=== PATIENT | male | born 1970 | race Caucasian/White ===

== ENCOUNTER → 2016-05-28 | Outpatient (CLI) | payer OTHER ==
[~2016-05-28] MED LIST: ALBUAER2 INH; ALLO100T57 PO; AMLO5TAB4 PO; ASPI-232 PO; ASPI81TA82 PO; B-COTAB81 PO; BISA-16 PO; CALC0.2510 PO; CALC1TAB23 PO; FRS/40 PO; INSPMPNVLG; LEVO-14 PO; LEVO25TA PO; LIDO1PAD2 EXT; LISI-461 PO; MULTTAB58 PO; OXYC1TAB3 PO; OXYC2.5T4 PO; SENN-65 PO; SIMV20TA2 PO; SNG10 PO; SYN200 PO; VNTHFA/IN INH
== END | disposition home or self-care (01) ==
LOC: C.LAB 13:01
PROVIDERS: ATTEND Nurse Practitioner Adult Health
DX: E03.9 Hypothyroidism, unspecified (principal)

== ENCOUNTER 2016-09-02 11:49 | Day surgery (SDC) | payer OTHER ==
[~2016-09-02] VITALS: Ht 161.3 cm; Wt 91.9 kg
[~2016-09-02 11:49] MED LIST changes: -ASPI-232 PO; -BISA-16 PO; +CEFAZOLIN 1000MG/55 ML D5W IV SCH; +CEFAZOLIN 2000 MG/60 ML D5W 60 ML IV SCH; +D5W AND 1/4NSS 1000 ML IV SCH; -LIDO1PAD2 EXT; -OXYC2.5T4 PO; +PATIENT'S HEIGHT AND/OR WEIGHT NEEDED SCH; -SENN-65 PO; -VNTHFA/IN INH
[2016-09-02 12:32] VITALS: Ht 161.3 cm; Wt 91.9 kg
--- NOTE | 2016-09-02 12:43 | History and Physical ---
History & Physical Date of Service Sep 02, 2016. History & Physical Chief Complaint: Malfunctioning left upper arm fistula History of Present Illness History of Present Illness: The patient is a 42 year old male with a left upper arm fistula which is not running properly. Allergies Allergies: Coded Allergies: Milk (Verified Allergy, Unknown, 07/16/04) Cyclobenzaprine (Verified Adverse Reaction, Mild, FELT "AWFUL", 04/25/09) PT FELT AWFUL Surgical / Medical History Hx Cardiac Surgery: No Hx Abdominal Surgery: Yes (LAP FAREED) Hx Cancer Surgery: No Hx Thoracic Surgery: No Hx Orthopedic: Yes (LEFT KNEE SCOPE, LEFT SHOULDER SCOPE) Hx Urinary Tract Surgery: No HX Other Surgery: Yes (FISTULA OCT 2011, STAPH INFECTION OF BACK DRAINED) Past Medical History: Asthma, Diabetes, Hypertension, Kidney Disease, Thyroid Disease Social History Hx Tobacco Use In Past Year?: No Hx Alcohol Use - Type & Amnt: No Hx Substance Use -Type & Amnt: No Review of Systems Constitutional: No chills, No diaphoresis, No fever, No malaise, No weakness, No weight gain, No weight loss, No sweats, No fatigue, No problem reported Respiratory: No cough, No cyanosis, No ZAPATA, No hemoptysis, No orthopnea, No PND , No short of breath, No sputum production, No stridor, No wheezing, No dyspnea , No problem reported Cardiovascular: No chest pain, No chest tightness, No chest pressure, No palpitations, No syncope, No diaphoresis, No edema, No intermittent claudication , No orthopnea, No cyanosis, No mumur, No lightheadedness, No paroxysmal nocturnal dyspnea, No problem reported Gastrointestinal: No abdominal pain, No constipation, No diarrhea, No nausea, No vomiting, No anorexia, No appetite changes, No belching, No flatulence, No food intolerance, No hematemesis, No hemorrhoids, No hematochezia, No stool changes, No heartburn, No indigestion, No dysphagia, No rectal bleeding, No problem reported Physical Exam: Constitutional: General Apperance: heathly-appearing, well-nourished, well-developed Level of Distress: NAD Ambulation: ambulating normally Psychiatric: Mental Status: active & alert, normal mood, normal affect Orientation: oriented except where noted, to time, to place, to person Memory: recent memory normal, remote memory normal Neck: supple Lungs: Auscultation: breath sounds normal Cardiovascular: Heart Auscultation: RRR Peripheral Pulses: Radial Pulse: normal on the left, normal on the right Femoral Pulse: normal on the left, normal on the right Abdomen: Inspection & Palpation: soft Extremities: Upper Right: no cyanosis, no edema, no varicosities, no palpable cord, no clubbing, no ulcers, no mottling Upper Left: no cyanosis, no edema, no varicosities, no palpable cord, no clubbing, no ulcers, no mottling, pertinent finding (thrill and bruit in fistula ) Lower Right: no cyanosis, no edema, no varicosities, no palpable cord, no clubbing, no ulcers, no mottling Lower Left: no cyanosis, no edema, no varicosities, no palpable cord, no clubbing, no ulcers, no mottling Neurologic: Cranial Nerves: grossly intact Sensation: grossly intact Assessment and Plan: Imp: Malfunctioning fistula Plan: Patient for a fistulogram and possible intervention. He understands the risks options and benefits and agrees to the procedure.
--- NOTE | 2016-09-02 12:43 | Procedure Note ---
Pre-Mod Sedation Assessment General Date of Moderate Sedation: Sep 02, 2016. Pre-Sedation Airway Assessment Smoking Status: Never Smoker Mallampati Classification: Class I ASA Classification: Class III Notes The planned sedation has been discussed with the patient and consent obtained. I have identified the patient, determined the appropriateness of sedation and have assessed the patient immediately prior to the procedure. All medicine(s) and interventions are by my order.
[2016-09-02] MEDS ORDERED: FENTANYL CITRATE INJ 50 MCG/1 ML 2 ML VIAL ONE (13:58)
[2016-09-02] MEDS ORDERED: MIDAZOLAM HCL 1 MG/ML 2ML VIAL ONE (13:58)
[2016-09-02 14:01] VITALS: BP 122/72; TEMP 36.8; O2SAT 96
[2016-09-02] MEDS ORDERED: MIDAZOLAM HCL 1 MG/ML 2ML VIAL IV ONE (14:28)
[2016-09-02] MEDS ORDERED: FENTANYL CITRATE INJ 50 MCG/1 ML 2 ML VIAL IV ONE ×2 (14:29→14:48)
[2016-09-02] MEDS ORDERED: LIDOCAINE HCL 1% 20 ML VIAL INJ ONE (14:50)
--- NOTE | 2016-09-02 14:56 | [facility] Post Operative Brief Note ---
Immediate Operative Summary Operative Date Sep 02, 2016. Pre-Operative Diagnosis Malfunctioning Fistula Post-Operative Diagnosis Same Procedure(s) Performed Fistulogram SERVICE AND REPAIR SUPERVISOR venous Moderate conscious sedation Surgeon Alfonso Bottle Machine Operator Surgeon(s) Rubia Hurt MD Estimated Blood Loss 3 Findings 10 residual stenosis Specimens none Anesthesia Local with conscious sedation Complication(s) None Disposition
--- NOTE | 2016-09-02 14:57 | Procedure Note ---
Post-Moderate Sedation Plan General Date of Moderate Sedation Sep 02, 2016. Vital Signs: Vital Signs Past 12 Hours Date Time Temp Pulse Resp B/P (MAP) Pulse Ox O2 Delivery O2 Flow Rate FiO2 09/02/16 14:01 36.8 22 122/72 96 Room Air Review - Discharge Plan Post Moderate Sedation Plan: On clinical assessment, the patient appears to have tolerated the conscious sedation without complications. Patient is recovering as anticipated. Patient will continue to be monitored by nursing and may be discharged when conscious sedation discharge criteria are met.
[2016-09-02] MEDS ORDERED: OPTIRAY 300 IV ONE (14:58)
--- NOTE | 2016-09-02 14:58 | Discharge Instructions ---
Discharge Instructions Date of Service Sep 02, 2016. Visit Reason for Visit: Malfunctioning Arteriovenous Fistula, Esrd Discharge Discharge Diagnosis / Problem: Malfunctioning left arm fistula Discharge Goals Goal(s): Therapeutic intervention Activity Recommendations Activity Limitations: resume your previous activity Anesthesia . Post Anesthesia Instructions: If you have had General Anesthesia or IV Sedation: * Do not drive today. * Resume driving when surgeon permits. * Do not make important decisions or sign legal documents today. * Call surgeon for: 1. Temperature elevations greater than 101 degrees F. 2. Uncontrollable pain. 3. Excessive bleeding. 4. Persistent nausea and vomiting. 5. Medication intolerance (nausea, vomiting or rash). * For nausea and vomiting use only clear liquids such as: tea, soda, bouillon until nausea subsides, then gradually increase diet as tolerated. * If you have any concerns or questions, call your surgeon's office. If physician is unavailable and it is an emergency, call 911 or go to the nearest emergency room. . Instructions / Follow-Up Instructions / Follow-Up Call [phone] with any questions or concerns. SPECIAL CARE INSTRUCTIONS: Medications: * Continue to take your medications as directed. If you have been given a prescription for Plavix, please fill it immediately and take as directed. Incision Care: * Your puncture site may have some bruising and minor swelling for about one week. * You will have a small dressing covering your puncture site. You may remove the dressing after 24 hours and shower. You may let the warm soapy water run over it, but be sure to dry the puncture site well and keep it dry. * DO NOT IMMERSE THE INCISION IN A TUB/POOL/etc. UNTIL HEALED. * Puncture sites should be kept covered with a band-aid until it begins to heal. Restrictions: * Depending on whether you leg or arm was punctured to access the arteries, you will be required to lay flat, hold your arm still, or both, for about 4 hours after the procedure to prevent bleeding. * Limit your activity for the first 48 hours. You may walk and go up and down steps. Avoid excessive bending or movement at the puncture site. Possible Complications: * Excessive Swelling - after blood flow is improved you may notice increased swelling in the lower legs. This is a normal response. This usually depends on the amount of blockages in the leg, how long they have been there prior to your procedure and how much blood flow was restored. Elevating your legs will help to improve this. Please notify our office ([phone] ) if the swelling does not go away after lying in bed overnight. * Infection/Drainage/Bleeding - Drainage or bleeding from the puncture site should be minimal. If you have excessive bleeding or drainage, call our office ([phone]) right away. * Pain - You may experience some mild pain or soreness at your puncture site. If your pain does not improve, please contact our office ([phone]). Call your doctor and seek emergent treatment if you develop: * Temperature above 101 degrees * Any fever or chills * Any redness or purulent drainage from the puncture site * Any new dusky/blue colored toes or feet with coolness or sharp or aching pain. SKIN IRRITATION: * You may experience some redness and/or swelling in the area where radiation was administered. If any skin irritation occurs, please contact your family physician. FOLLOW UP VISIT: Keep any scheduled doctor appointments. Diet Recommendations Recommended Home Diet: resume previous diet Procedures Procedures Performed: Fistulogram DE ICER INSTALLER venous Moderate conscious sedation Pending Studies Studies pending at discharge: no Medical Emergencies . Who to Call and When: Medical Emergencies: If at any time you feel your situation is an emergency, please call 911 immediately. . Non-Emergent Contact Non-Emergency issues call your: Surgeon . . "Provider Documentation" section prepared by Maurilio Hamilton. .
[2016-09-02 15:05] VITALS: BP 134/74; PULSE 64; TEMP 36.4; O2SAT 93
[2016-09-02 15:35] VITALS: BP 148/78; PULSE 68; TEMP 36.4; O2SAT 99
--- NOTE | 2016-09-03 07:50 | DIAGNOSTIC IMAGING REPORT ---
DATE OF PROCEDURE: 09/02/2016 PREOPERATIVE DIAGNOSIS: Left arm arteriovenous fistula dysfunction. POSTOPERATIVE DIAGNOSIS: Left arm arteriovenous fistula dysfunction. PROCEDURE: Left arm fistulogram. SURGEON: Dr. Maurilio Hamilton. DIRECTOR OF GIFT PLANNING: Dr. Rubia Hurt. ANESTHESIA: 26 minutes of conscious sedation plus local. FINDINGS: Left arm fistulogram, venoplasty of left arm fistula with 6 x 20 mm balloon. CONDITION: Stable. COMPLICATIONS: None. INDICATIONS: Mr. Arden Zayas is a 46-year-old gentleman with end-stage renal disease on hemodialysis through a left forearm AV fistula. His flow has been slowly decreasing over the past several months. For this reason, he was recommended to undergo a left arm fistulogram. The risks, benefits and alternatives were discussed with the patient and he consented to the procedure. OPERATION AND FINDINGS: PROCEDURE: The patient was taken to the [facility] OR and placed in supine position. His left arm was prepped and draped in the usual sterile fashion. A safety timeout was performed and the patient, procedure, and side were correctly identified. The patient was given 1 mg of Versed and 50 mg of fentanyl for conscious sedation. He received a total of 26 minutes for conscious sedation. Local anesthesia was used to anesthetize the skin overlying the fistula just proximal to the wrist. A micropuncture needle was used to access the fistula and micropuncture mandril wire placed within the access needle. Micropuncture sheath was placed and a fistulogram was obtained. This showed a small area of slight narrowing in the forearm vein. Further images were obtained of the upper arm and central venous structures and showed no areas of stenosis. An 0.035 Glidewire was placed through the micropuncture sheath and into the basilic vein in the forearm. The micropuncture sheath was exchanged for a 5-Upper Sorbian sheath. A 6 x 20 mm balloon was placed into the area of stenosis and inflated. Balloon was removed and a completion fistulogram was obtained which showed good flow throughout the fistula. There were no other areas of stenosis identified. The sheath was removed and manual pressure was held over the access site for several minutes with good hemostasis. The thrill was improved following venoplasty. A sterile dressing was applied. The patient was transferred to the recovery area in stable condition. He tolerated the procedure well and there were no immediate complications. Dr. Maurilio Hamilton was present for the entire procedure. I, Dr. Hamilton was present and scrubed for the entire procedure. WALE
[2016-09-10] MEDS ORDERED: SYN200 PO (19:02)
[2016-09-10] MEDS ORDERED: ASPI-232 PO (19:02)
[2016-09-16] MEDS ORDERED: OXYC2.5T4 PO ×2 (16:46→16:52)
[2016-09-16] MEDS ORDERED: LIDO1PAD2 EXT ×2 (16:46→16:52)
[2016-09-16] MEDS ORDERED: SENN-65 PO ×2 (16:46→16:52)
== END 2016-09-02 15:45 | disposition home or self-care (01) ==
LOC: C.ACU 11:49
PROVIDERS: ATTEND Surgery Vascular Surgery
DX: T82.49XA Other complication of vascular dialysis catheter, initial encounter (principal); Y83.2 Surgical operation with anastomosis, bypass or graft as the cause of abnormal reaction of the patient, or of later complication, without mention of misadventure at the time of the procedure; N18.6 End stage renal disease

== ENCOUNTER 2016-09-10 12:15 | Inpatient (IN) | payer OTHER ==
[~2016-09-10] VITALS: Ht 160 cm; Wt 91.9 kg
[~2016-09-10 12:15] MED LIST changes: -ASPI81TA82 PO; -CEFAZOLIN 1000MG/55 ML D5W IV SCH; -CEFAZOLIN 2000 MG/60 ML D5W 60 ML IV SCH; -D5W AND 1/4NSS 1000 ML IV SCH; -LEVO25TA PO; -LISI-461 PO; -PATIENT'S HEIGHT AND/OR WEIGHT NEEDED SCH
[2016-09-10] MEDS ORDERED: ONDANSETRON INJ 2 MG/ML 2 ML VIAL IV STA ×2 (12:39→13:54)
[2016-09-10] MEDS ORDERED: MoRPHine SULFATE 10 MG/ML CARP/VIAL IV PRN (12:45)
[2016-09-10 12:57] LABS: MEAN CELL VOLUME 96.8 fL (80-100); MEAN CORPUSCULAR HEMOGLOBIN 33.1 pg (25-34); MEAN CORPUSCULAR HGB CONC 34.2 g/dl (32-36); PLATELET COUNT 175 K/uL (130-400); RED BLOOD COUNT 3.72 M/uL (4.7-6.1); WHITE BLOOD COUNT 9.28 K/uL (4.8-10.8)
[2016-09-10 13:24] LABS: BUN/CREATININE RATIO 6.1 (10-20); CALCIUM 8.8 mg/dl (8.5-10.1); POTASSIUM 3.5 mmol/L (3.5-5.1)
[2016-09-10] MEDS: HYDROmorphone INJ 1 MG/ML SYR IV PRN ×2 (14:04→15:02)
--- NOTE | 2016-09-10 14:10 | DIAGNOSTIC IMAGING REPORT ---
CT SCAN OF THE ABDOMEN AND PELVIS WITHOUT IV CONTRAST CLINICAL HISTORY: Left flank pain. COMPARISON STUDY: Abdominal CT dated 08/01/2012. TECHNIQUE: CT scan of the abdomen and pelvis is performed from the lung bases to the proximal femora. Images are reviewed in the axial, sagittal, and coronal planes. IV contrast was not administered for this examination. Automated dose control exposure was utilized. CT DOSE: 1611.25 mGy.cm FINDINGS: Lung bases: The heart is normal in size and there is trace pericardial fluid. The lung bases are clear noting dependent atelectasis. There is mild gynecomastia. Liver: The unenhanced liver is normal in size, contour, and attenuation. There is no intrahepatic biliary ductal dilatation. Gallbladder: Surgically absent noting clips in the gallbladder fossa. Spleen: The spleen is enlarged measuring 14 cm in length. Pancreas: The unenhanced pancreas is mildly atrophic and grossly unremarkable. Adrenal glands: Unremarkable. Kidneys: The unenhanced kidneys are atrophic and without hydronephrosis. There are no renal calculi identified. There are renovascular calcifications. There is no evidence of contour deforming renal mass lesion. Abdominal vasculature: The abdominal aorta is normal in course and caliber. There is advanced atherosclerotic calcification of the iliac arteries and the visceral vasculature. Bowel: There is evidence of small bowel malrotation. The duodenum fails to cross midline. No bowel obstruction is seen. The colon is normal in location. The appendix is well-visualized and normal. Peritoneum: There is no intraperitoneal free air or abdominal ascites. Lymphadenopathy: None. Pelvic viscera: The bladder, prostate, and seminal vesicles are normal as visualized. Skeletal structures: No lytic or blastic lesions are seen. IMPRESSION: 1. There are no acute infectious or inflammatory findings in the abdomen or pelvis. 2. Splenomegaly. 3. The kidneys are atrophic. 4. There is evidence of small bowel malrotation. The duodenum fails to cross midline. No bowel obstruction is seen. 5. Additional findings as above. Electronically signed by: Jae Rivero M.D. 09/10/2016 2:09 PM Dictated Date/Time: 09/10/2016 2:03 PM
[2016-09-10] MEDS ORDERED: OPTIRAY 320 IV PRN (16:15)
[2016-09-10] MEDS ORDERED: SNG10 PO (16:16)
[2016-09-10] MEDS ORDERED: VNTHFA/IN INH (16:16)
--- NOTE | 2016-09-10 16:29 | DIAGNOSTIC IMAGING REPORT ---
CT ANGIOGRAM OF THE CHEST CLINICAL HISTORY: Left-sided chest pain. COMPARISON STUDY: Chest x-ray dated 10/03/2015. TECHNIQUE: Following the IV administration of 79 cc of Optiray 320, CT angiogram of the chest was performed from the upper abdomen to the thoracic inlet utilizing the pulmonary embolus protocol. Images are reviewed in the axial, sagittal, and coronal planes. 3-D MIPS images are created and assessed. IV contrast was administered without complication. CT DOSE: 588.13 mGy.cm FINDINGS: Thyroid: Imaged portions of the thyroid gland are normal in size and attenuation. Thoracic aorta: The thoracic aorta is normal in caliber and demonstrates standard 3-vessel arch anatomy. No dissection is seen. Pulmonary vasculature: The pulmonary trunk is normal in caliber. There are no filling defects identified in main, lobar, or segmental pulmonary branches to suggest pulmonary embolus. Heart: The heart is mildly enlarged and there is trace pericardial fluid. Lungs and pleural spaces: There is no airspace consolidation or pleural effusion. Dependent atelectasis is noted. A 2 mm left upper lobe nodule along the major fissure as seen on image #142. This is of doubtful significance. The trachea and central airways are clear. Mediastinum: There is no mediastinal lymphadenopathy. Ariana: Clear. Axillae: There is no axillary lymphadenopathy. Upper abdomen: Cholecystectomy clips are noted. A tiny hiatal hernia is noted. Partially visualized upper abdominal viscera is otherwise within normal limits. Skeletal structures: No lytic or blastic bony lesions are seen. IMPRESSION: 1. There is no evidence of pulmonary embolus in the main, lobar, or segmental pulmonary arteries. 2. There is no airspace consolidation or pleural effusion. 3. Mild cardiac enlargement. Electronically signed by: Jae Rivero M.D. 09/10/2016 4:27 PM Dictated Date/Time: 09/10/2016 4:24 PM
[2016-09-10] MEDS ORDERED: ONDANSETRON INJ 2 MG/ML 2 ML VIAL IV PRN (18:45)
[2016-09-10] MEDS ORDERED: FUROSEMIDE 40 MG TAB PO SCH (18:45)
[2016-09-10] MEDS ORDERED: ACETAMINOPHEN 325 MG TAB PO PRN (18:45)
[2016-09-10] MEDS ORDERED: MAGNESIUM HYDROXIDE SUSP 30 ML UDC PO PRN (18:45)
[2016-09-10] MEDS ORDERED: ALUMINUM/MAGNESIUM/SIMETH (MAALOX MAX) 30 ML UDC PO PRN (18:45)
[2016-09-10] MEDS ORDERED: ALBUTEROL HFA 8 GM INHALER INH PRN (18:45)
[2016-09-10] MEDS ORDERED: SYN200 PO (19:02)
[2016-09-10] MEDS ORDERED: ASPI-232 PO (19:02)
[2016-09-10 19:07] LABS: URINE APPEARANCE CLEAR (CLEAR); URINE BILIRUBIN NEG (NEG); URINE COLOR YELLOW; URINE EPITHELIAL CELL AUTO >30 /lpf (0-5); URINE NITRITE NEG (NEG); URINE PH 5.5 (4.5-7.5); URINE SPECIFIC GRAVITY 1.018 (1.000-1.030); UROBILINOGEN NEG (NEG); ZZUR CULT IF INDIC CLEAN CATCH YES
[2016-09-10 19:08] LABS: MANUAL MICROSCOPIC REQUIRED? NO; REVIEW REQ? YES
[2016-09-10] MEDS ORDERED: LACTULOSE SYRUP 30 GM/45 ML UDP PO ONE (19:30)
[2016-09-10] MEDS ORDERED: POLYETHYLENE (MIRALAX) 17 GM PACK PO PRN (19:30)
--- NOTE | 2016-09-10 19:51 | Nephrology Consultation ---
Nephrology Consultation Date & Providers Date of Consultation: Sep 10, 2016. Primary Care Provider: Tricia Sanchez M.D. Referring Provider: Reason for Consultation ESRD History of Present Illness Arden Zayas is a 46-year-old male end-stage renal disease on hemodialysis, diabetes type 1 and hypertension. He was admitted from the ED today with notable back pain. Nephrologic consult was requested for management of the hemodialysis. Electronic medical records including labs and imaging studies were reviewed in detail. CTA chest and CT abdomen and pelvis were obtained in the ED. MRI of the back planned for tomorrow. Arden is very well known to or service. He is currently on dialysis Tuesday, Tuesday, Tuesday [place] [facility] [place] He has AVF. He is currently active on transplant wait list at [facility]. He missed his scheduled treatment today. He was previously admitted to [facility] in 2014 with back pain. MRI of the lumbar spine at that time showing L3-L4 disc herniation on the right side causing impingement on the nerve root. He was seen by orthopedics and subsequently underwent laminectomy. He has history of prior disc herniation and laminectomy in 2013. He denies any recent trauma or specific injury. Past Medical/Surgical History Medical: Diabetes mellitus type 1 ESRD due to diabetic nephropathy Hypertension Dyslipidemia Obesity Asthma Hypothyroidism Surgical: Lumbar laminectomy, AVF, lap choley, arthroscopy Allergies Coded Allergies: Milk (Verified Allergy, Unknown, 09/10/16) Cyclobenzaprine (Verified Adverse Reaction, Mild, FELT "AWFUL", 09/10/16) PT FELT AWFUL Inpatient Medications Current Inpatient Medications Medications (Trade) Dose Ordered Sig/Rani Route Start Time Stop Time Status Last Admin Dose Admin Morphine Sulfate (MoRPHine SULFATE INJ) 6 mg Q10M PRN IV 09/10/16 12:45 09/24/16 12:44 09/10/16 12:45 6 MG Hydromorphone HCl (Dilaudid Inj) 1 mg Q15M PRN IV 09/10/16 14:00 09/24/16 13:59 09/10/16 15:02 1 MG Ioversol (Optiray 320) 100 ml UD PRN IV 09/10/16 16:15 09/14/16 16:14 Acetaminophen (Tylenol Tab) 650 mg Q4H PRN PO 09/10/16 18:45 10/10/16 18:44 Al Hydrox/Mg Hydrox/Simethicone (Maalox Max Susp) 15 ml Q4H PRN PO 09/10/16 18:45 10/10/16 18:44 Magnesium Hydroxide (Milk Of Magnesia Susp) 30 ml Q6H PRN PO 09/10/16 18:45 10/10/16 18:44 Polyethylene (Miralax Powder Packet) 17 gm DAILY PRN PO 09/10/16 19:30 10/10/16 19:29 Ondansetron HCl (Zofran Inj) 4 mg Q6H PRN IV 09/10/16 18:45 10/10/16 18:44 Albuterol (Ventolin Hfa Inhaler) 2 puffs Q6H PRN INH 09/10/16 18:45 10/10/16 18:44 UNV Allopurinol (Zyloprim Tab) 200 mg DAILY PO 09/11/16 09:00 10/11/16 08:59 UNV Amlodipine Besylate (Norvasc Tab) 5 mg HS PO 09/10/16 21:00 10/10/16 20:59 UNV Calcitriol (Rocaltrol Cap) 0.25 mcg DAILY PO 09/11/16 09:00 10/11/16 08:59 UNV Furosemide (Lasix Tab) 40 mg 1200 PO 09/11/16 12:00 10/11/16 11:59 UNV Montelukast Sodium (Singulair Tab) 10 mg HS PO 09/10/16 21:00 10/10/16 20:59 UNV Multivitamins (Multivitamin Tab) 1 tab DAILY PO 09/11/16 09:00 10/11/16 08:59 UNV Simvastatin (Zocor Tab) 20 mg HS PO 09/10/16 21:00 10/10/16 20:59 UNV Non-Formulary Medication (Calcium Acetate (Phosphate Bin (Calcium Acetate)) 2,001 mg TIDM PO 09/11/16 08:00 10/11/16 07:59 UNV Non-Formulary Medication (Levocetirizine Dihydrochloride (Levocetirizine Dihydrochl)) 5 mg HS PO 09/10/16 21:00 10/10/16 20:59 UNV Oxycodone/ Acetaminophen (Percocet 5-325mg Tab) 1 tab Q4H PRN PO 09/10/16 18:45 09/24/16 18:44 Hydromorphone HCl (Dilaudid Inj) 0.5 mg Q3HWA PRN IV 09/10/16 18:45 09/24/16 18:44 Insulin Glargine (Lantus Solostar Pen) 10 unit HS SC 09/10/16 21:00 10/10/16 20:59 UNV Insulin Aspart (novoLOG ASPART) SLIDING SCALE G... ACHS SC 09/10/16 21:00 10/10/16 20:59 UNV Furosemide (Lasix Tab) 80 mg AMHS PO 09/10/16 21:00 10/10/16 18:44 UNV Aspirin (Ecotrin Tab) 81 mg DAILY PO 09/11/16 09:00 10/11/16 08:59 UNV Multivitamins (Folbee Plus Cz Tab) 1 tab UD PO 09/10/16 19:15 10/10/16 19:14 UNV Levothyroxine Sodium (Synthroid Tab) 225 mcg DAILY PO 09/11/16 09:00 10/11/16 08:59 UNV Family History Depression SISTER Diabetes mellitus MOTHER SISTER FH: cancer FATHER (lung CA) AUNT (breast CA) SISTER (melanoma) UNCLE (melanoma) Social History Smoking Status: Never Smoker Drug Use: none Marital Status: Housing Status: lives with family Occupation: employed Review of Systems A complete review of systems was performed. Pertinent positives are noted above. All other systems are negative. Physical Exam Date Time Temp Pulse Resp B/P (MAP) Pulse Ox O2 Delivery O2 Flow Rate FiO2 09/10/16 17:14 76 18 134/77 93 Room Air 09/10/16 16:13 76 16 96 Nasal Cannula 2.0 09/10/16 15:07 70 16 149/81 98 Room Air 09/10/16 13:48 75 16 149/83 99 Room Air 09/10/16 12:19 36.8 77 20 151/84 98 Room Air General Appearance: WD/WN, no apparent distress Head: normocephalic, atraumatic Eyes: normal inspection, sclerae normal ENT: normal ENT inspection, pharynx normal Neck: supple, no JVD Respiratory/Chest: lungs clear, no respiratory distress, no accessory muscle use Cardiovascular: regular rate, rhythm, + systolic murmur Abdomen/GI: non tender, soft Back: no CVA tenderness Extremities/Musculoskelatal: normal inspection, no pedal edema Neurologic/Psych: alert, oriented x 3 Laboratory Results Last 24 Hours Test 09/10/16 12:40 09/10/16 18:40 White Blood Count 9.28 K/uL Red Blood Count 3.72 M/uL Hemoglobin 12.3 g/dL Hematocrit 36.0 % Mean Corpuscular Volume 96.8 fL Mean Corpuscular Hemoglobin 33.1 pg Mean Corpuscular Hemoglobin Concent 34.2 g/dl RDW Standard Deviation 51.0 fL RDW Coefficient of Variation 14.3 % Platelet Count 175 K/uL Mean Platelet Volume 11.0 fL Sodium Level 139 mmol/L Potassium Level 3.5 mmol/L Chloride Level 98 mmol/L Carbon Dioxide Level 28 mmol/L Anion Gap 13.0 mmol/L Blood Urea Nitrogen 61 mg/dl Creatinine 10.00 mg/dl Est Creatinine Clear Calc Drug Dose 9.2 ml/min Estimated GFR () 6.3 Estimated GFR (Non- 5.5 BUN/Creatinine Ratio 6.1 Random Glucose 96 mg/dl Calcium Level 8.8 mg/dl Troponin I < 0.015 ng/ml Urine Color YELLOW Urine Appearance CLEAR Urine pH 5.5 Urine Specific [place] 1.018 Urine Protein 2+ Urine Glucose (UA) NEG Urine Ketones NEG Urine Occult Blood 1+ Urine Nitrite NEG Urine Bilirubin NEG Urine Urobilinogen NEG Urine Leukocyte Esterase MODERATE Urine WBC (Auto) >30 /hpf Urine RBC (Auto) 0-4 /hpf Urine Hyaline Casts (Auto) 5-10 /lpf Urine Epithelial Cells (Auto) >30 /lpf Urine Bacteria (Auto) NEG Urine Renal Epithelial Cells /lpf Urine Yeast (Auto) Impression (1) End-stage renal disease on hemodialysis (2) Hypertension (3) Back pain (4) DM type 1 (diabetes mellitus, type 1) Arden Zayas is a 46-year-old male with end-stage renal disease on hemodialysis. Blood pressure, volume status and electrolytes are currently appropriate. Plan of care was discussed with the admitting physician and the ED. He is on dialysis Tuesday, Tuesday, Tuesday but missed treatment today. There is no emergent need for HD. We will schedule dialysis for tomorrow as an inpatient. Recommendations End-stage renal disease: -- Orders entered for HD tomorrow -- Renal diet -- Medications appropriate for renal function Hypertension: --continue on current antihypertensive medications and low-salt diet. Anemia: --hold BHARAT as hemoglobin above 11 Secondary hyperparathyroidism: --continue on phosphate binders with meals
--- NOTE | 2016-09-10 20:01 | HISTORY & PHYSICAL EXAMINATION ---
DATE OF ADMISSION: 09/10/2016 CHIEF COMPLAINT: Severe back pain and constipation. HISTORY OF PRESENT ILLNESS: This is a 46-year-old male with past medical history significant for end-stage renal disease on dialysis, hypertension, GERD, obesity, hyperlipidemia, gout, type 1 diabetes, hypothyroidism, allergic rhinitis, presents with severe back pain. The patient says that he did not move his bowels for the last 2 days. Patient works in the hospital. At work today, could not bend his back and had a severe intractable back pain, brought tears to his eyes and he was brought into the ER. He says the pain was in the left back and slightly radiating to his groin. CAT scan of the abdomen and pelvis did not show any kidney stone. He had a small bowel movement in the morning, but otherwise he did not move bowels for the last 2 days. Denies any fevers, chills, no headaches. No blurred visions. Has some cough, was nauseous earlier. Currently, still has significant pain but is better than in the morning and he missed his dialysis today. Hemodynamically stable. ALLERGIES: TO CYCLOBENZAPRINE, MILK PROTEIN. PAST MEDICAL HISTORY: As mentioned above. PAST SURGICAL HISTORY: Cardiac cath, knee arthroscopy, laser trabeculoplasty, cholecystectomy. MEDICATIONS: The patient is on levocetirizine 5 mg p.o. daily, Lasix 80 mg in a.m. and 80 mg in p.m. and 40 mg in the afternoon, Ventolin HFA 2 puffs every 4 hours p.r.n., Singulair 10 mg p.o. at bedtime, NovoLog insulin pump, calcium acetate 667 mg three tablets p.o. t.i.d. with meals, simvastatin 20 mg p.o. daily, Folbee Plus 5 mg three times a week, baby aspirin 81 mg p.o. daily, allopurinol 200 mg p.o. daily, amlodipine 5 mg p.o. daily, Levoxyl 225 mcg daily, calcitriol 0.25 mcg p.o. daily, multivitamin 1 tablet p.o. daily. FAMILY HISTORY: Significant for father had lung cancer. The patient has asbestos exposure. Mother had lung disorder, diabetes and lung cancer. Sister has depression. SOCIAL HISTORY: . Never smoked. No alcohol. No drug use. REVIEW OF SYMPTOMS: As per HPI. Rest of review of symptoms negative. PHYSICAL EXAMINATION: GENERAL: The patient is obese, not in distress. VITAL SIGNS: Temperature 36.8, pulse 76, respiratory rate 18, blood pressure 134/77, oxygen 93% on room air. HEENT: No pallor, no icterus. Pupils equal, round, and reactive to light. NECK: No JVD, no neck masses, no carotid bruits. CARDIOVASCULAR: S1, S2 heard, regular rate and rhythm, no murmur, no gallop. RESPIRATORY SYSTEM: Clear to auscultation bilaterally. No wheezing, no crackles. ABDOMEN: Soft, bowel sounds present. Nontender. No distention. MUSCULOSKELETAL: Some point tenderness in the left lumbar paraspinal region. No erythema was seen. CENTRAL NERVOUS SYSTEM: Nonfocal. EXTREMITIES: No edema. No erythema. LABORATORY DATA: Sodium 139, potassium 3.5, chloride 98, bicarb 28, BUN 61, creatinine 10, serum glucose 96, calcium 8.8. Troponin I less than 0.015. WBC 9.2, hemoglobin 12.3, hematocrit 36, platelets 175. IMAGING DATA: CT of the chest, no evidence of pulmonary embolus, no airspace consolidation, mild cardiac enlargement. CT of the abdomen and pelvis, no acute infectious or inflammatory findings in the abdomen or pelvis. Splenomegaly. Kidneys are atrophic. No bowel obstruction is seen. No kidney stones. EKG: Normal sinus rhythm with rate of 68, no acute ST changes seen. ASSESSMENT AND PLAN: This is a 46-year-old male, who presents with severe back pain and constipation. 1. Severe low back pain. Radiating to the groin, but CAT scan was unremarkable. The patient's pain is somewhat better now.Received morphine, Dilaudid in the ER. We will observe. I will get MRI of the lumbar spine. Pain control. We will do a physical therapy, occupational therapy evaluation. 2. Constipation. We will place him on stool softeners. 3. End-stage renal disease on hemodialysis, missed dialysis today. Plan for dialysis in a.m. Nephrology consult. 4. Type 1 diabetes, on insulin pump. We will hold insulin pump for now and place him on insulin sliding scale and Lantus. We will monitor blood sugar. 5. Hypertension. Continue his home medications, amlodipine. We will monitor the blood pressure. 6. Gastroesophageal reflux disease. 7. Gout, allopurinol. 8. Asthma. Continue his home medications. 9. Deep vein thrombosis prophylaxis, SCDs and TEDs. 9. Disposition: Observation on medical floor. Level 1 full code. MTDD
[2016-09-10] MEDS ORDERED: GLUCOSE 40% GEL 15 GM TUBE PO PRN (20:30)
[2016-09-10] MEDS ORDERED: GLUCAGON FOR INJ 1 MG VIAL SQ PRN (20:30)
[2016-09-10] MEDS ORDERED: DEXTROSE 50% 50 ML SYR IV PRN (20:30)
[2016-09-10] MEDS ORDERED: GLUCOSE 10 TABS/TUBE PO PRN (20:30)
--- NOTE | 2016-09-10 20:57 | EMERGENCY ROOM VISIT NOTE ---
History Report prepared by Rupa: Michael Benson Under the Supervision of: Dr. Mateo Hendricks M.D. First contact with patient: 13:08 Chief Complaint: FLANK PAIN Stated Complaint: CONSTIPATED, PAIN History of Present Illness The patient is a 46 year old male who presents to the Emergency Room with complaints of worsening left flank pain that started a few hours ago. The patient says that he has also had left back pain. He says that he had a bit of pain last night and the pain got better until he sat down for lunch earlier today, and the pain then worsened a lot. He notes that he has never had anything this bad before. The patient is currently on dialysis, and today is a day that he should have it, but he called the clinic and was told that they will try to come here to do something for the patient. The patient was given medication here, which he says has helped a bit, but he still cannot get a full breath without having a lot of pain. Breathing worsens his pain. The patient states that he has been constipated this week, but he did have a very small bowel movement around 0830 this morning. He says that he had been constipated 4 or 5 months ago, but it resolved quickly with medication. The patient adds that he can only make a bit of urine. He has no history of kidney stones. The patient has a history of cholecystectomy, back surgeries, shoulder surgery, and diabetes. Pt denies LOC, headache, fevers, chills, diaphoresis, visual changes, neck pain, chest pain, nausea, vomiting, abdominal pain, melena, hematochezia, numbness, weakness, lymphadenopathy, rash, or other complaints. Source of History: patient Onset: A few hours ago Position: other (left flank) Quality: other (pain) Timing: worsening Modifying Factors (Worsening): breathing Associated Symptoms: + back pain (left), + urinary symptoms (can only make a bit of urine) Note: Associated symptoms: Bit of constipation this week. Review of Systems See HPI for pertinent positives and negatives. A total of ten systems were reviewed and were otherwise negative. Past Medical & Surgical Medical Problems: (1) Anemia (2) Asthma (3) Constipation (4) Diabetic retinopathy (5) DM type 1 (diabetes mellitus, type 1) (6) End-stage renal disease on hemodialysis (7) GERD (gastroesophageal reflux disease) (8) Gout (9) Hypercholesteremia (10) Hypertension (11) Hypothyroidism (12) S/p laser surgery of eye Surgical Problems: (1) H/O arthroscopic knee surgery (2) S/P cholecystectomy (3) S/P lumbar laminectomy Family History Depression SISTER Diabetes mellitus MOTHER SISTER FH: cancer FATHER (lung CA) AUNT (breast CA) SISTER (melanoma) UNCLE (melanoma) Social History Smoking Status: Never Smoker Drug Use: none Marital Status: Housing Status: lives with family Occupation Status: employed Current/Historical Medications Scheduled Albuterol Hfa (Ventolin Hfa), 2-4 PUFFS INH Q6H Allopurinol (Zyloprim), 200 MG PO DAILY Amlodipine Besylate (Norvasc), 5 MG PO HS Aspirin (Aspir-81), 1 TAB PO DAILY B-Complex W/ B-Ptrwej-Feqowvmj (Folbee Plus Cz), 1 TAB PO MWF Calcitriol (Rocaltrol Cap), 0.25 MCG PO DAILY Calcium Acetate (Phosphate Bin (Calcium Acetate), 2,001 MG PO TIDM Furosemide (Lasix), 80 MG PO am & pm Furosemide (Lasix), 40 MG PO 1200 Insulin Aspart (novoLOG INSULIN PUMP ), 1 EA N/A UD Levocetirizine Dihydrochloride (Levocetirizine Dihydrochl), 5 MG PO HS Levothyroxine Sodium (Synthroid), 225 MCG PO DAILY Montelukast Sod (Montelukast Sodium), 1 TAB PO HS Multiple Vitamin (Multivitamin), 1 TAB PO DAILY Simvastatin (Zocor), 20 MG PO HS Allergies Coded Allergies: Milk (Verified Allergy, Unknown, 09/10/16) Cyclobenzaprine (Verified Adverse Reaction, Mild, FELT "AWFUL", 09/10/16) PT FELT AWFUL Physical Exam Vital Signs Date Time Temp Pulse Resp B/P (MAP) Pulse Ox O2 Delivery O2 Flow Rate FiO2 09/10/16 19:50 81 16 131/92 96 Room Air 09/10/16 17:14 76 18 134/77 93 Room Air 09/10/16 16:13 76 16 96 Nasal Cannula 2.0 09/10/16 15:07 70 16 149/81 98 Room Air 09/10/16 13:48 75 16 149/83 99 Room Air 09/10/16 12:19 36.8 77 20 151/84 98 Room Air Physical Exam GENERAL: Awake, alert, uncomfortable appearing HENT: Normocephalic, atraumatic. Oropharynx unremarkable. EYES: Normal conjunctiva. Sclera non-icteric. NECK: Supple. No nuchal rigidity. FROM. No JVD. RESPIRATORY: Clear to auscultation. CARDIAC: Regular rate, normal rhythm. Extremities warm and well perfused. Pulses equal. ABDOMEN: Soft, non-distended. No tenderness to palpation. No rebound or guarding. No masses. RECTAL: Deferred. MUSCULOSKELETAL: Chest examination reveals no tenderness. The back is symmetrical on inspection without obvious abnormality. Left flank tenderness. Left CVA tenderness. No joint edema. LOWER EXTREMITIES: Trace lower extremity edema.. No discoloration. NEURO: Normal sensorium. No sensory or motor deficits noted. SKIN: No rash or jaundice noted. Medical Decision & Procedures ER Provider Diagnostic Interpretation: CT: Radiology results as stated below per my review and radiologist interpretation CT SCAN OF THE ABDOMEN AND PELVIS WITHOUT IV CONTRAST CLINICAL HISTORY: Left flank pain. COMPARISON STUDY: Abdominal CT dated 08/01/2012. TECHNIQUE: CT scan of the abdomen and pelvis is performed from the lung bases to the proximal femora. Images are reviewed in the axial, sagittal, and coronal planes. IV contrast was not administered for this examination. Automated dose control exposure was utilized. CT DOSE: 1611.25 mGy.cm FINDINGS: Lung bases: The heart is normal in size and there is trace pericardial fluid. The lung bases are clear noting dependent atelectasis. There is mild gynecomastia. Liver: The unenhanced liver is normal in size, contour, and attenuation. There is no intrahepatic biliary ductal dilatation. Gallbladder: Surgically absent noting clips in the gallbladder fossa. Spleen: The spleen is enlarged measuring 14 cm in length. Pancreas: The unenhanced pancreas is mildly atrophic and grossly unremarkable. Adrenal glands: Unremarkable. Kidneys: The unenhanced kidneys are atrophic and without hydronephrosis. There are no renal calculi identified. There are renovascular calcifications. There is no evidence of contour deforming renal mass lesion. Abdominal vasculature: The abdominal aorta is normal in course and caliber. There is advanced atherosclerotic calcification of the iliac arteries and the visceral vasculature. Bowel: There is evidence of small bowel malrotation. The duodenum fails to cross midline. No bowel obstruction is seen. The colon is normal in location. The appendix is well-visualized and normal. Peritoneum: There is no intraperitoneal free air or abdominal ascites. Lymphadenopathy: None. Pelvic viscera: The bladder, prostate, and seminal vesicles are normal as visualized. Skeletal structures: No lytic or blastic lesions are seen. IMPRESSION: 1. There are no acute infectious or inflammatory findings in the abdomen or pelvis. 2. Splenomegaly. 3. The kidneys are atrophic. 4. There is evidence of small bowel malrotation. The duodenum fails to cross midline. No bowel obstruction is seen. 5. Additional findings as above. Electronically signed by: Jae Rivero M.D. 09/10/2016 2:09 PM Dictated Date/Time: 09/10/2016 2:[address] ANGIOGRAM OF THE CHEST CLINICAL HISTORY: Left-sided chest pain. COMPARISON STUDY: Chest x-ray dated 10/03/2015. TECHNIQUE: Following the IV administration of 79 cc of Optiray 320, CT angiogram of the chest was performed from the upper abdomen to the thoracic inlet utilizing the pulmonary embolus protocol. Images are reviewed in the axial, sagittal, and coronal planes. 3-D MIPS images are created and assessed. IV contrast was administered without complication. CT DOSE: 588.13 mGy.cm FINDINGS: Thyroid: Imaged portions of the thyroid gland are normal in size and attenuation. Thoracic aorta: The thoracic aorta is normal in caliber and demonstrates standard 3-vessel arch anatomy. No dissection is seen. Pulmonary vasculature: The pulmonary trunk is normal in caliber. There are no filling defects identified in main, lobar, or segmental pulmonary branches to suggest pulmonary embolus. Heart: The heart is mildly enlarged and there is trace pericardial fluid. Lungs and pleural spaces: There is no airspace consolidation or pleural effusion. Dependent atelectasis is noted. A 2 mm left upper lobe nodule along the major fissure as seen on image #142. This is of doubtful significance. The trachea and central airways are clear. Mediastinum: There is no mediastinal lymphadenopathy. Ariana: Clear. Axillae: There is no axillary lymphadenopathy. Upper abdomen: Cholecystectomy clips are noted. A tiny hiatal hernia is noted. Partially visualized upper abdominal viscera is otherwise within normal limits. Skeletal structures: No lytic or blastic bony lesions are seen. IMPRESSION: 1. There is no evidence of pulmonary embolus in the main, lobar, or segmental pulmonary arteries. 2. There is no airspace consolidation or pleural effusion. 3. Mild cardiac enlargement. Electronically signed by: Jae Rivero M.D. 09/10/2016 4:27 PM Dictated Date/Time: 09/10/2016 4:24 PM Laboratory Results 09/10/16 12:40 09/10/16 12:40 Test 09/10/16 12:40 09/10/16 18:40 Red Blood Count 3.72 M/uL (4.7-6.1) Mean Corpuscular Volume 96.8 fL (80-100) Mean Corpuscular Hemoglobin 33.1 pg (25-34) Mean Corpuscular Hemoglobin Concent 34.2 g/dl (32-36) RDW Standard Deviation 51.0 fL (36.4-46.3) RDW Coefficient of Variation 14.3 % (11.5-14.5) Mean Platelet Volume 11.0 fL (7.4-10.4) Anion Gap 13.0 mmol/L (3-11) Est Creatinine Clear Calc Drug Dose 9.2 ml/min Estimated GFR () 6.3 Estimated GFR (Non- 5.5 BUN/Creatinine Ratio 6.1 (10-20) Calcium Level 8.8 mg/dl (8.5-10.1) Troponin I < 0.015 ng/ml (0-0.045) Urine Color YELLOW Urine Appearance CLEAR (CLEAR) Urine pH 5.5 (4.5-7.5) Urine Specific [place] 1.018 (1.000-1.030) Urine Protein 2+ (NEG) Urine Glucose (UA) NEG (NEG) Urine Ketones NEG (NEG) Urine Occult Blood 1+ (NEG) Urine Nitrite NEG (NEG) Urine Bilirubin NEG (NEG) Urine Urobilinogen NEG (NEG) Urine Leukocyte Esterase MODERATE (NEG) Urine WBC (Auto) >30 /hpf (0-5) Urine RBC (Auto) 0-4 /hpf (0-4) Urine Hyaline Casts (Auto) 5-10 /lpf (0-5) Urine Epithelial Cells (Auto) >30 /lpf (0-5) Urine Bacteria (Auto) NEG (NEG) Urine Renal Epithelial Cells /lpf (0-5) Urine Yeast (Auto) (NONE PRSENT) Laboratory results reviewed by me Medications Administered Medications (Trade) Dose Ordered Sig/Rani Route Start Time Stop Time Status Last Admin Dose Admin Ondansetron HCl (Zofran Inj) 4 mg NOW STAT IV 09/10/16 12:39 09/10/16 12:41 DC 09/10/16 12:45 4 MG Morphine Sulfate (MoRPHine SULFATE INJ) 6 mg Q10M PRN IV 09/10/16 12:45 09/24/16 12:44 09/10/16 12:45 6 MG Hydromorphone HCl (Dilaudid Inj) 1 mg Q15M PRN IV 09/10/16 14:00 09/24/16 13:59 09/10/16 15:02 1 MG Lactulose (Chronulac Syrup) 30 gm 1930 ONCE PO 09/10/16 19:30 09/10/16 19:31 DC 09/10/16 19:30 30 GM ECG Indication: SOB/dyspnea Rate (beats per minute): 68 Rhythm: normal sinus Findings: no acute ischemic change, no ectopy ED Course 1311: The patient was evaluated in room B7. A complete history and physical exam was performed. 1354: Ordered Zofran Inj 4 mg IV. 1400: Ordered Dilaudid Inj 1 mg IV PRN. 1535: I reevaluated and updated the patient. 1543: I discussed the patient with Dr. Delroy JOSE nephrology about doing a CT with contrast. He says that if we do that it would be best to keep the patient in the hospital overnight and do dialysis the next morning. 1600: I reevaluated the patient and told him that we will be getting him a CT of his chest. The patient has received a total of 1 dose of Morphine and 2 doses of Dilaudid. 1754: Upon reexamination, the patient was resting. I discussed the test results and treatment plan with him. The patient will be evaluated for further management. 1811: I discussed the patient with Mary Kate Cuevas - she will evaluate the patient for further treatment. Medical Decision Medication Reconciliation: I attest that I have personally reviewed the patient' s current medication list Blood pressure screening: Patient was found to have an elevated blood pressure and was referred to their primary doctor for recheck and further treatment. Triage Nursing notes reviewed. The patient's presentation and history were concerning for flank pain. Etiologies such as renal colic, diverticulitis, mesenteric ischemia, aortic pathology, infections, inflammatory bowel disease, PUD, biliary pathology, UTI, as well as others were entertained. The patient was quite uncomfortable. He was given Zofran and morphine. I was concerned for renal colic. The patient's cc was unremarkable. His creatinine was elevated consistent with end-stage renal disease. He CT imaging and this was negative. The patient was given a dose of Zofran and Dilaudid for additional symptom control. He did note additional pain and it seemed to be somewhat pleuritic as he was taking a deep breath and this was worsening. The patient will need further evaluation. I did discuss the case with nephrology because he will need IV contrast for a PE study. They will dialyze the patient in the hospital tomorrow morning if he goes through with the CT study. The patient underwent CT imaging and this did not reveal any evidence of pulmonary embolism. There is no clear identifying source of the patient's pain. This may be musculoskeletal. However the patient did require an additional dose of Dilaudid. I discussed case with internal medicine. The patient was evaluated in the Emergency Room for further management. Consults Time Called: 1535 Consulting Physician: Dr. Delroy JOSE nephrology Returned Call: [phone] I discussed the patient with Dr. Delroy JOSE nephrology about doing a CT with contrast. He says that if we do that it would be best to keep the patient in the hospital overnight and do dialysis the next morning. Additional Consults: Time Called: 1806 Consulted Physician: Mary Kate Cuevas Returned Call: [phone] Additional Comments: I discussed the patient with Mary Kate Cuevas - she will evaluate the patient for further treatment. Impression Primary Impression: Left flank pain Scribe Attestation The scribe's documentation has been prepared under my direction and personally reviewed by me in its entirety. I confirm that the note above accurately reflects all work, treatment, procedures, and medical decision making performed by me. Departure Information Dispostion Being Evaluated By Hospitalist Prescriptions Aspirin (ASPIR-81) 81 Mg Tab 1 TAB PO DAILY for 90 Days, #90 TAB 1 Refill Prov: Nael Link MD 09/10/16 Levothyroxine Sodium (Synthroid) 200 Mcg Tab 225 MCG PO DAILY, #90 Prov: Nael Link MD 09/10/16 Referrals Tricia Sanchez M.D. (PCP) Patient Instructions [facility]
[2016-09-10] MEDS ORDERED: LEVOCETIRIZINE DIHYDROCHLORIDE 5 MG PO SCH (21:00)
[2016-09-10] MEDS: INSULIN ASPART 100 UNITS/ML 3 ML PEN SC SCH ×2 (21:00→22:00)
--- NOTE | 2016-09-10 21:24 | DIAGNOSTIC IMAGING REPORT ---
LUMBAR SPINE MRI HISTORY: Back pain severe back pain TECHNIQUE: Multiplanar multisequence MRI of the lumbar spine was performed without the use of contrast. COMPARISON: 12/24/2014 FINDINGS: For the purpose of the report the L5-S1 disc space will be located on axial image 26 of 29. Moderate degenerative disc change throughout the mid to lower lumbar region. Stable postoperative changes involving the posterior paraspinal subcutaneous fat and musculature. This is similar compared to the prior study. L1-L2: No significant central canal or neural foraminal narrowing. L2-L3: No significant central canal or neural foraminal narrowing. L3-L4: Mild broad-based bulging disc somewhat diminished in prominence from the prior study. L4-L5: Left central bulging disc slightly diminished in prominence in the prior study. Mild narrowing of the neuroforamina bilaterally. L5-S1: No significant central canal or neural foraminal narrowing. IMPRESSION: 1. Similar to slightly improved exam compared to the prior study of 12/24/2014. 2. Bulging discs at L3-L4 and L4-L5 slightly improved from the prior study. 3. No evidence for an extruded disc fragment or major compromise of the neuroforamina on the current exam. 4. No evidence for progressive process. Electronically signed by: Handy Reyes M.D. 09/10/2016 9:23 PM Dictated Date/Time: 09/10/2016 9:18 PM
[2016-09-10] MEDS: HYDROmorphone INJ 0.5 MG/0.5 ML SYR IV PRN (21:26)
[2016-09-10 21:55] VITALS: BP 153/81; PULSE 70; TEMP 36.7; O2SAT 96; Ht 160 cm; Wt 91.9 kg
[2016-09-10] MEDS: AMLODIPINE BESYLATE 5 MG TAB PO SCH (22:39)
[2016-09-10] MEDS: MONTELUKAST SOD 10 MG TAB PO SCH (22:39)
[2016-09-10] MEDS: FUROSEMIDE 80 MG TAB PO SCH (22:39)
[2016-09-10] MEDS: SIMVASTATIN 20 MG TAB PO SCH (22:40)
[2016-09-10] MEDS: INSULIN GLARGINE SOLOSTAR 100 UNITS/ML 3 ML PEN SC SCH (22:43)
[2016-09-11] VITALS (21 sets, daily range): BP systolic 108–166; BP diastolic 58–90; PULSE 53–72; TEMP 36.4–36.8; O2SAT 95–100
[2016-09-11] MEDS: HYDROmorphone INJ 0.5 MG/0.5 ML SYR IV PRN ×6 (01:07→20:44)
[2016-09-11] MEDS: LEVOTHYROXINE SODIUM TAB 200 MCG, LEVOTHYROXINE SODIUM TAB 25 MCG PO SCH ×2 (07:04)
[2016-09-11 07:06] LABS: BASO % 0.3 %; BASO ABS # 0.02 K/uL (0-0.2); COMPLETE YES; EOS % 2.9 %; HEMATOCRIT 32.5 % (42-52); IG% 0.7 %; LYMPH ABS # 1.23 K/uL (1.2-3.4); MEAN CELL VOLUME 97.6 fL (80-100); MEAN CORPUSCULAR HEMOGLOBIN 32.7 pg (25-34); MEAN CORPUSCULAR HGB CONC 33.5 g/dl (32-36); MEAN PLATELET VOLUME 11.1 fL (7.4-10.4); MONO % 9.1 %; PLATELET COUNT 146 K/uL (130-400); RED BLOOD COUNT 3.33 M/uL (4.7-6.1); WHITE BLOOD COUNT 7.22 K/uL (4.8-10.8)
[2016-09-11] MEDS: ALLOPURINOL 100 MG TAB PO SCH (07:49)
[2016-09-11] MEDS: CALCIUM ACETATE 667MG GELCAP PO SCH ×3 (07:49→17:54)
[2016-09-11] MEDS: CALCITRIOL 0.25 MCG CAP PO SCH (07:49)
[2016-09-11] MEDS: FUROSEMIDE 80 MG TAB PO SCH ×2 (07:49→20:51)
[2016-09-11 07:50] LABS: BUN/CREATININE RATIO 5.5 (10-20); CALCIUM 8.1 mg/dl (8.5-10.1); MAGNESIUM 2.4 mg/dl (1.8-2.4); POTASSIUM 3.4 mmol/L (3.5-5.1)
[2016-09-11] MEDS: MULTIVITAMIN TAB PO SCH (07:50)
[2016-09-11] MEDS: ASPIRIN 81 MG ECTAB PO SCH (07:51)
[2016-09-11] MEDS ORDERED: LEVOTHYROXINE 200 MCG TAB PO SCH ×2 (08:00→09:00)
[2016-09-11] MEDS: INSULIN ASPART 100 UNITS/ML 3 ML PEN SC SCH ×4 (08:40→22:11)
[2016-09-11 08:45] LABS: ESTIMATED AVERAGE GLUCOSE 131 mg/dl; HA1C FLAG Normal (Normal)
--- NOTE | 2016-09-11 11:22 | Nephrology Progress Note ---
Nephrology Progress Note Date of Service Sep 11, 2016. Chief Complaint Follow-up for end-stage renal disease on hemodialysis. Sayra Castro was seen and examined in his room this morning. He continues to have severe lower back pain, responds to Dilaudid but requiring every 3 hours. Blood pressure and electrolyte acceptable, denies any shortness of breath or chest pain. Review of Systems A complete review of systems was performed. Pertinent positives are noted above. All other systems are negative. Vital Signs Last 8 Hrs Date Time Temp Pulse Resp B/P (MAP) Pulse Ox O2 Delivery O2 Flow Rate FiO2 09/11/16 08:45 Room Air 09/11/16 07:25 36.6 64 18 138/75 (96) 98 Last Recorded Weight Weight (Kilograms): 92.800 Physical Exam GENERAL: Middle-aged male, AAA x 3, pleasant, healthy-appearing, not in any distress. NECK: Supple, no JVD. RESPIRATORY: Normal breathing efforts, no accessory muscle use, clear to auscultation bilaterally, no wheezes or rales. CARDIOVASCULAR: S1, S2 normal, rate rhythm regular. EXTREMITY: trace bilateral lower extremity edema NEURO: speech fluent. PSYCHIATRY: Normal mood and judgment Family History Depression SISTER Diabetes mellitus MOTHER SISTER FH: cancer FATHER (lung CA) AUNT (breast CA) SISTER (melanoma) UNCLE (melanoma) Social History Smoking Status: Never smoker Drug Use: none Marital Status: Housing Status: lives with family Occupation: employed Laboratory Results Past 24 Hours 09/10/16 12:40 09/11/16 06:43 Red Blood Count 3.33, Mean Corpuscular Volume 97.6, Mean Corpuscular Hemoglobin 32.7, Mean Corpuscular Hemoglobin Concent 33.5, Mean Platelet Volume 11.1, Neutrophils (%) (Auto) 70.0, Lymphocytes (%) (Auto) 17.0, Monocytes (%) (Auto) 9.1, Eosinophils (%) (Auto) 2.9, Basophils (%) (Auto) 0.3, Neutrophils # (Auto) 5.05, Lymphocytes # (Auto) 1.23, Monocytes # (Auto) 0.66, Eosinophils # (Auto) 0.21, Basophils # (Auto) 0.02 09/10/16 12:40 09/11/16 06:43 Test 09/10/16 12:40 09/10/16 18:40 09/10/16 21:25 09/11/16 06:43 Red Blood Count 3.72 M/uL (4.7-6.1) 3.33 M/uL (4.7-6.1) Mean Corpuscular Volume 96.8 fL (80-100) 97.6 fL (80-100) Mean Corpuscular Hemoglobin 33.1 pg (25-34) 32.7 pg (25-34) Mean Corpuscular Hemoglobin Concent 34.2 g/dl (32-36) 33.5 g/dl (32-36) RDW Standard Deviation 51.0 fL (36.4-46.3) 51.2 fL (36.4-46.3) RDW Coefficient of Variation 14.3 % (11.5-14.5) 14.4 % (11.5-14.5) Mean Platelet Volume 11.0 fL (7.4-10.4) 11.1 fL (7.4-10.4) Anion Gap 13.0 mmol/L (3-11) 14.0 mmol/L (3-11) Est Creatinine Clear Calc Drug Dose 9.2 ml/min 8.3 ml/min Estimated GFR () 6.3 5.7 Estimated GFR (Non- 5.5 4.9 BUN/Creatinine Ratio 6.1 (10-20) 5.5 (10-20) Calcium Level 8.8 mg/dl (8.5-10.1) 8.1 mg/dl (8.5-10.1) Troponin I < 0.015 ng/ml (0-0.045) Urine Color YELLOW Urine Appearance CLEAR (CLEAR) Urine pH 5.5 (4.5-7.5) Urine Specific Peck 1.018 (1.000-1.030) Urine Protein 2+ (NEG) Urine Glucose (UA) NEG (NEG) Urine Ketones NEG (NEG) Urine Occult Blood 1+ (NEG) Urine Nitrite NEG (NEG) Urine Bilirubin NEG (NEG) Urine Urobilinogen NEG (NEG) Urine Leukocyte Esterase MODERATE (NEG) Urine WBC (Auto) >30 /hpf (0-5) Urine RBC (Auto) 0-4 /hpf (0-4) Urine Hyaline Casts (Auto) 5-10 /lpf (0-5) Urine Epithelial Cells (Auto) >30 /lpf (0-5) Urine Bacteria (Auto) NEG (NEG) Urine Renal Epithelial Cells /lpf (0-5) Urine Yeast (Auto) (NONE PRSENT) Bedside Glucose 134 mg/dl (70-99) White Blood Count 7.22 K/uL (4.8-10.8) Hemoglobin 10.9 g/dL (14.0-18.0) Hematocrit 32.5 % (42-52) Platelet Count 146 K/uL (130-400) Neutrophils (%) (Auto) 70.0 % Lymphocytes (%) (Auto) 17.0 % Monocytes (%) (Auto) 9.1 % Eosinophils (%) (Auto) 2.9 % Basophils (%) (Auto) 0.3 % Neutrophils # (Auto) 5.05 K/uL (1.4-6.5) Lymphocytes # (Auto) 1.23 K/uL (1.2-3.4) Monocytes # (Auto) 0.66 K/uL (0.11-0.59) Eosinophils # (Auto) 0.21 K/uL (0-0.5) Basophils # (Auto) 0.02 K/uL (0-0.2) Immature Granulocyte % (Auto) 0.7 % Immature Granulocyte # (Auto) 0.05 K/uL (0.00-0.02) Magnesium Level 2.4 mg/dl (1.8-2.4) Test 09/11/16 06:45 09/11/16 07:19 Estimated Average Glucose 131 mg/dl Hemoglobin A1c 6.2 % (4.5-5.6) Bedside Glucose 181 mg/dl (70-99) Date/Time Source Procedure Growth Status 09/10/16 22:30 Nasal MRSA DNA Surveillance Screen - Final Specimen Negative for MRSA by DNA Probe Complete Allergies Coded Allergies: Milk (Verified Allergy, Unknown, 09/10/16) Cyclobenzaprine (Verified Adverse Reaction, Mild, FELT "AWFUL", 09/10/16) PT FELT AWFUL Medications Current Inpatient Medications Medications (Trade) Dose Ordered Sig/Rani Route Start Time Stop Time Status Last Admin Dose Admin Ioversol (Optiray 320) 100 ml UD PRN IV 09/10/16 16:15 09/14/16 16:14 Acetaminophen (Tylenol Tab) 650 mg Q4H PRN PO 09/10/16 18:45 10/10/16 18:44 Al Hydrox/Mg Hydrox/Simethicone (Maalox Max Susp) 15 ml Q4H PRN PO 09/10/16 18:45 10/10/16 18:44 Magnesium Hydroxide (Milk Of Magnesia Susp) 30 ml Q6H PRN PO 09/10/16 18:45 10/10/16 18:44 Polyethylene (Miralax Powder Packet) 17 gm DAILY PRN PO 09/10/16 19:30 10/10/16 19:29 Ondansetron HCl (Zofran Inj) 4 mg Q6H PRN IV 09/10/16 18:45 10/10/16 18:44 Albuterol (Ventolin Hfa Inhaler) 2 puffs Q6H PRN INH 09/10/16 18:45 10/10/16 18:44 Allopurinol (Zyloprim Tab) 200 mg DAILY PO 09/11/16 08:00 10/11/16 08:59 09/11/16 07:49 200 MG Amlodipine Besylate (Norvasc Tab) 5 mg HS PO 09/10/16 21:00 10/10/16 20:59 09/10/16 22:39 5 MG Calcitriol (Rocaltrol Cap) 0.25 mcg DAILY PO 09/11/16 08:00 10/11/16 08:59 09/11/16 07:49 0.25 MCG Furosemide (Lasix Tab) 40 mg DAILY@1200 PO 09/11/16 12:00 10/11/16 11:59 Montelukast Sodium (Singulair Tab) 10 mg HS PO 09/10/16 21:00 10/10/16 20:59 09/10/16 22:39 10 MG Multivitamins (Multivitamin Tab) 1 tab DAILY PO 09/11/16 08:00 10/11/16 08:59 09/11/16 07:50 1 TAB Simvastatin (Zocor Tab) 20 mg HS PO 09/10/16 21:00 10/10/16 20:59 09/10/16 22:40 20 MG Calcium Acetate (Phoslo Cap) 2,001 mg TIDM PO 09/11/16 08:00 10/11/16 07:59 09/11/16 07:49 2,001 MG Oxycodone/ Acetaminophen (Percocet 5-325mg Tab) 1 tab Q4H PRN PO 09/10/16 18:45 09/24/16 18:44 Hydromorphone HCl (Dilaudid Inj) 0.5 mg Q3HWA PRN IV 09/10/16 18:45 09/24/16 18:44 09/11/16 08:26 0.5 MG Insulin Glargine (Lantus Solostar Pen) 10 unit HS SC 09/10/16 21:00 10/10/16 20:59 09/10/16 22:43 10 UNIT Insulin Aspart (novoLOG ASPART) SLIDING SCALE G... ACHS SC 09/10/16 21:00 10/10/16 20:59 09/11/16 08:40 4 UNITS Furosemide (Lasix Tab) 80 mg AMHS PO 09/10/16 21:00 10/10/16 18:44 09/11/16 07:49 80 MG Aspirin (Ecotrin Tab) 81 mg DAILY PO 09/11/16 08:00 10/11/16 08:59 09/11/16 07:51 81 MG Multivitamins (Folbee Plus Cz Tab) 1 tab MoWeFr@1600 PO 09/13/16 16:00 10/13/16 15:59 Glucose (Glucose 40% Gel) 15-30 GRAMS 15 GRAMS... UD PRN PO 09/10/16 20:30 10/10/16 20:29 Glucose (Glucose Chew Tab) 4-8 Tablets 4 Tabl... UD PRN PO 09/10/16 20:30 10/10/16 20:29 Dextrose (Dextrose 50% 50ML Syringe) 25-50ML OF 50% DW IV FOR... UD PRN IV 09/10/16 20:30 10/10/16 20:29 Glucagon (Glucagon Inj) 1 mg UD PRN SQ 09/10/16 20:30 10/10/16 20:29 Miscellaneous Information (Order Awaiting Action) 1 ea QS N/A 09/11/16 00:00 10/11/16 00:00 Levothyroxine Sodium (Synthroid Tab) 225 mcg DAILYBB PO 09/11/16 06:30 10/11/16 06:59 09/11/16 07:04 225 MCG Impression (1) End-stage renal disease on hemodialysis (2) Hypertension (3) Back pain (4) DM type 1 (diabetes mellitus, type 1) Arden Zayas is a 46-year-old male with end-stage renal disease on hemodialysis. Blood pressure, volume status and electrolytes are currently appropriate. P He is on dialysis Tuesday, Tuesday, Tuesday but missed treatment on Tuesday. Admitted with severe back pain however workup including MRI of lower back, abdomen pelvis CT scan as well as CTA chest was unremarkable. no explanation for the severe pain which patient still experiencing but getting relief with Dilaudid every 3 hours. Patient does have significant history of herniated disc however MRI reports that improvement from prior MRI which makes it difficult to explain his severe back pain. Recommendations -- plan for hemodialysis this morning with 4 K bath -- Renal diet -- avoid IV fluid -- Medications appropriate for renal function --continue on current antihypertensive medications and low-salt diet. --continue on phosphate binders with meals --although all imaging has been negative but patient continues to have severe pain. if patient continues to have pain may need ortho evaluation.
[2016-09-11] MEDS: FUROSEMIDE 40 MG TAB PO SCH (15:54)
--- NOTE | 2016-09-11 19:10 | Progress Note ---
Internal Med Progress Note Date of Service: Sep 11, 2016. Provider Documentation: SUBJECTIVE: s/p dialysis today still has significant back pain says Dilaudid only helping for short period of time had small bowel movement today afebrile no sob upset that still has pain OBJECTIVE: Vital Signs-as noted below Exam: General-alert and oriented. Not in distress. ENT-normal hearing Neck-no neck masses Lungs-cta b/l no wheezing or crackles Heart-s1 and s2 heard regular no murmurs Abdomen-soft bowel sounds present nontender no distension Extremities- no erythema no edema Neuro-alert and oriented moves extremities Lab data as noted below. ASSESSMENT & PLAN: : This is a 46-year-old male, who presents with severe back pain and constipation. 1. Severe low back pain. Radiating to the groin, but CAT scan was unremarkable. The patient's pain is somewhat improved with iv pain meds in Er.MRI no acute issues.Hx of lumbar laminectomy. But again having severe pain today continue current pain meds Will consult Orthopedics for further recommendations. 2. Constipation. We will place him on stool softeners.Moved bowels. 3. End-stage renal disease on hemodialysis, missed dialysis yesterday. Had dialysis today.. Nephrology consult. 4. Type 1 diabetes, on insulin pump. Holding insulin pump for now and place him on insulin sliding scale and Lantus. We will monitor blood sugar. 131/181/140/133. 5. Hypertension. Continue his home medications, amlodipine. We will monitor the blood pressure. 6. Gout, allopurinol. 7. Asthma. Continue his home medications. 8. Deep vein thrombosis prophylaxis, SCDs and TEDs. 9. Disposition: Observation on medical floor. Level 1 full code. Vital Signs: Date Time Temp Pulse Resp B/P (MAP) Pulse Ox O2 Delivery O2 Flow Rate FiO2 09/11/16 16:45 Room Air 09/11/16 15:55 36.5 65 20 145/80 (101) 100 09/11/16 15:41 36.8 71 150/69 (96) 09/11/16 15:25 68 119/62 09/11/16 15:15 72 121/59 09/11/16 15:00 63 116/64 09/11/16 14:45 61 108/75 09/11/16 14:30 61 122/63 09/11/16 14:15 61 116/73 09/11/16 14:00 65 124/68 09/11/16 13:45 68 119/71 09/11/16 13:30 64 125/75 09/11/16 13:15 59 119/74 09/11/16 13:00 62 114/70 09/11/16 12:45 65 119/68 09/11/16 12:30 68 128/75 09/11/16 12:15 65 139/79 09/11/16 12:00 60 135/68 09/11/16 11:45 53 151/90 09/11/16 11:30 36.4 60 134/58 (83) 09/11/16 08:45 Room Air 09/11/16 07:25 36.6 64 18 138/75 (96) 98 09/11/16 00:28 36.8 62 18 166/85 (112) 95 Room Air 09/11/16 00:00 Room Air 09/10/16 21:55 36.7 70 18 153/81 96 Room Air 09/10/16 19:50 81 16 131/92 96 Room Air Lab Results: Results Past 24 Hours Test 09/10/16 21:25 09/11/16 06:43 09/11/16 06:45 09/11/16 07:19 Range/Units Bedside Glucose 134 181 70-99 mg/dl White Blood Count 7.22 4.8-10.8 K/uL Red Blood Count 3.33 4.7-6.1 M/uL Hemoglobin 10.9 14.0-18.0 g/dL Hematocrit 32.5 42-52 % Mean Corpuscular Volume 97.6 80-100 fL Mean Corpuscular Hemoglobin 32.7 25-34 pg Mean Corpuscular Hemoglobin Concent 33.5 32-36 g/dl Platelet Count 146 130-400 K/uL Mean Platelet Volume 11.1 7.4-10.4 fL Neutrophils (%) (Auto) 70.0 % Lymphocytes (%) (Auto) 17.0 % Monocytes (%) (Auto) 9.1 % Eosinophils (%) (Auto) 2.9 % Basophils (%) (Auto) 0.3 % Neutrophils # (Auto) 5.05 1.4-6.5 K/uL Lymphocytes # (Auto) 1.23 1.2-3.4 K/uL Monocytes # (Auto) 0.66 0.11-0.59 K/uL Eosinophils # (Auto) 0.21 0-0.5 K/uL Basophils # (Auto) 0.02 0-0.2 K/uL RDW Standard Deviation 51.2 36.4-46.3 fL RDW Coefficient of Variation 14.4 11.5-14.5 % Immature Granulocyte % (Auto) 0.7 % Immature Granulocyte # (Auto) 0.05 0.00-0.02 K/uL Sodium Level 138 136-145 mmol/L Potassium Level 3.4 3.5-5.1 mmol/L Chloride Level 98 98-107 mmol/L Carbon Dioxide Level 26 21-32 mmol/L Anion Gap 14.0 3-11 mmol/L Blood Urea Nitrogen 61 7-18 mg/dl Creatinine 11.00 0.60-1.40 mg/dl Est Creatinine Clear Calc Drug Dose 8.3 ml/min Estimated GFR () 5.7 Estimated GFR (Non- 4.9 BUN/Creatinine Ratio 5.5 10-20 Random Glucose 176 70-99 mg/dl Calcium Level 8.1 8.5-10.1 mg/dl Magnesium Level 2.4 1.8-2.4 mg/dl Estimated Average Glucose 131 mg/dl Hemoglobin A1c 6.2 4.5-5.6 % Test 09/11/16 11:21 09/11/16 16:15 Range/Units Bedside Glucose 140 133 70-99 mg/dl Microbiology Results 09/10/16 MRSA DNA Surveillance Screen - Final, Complete Specimen Negative for MRSA by DNA Probe
[2016-09-11] MEDS: SIMVASTATIN 20 MG TAB PO SCH (20:51)
[2016-09-11] MEDS: MONTELUKAST SOD 10 MG TAB PO SCH (20:51)
[2016-09-11] MEDS: AMLODIPINE BESYLATE 5 MG TAB PO SCH (20:52)
[2016-09-11] MEDS: INSULIN GLARGINE SOLOSTAR 100 UNITS/ML 3 ML PEN SC SCH (22:11)
[2016-09-12 00:06] VITALS: BP 132/82; PULSE 68; TEMP 36.8; O2SAT 98
[2016-09-12] MEDS: HYDROmorphone INJ 0.5 MG/0.5 ML SYR IV PRN ×5 (00:07→23:23)
[2016-09-12] MEDS: LEVOTHYROXINE SODIUM TAB 200 MCG, LEVOTHYROXINE SODIUM TAB 25 MCG PO SCH ×2 (06:25)
[2016-09-12 06:54] LABS: BASO % 0.5 %; BASO ABS # 0.04 K/uL (0-0.2); COMPLETE YES; EOS % 3.7 %; HEMATOCRIT 37.1 % (42-52); IG% 0.7 %; LYMPH % 17.2 %; LYMPH ABS # 1.45 K/uL (1.2-3.4); MEAN CELL VOLUME 97.1 fL (80-100); MEAN CORPUSCULAR HEMOGLOBIN 33.2 pg (25-34); MEAN CORPUSCULAR HGB CONC 34.2 g/dl (32-36); MEAN PLATELET VOLUME 10.9 fL (7.4-10.4); MONO % 8.8 %; NEUT % 69.1 %; PLATELET COUNT 169 K/uL (130-400); RED BLOOD COUNT 3.82 M/uL (4.7-6.1); WHITE BLOOD COUNT 8.43 K/uL (4.8-10.8)
[2016-09-12 07:15] VITALS: BP 148/81; PULSE 63; TEMP 36.6; O2SAT 96
[2016-09-12 07:42] LABS: CREATININE 8.1 mg/dl (0.60-1.40)
[2016-09-12 07:43] LABS: BUN/CREATININE RATIO 5.1 (10-20); MAGNESIUM 2.4 mg/dl (1.8-2.4)
[2016-09-12 08:01] LABS: CALCIUM 8.9 mg/dl (8.5-10.1)
[2016-09-12 08:10] LABS: POTASSIUM 4.1 mmol/L (3.5-5.1)
[2016-09-12] MEDS: FUROSEMIDE 80 MG TAB PO SCH ×2 (08:36→20:45)
[2016-09-12] MEDS: MULTIVITAMIN TAB PO SCH (08:36)
[2016-09-12] MEDS: ALLOPURINOL 100 MG TAB PO SCH (08:36)
[2016-09-12] MEDS: CALCITRIOL 0.25 MCG CAP PO SCH (08:36)
[2016-09-12] MEDS: ASPIRIN 81 MG ECTAB PO SCH (08:36)
[2016-09-12] MEDS: CALCIUM ACETATE 667MG GELCAP PO SCH ×3 (08:50→16:56)
[2016-09-12] MEDS: INSULIN ASPART 100 UNITS/ML 3 ML PEN SC SCH ×4 (08:54→20:47)
[2016-09-12] MEDS: FUROSEMIDE 40 MG TAB PO SCH (11:35)
--- NOTE | 2016-09-12 11:46 | Nephrology Progress Note ---
Nephrology Progress Note Date of Service Sep 12, 2016. Chief Complaint Follow-up for end-stage renal disease on hemodialysis. Sayra Castro was seen and examined in his room this morning. He continues to have significant lower back pain specially with sitting and lying down however pain improves when he is standing or walking. Had dialysis yesterday, tolerated well , currently blood pressure volume status and electrolytes stable. Review of Systems A complete review of systems was performed. Pertinent positives are noted above. All other systems are negative. Vital Signs Last 8 Hrs Date Time Temp Pulse Resp B/P (MAP) Pulse Ox O2 Delivery O2 Flow Rate FiO2 09/12/16 08:45 Room Air 09/12/16 07:15 36.6 63 18 148/81 (103) 96 Last Recorded Weight Weight (Kilograms): 90.400 Physical Exam GENERAL: Middle-aged male, AAA x 3, pleasant, healthy-appearing, not in any distress. NECK: Supple, no JVD. RESPIRATORY: Normal breathing efforts, no accessory muscle use, clear to auscultation bilaterally, no wheezes or rales. CARDIOVASCULAR: S1, S2 normal, rate rhythm regular. EXTREMITY: trace bilateral lower extremity edema NEURO: speech fluent. PSYCHIATRY: Normal mood and judgment Family History Depression SISTER Diabetes mellitus MOTHER SISTER FH: cancer FATHER (lung CA) AUNT (breast CA) SISTER (melanoma) UNCLE (melanoma) Social History Smoking Status: Never smoker Drug Use: none Marital Status: Housing Status: lives with family Occupation: employed Laboratory Results Past 24 Hours 09/12/16 06:21 Red Blood Count 3.82, Mean Corpuscular Volume 97.1, Mean Corpuscular Hemoglobin 33.2, Mean Corpuscular Hemoglobin Concent 34.2, Mean Platelet Volume 10.9, Neutrophils (%) (Auto) 69.1, Lymphocytes (%) (Auto) 17.2, Monocytes (%) (Auto) 8.8, Eosinophils (%) (Auto) 3.7, Basophils (%) (Auto) 0.5, Neutrophils # (Auto) 5.83, Lymphocytes # (Auto) 1.45, Monocytes # (Auto) 0.74, Eosinophils # (Auto) 0.31, Basophils # (Auto) 0.04 09/12/16 06:21 Test 09/11/16 16:15 09/11/16 19:52 6/25/17 06:21 09/12/16 07:23 Bedside Glucose 133 mg/dl (70-99) 155 mg/dl (70-99) 109 mg/dl (70-99) White Blood Count 8.43 K/uL (4.8-10.8) Red Blood Count 3.82 M/uL (4.7-6.1) Hemoglobin 12.7 g/dL (14.0-18.0) Hematocrit 37.1 % (42-52) Mean Corpuscular Volume 97.1 fL (80-100) Mean Corpuscular Hemoglobin 33.2 pg (25-34) Mean Corpuscular Hemoglobin Concent 34.2 g/dl (32-36) Platelet Count 169 K/uL (130-400) Mean Platelet Volume 10.9 fL (7.4-10.4) Neutrophils (%) (Auto) 69.1 % Lymphocytes (%) (Auto) 17.2 % Monocytes (%) (Auto) 8.8 % Eosinophils (%) (Auto) 3.7 % Basophils (%) (Auto) 0.5 % Neutrophils # (Auto) 5.83 K/uL (1.4-6.5) Lymphocytes # (Auto) 1.45 K/uL (1.2-3.4) Monocytes # (Auto) 0.74 K/uL (0.11-0.59) Eosinophils # (Auto) 0.31 K/uL (0-0.5) Basophils # (Auto) 0.04 K/uL (0-0.2) RDW Standard Deviation 51.2 fL (36.4-46.3) RDW Coefficient of Variation 14.4 % (11.5-14.5) Immature Granulocyte % (Auto) 0.7 % Immature Granulocyte # (Auto) 0.06 K/uL (0.00-0.02) Anion Gap 9.0 mmol/L (3-11) Est Creatinine Clear Calc Drug Dose 11.1 ml/min Estimated GFR () 8.2 Estimated GFR (Non- 7.1 BUN/Creatinine Ratio 5.1 (10-20) Calcium Level 8.9 mg/dl (8.5-10.1) Magnesium Level 2.4 mg/dl (1.8-2.4) Allergies Coded Allergies: Milk (Verified Allergy, Unknown, 09/10/16) Cyclobenzaprine (Verified Adverse Reaction, Mild, FELT "AWFUL", 09/10/16) PT FELT AWFUL Medications Current Inpatient Medications Medications (Trade) Dose Ordered Sig/Rani Route Start Time Stop Time Status Last Admin Dose Admin Ioversol (Optiray 320) 100 ml UD PRN IV 09/10/16 16:15 09/14/16 16:14 Acetaminophen (Tylenol Tab) 650 mg Q4H PRN PO 09/10/16 18:45 10/10/16 18:44 Al Hydrox/Mg Hydrox/Simethicone (Maalox Max Susp) 15 ml Q4H PRN PO 09/10/16 18:45 10/10/16 18:44 Magnesium Hydroxide (Milk Of Magnesia Susp) 30 ml Q6H PRN PO 09/10/16 18:45 10/10/16 18:44 Polyethylene (Miralax Powder Packet) 17 gm DAILY PRN PO 09/10/16 19:30 10/10/16 19:29 Ondansetron HCl (Zofran Inj) 4 mg Q6H PRN IV 09/10/16 18:45 10/10/16 18:44 Albuterol (Ventolin Hfa Inhaler) 2 puffs Q6H PRN INH 09/10/16 18:45 10/10/16 18:44 Allopurinol (Zyloprim Tab) 200 mg DAILY PO 09/11/16 08:00 10/11/16 08:59 09/12/16 08:36 200 MG Amlodipine Besylate (Norvasc Tab) 5 mg HS PO 09/10/16 21:00 10/10/16 20:59 09/11/16 20:52 5 MG Calcitriol (Rocaltrol Cap) 0.25 mcg DAILY PO 09/11/16 08:00 10/11/16 08:59 09/12/16 08:36 0.25 MCG Furosemide (Lasix Tab) 40 mg DAILY@1200 PO 09/11/16 12:00 10/11/16 11:59 09/12/16 11:35 40 MG Montelukast Sodium (Singulair Tab) 10 mg HS PO 09/10/16 21:00 10/10/16 20:59 09/11/16 20:51 10 MG Multivitamins (Multivitamin Tab) 1 tab DAILY PO 09/11/16 08:00 10/11/16 08:59 09/12/16 08:36 1 TAB Simvastatin (Zocor Tab) 20 mg HS PO 09/10/16 21:00 10/10/16 20:59 09/11/16 20:51 20 MG Calcium Acetate (Phoslo Cap) 2,001 mg TIDM PO 09/11/16 08:00 10/11/16 07:59 09/12/16 11:35 2,001 MG Oxycodone/ Acetaminophen (Percocet 5-325mg Tab) 1 tab Q4H PRN PO 09/10/16 18:45 09/24/16 18:44 Hydromorphone HCl (Dilaudid Inj) 0.5 mg Q3HWA PRN IV 09/10/16 18:45 09/24/16 18:44 09/12/16 10:06 0.5 MG Insulin Glargine (Lantus Solostar Pen) 10 unit HS SC 09/10/16 21:00 10/10/16 20:59 09/11/16 22:11 10 UNIT Insulin Aspart (novoLOG ASPART) SLIDING SCALE G... ACHS SC 09/10/16 21:00 10/10/16 20:59 09/12/16 08:54 2 UNITS Furosemide (Lasix Tab) 80 mg AMHS PO 09/10/16 21:00 10/10/16 18:44 09/12/16 08:36 80 MG Aspirin (Ecotrin Tab) 81 mg DAILY PO 09/11/16 08:00 10/11/16 08:59 09/12/16 08:36 81 MG Multivitamins (Folbee Plus Cz Tab) 1 tab MoWeFr@1600 PO 09/13/16 16:00 10/13/16 15:59 Glucose (Glucose 40% Gel) 15-30 GRAMS 15 GRAMS... UD PRN PO 09/10/16 20:30 10/10/16 20:29 Glucose (Glucose Chew Tab) 4-8 Tablets 4 Tabl... UD PRN PO 09/10/16 20:30 10/10/16 20:29 Dextrose (Dextrose 50% 50ML Syringe) 25-50ML OF 50% DW IV FOR... UD PRN IV 6/23/17 20:30 10/10/16 20:29 Glucagon (Glucagon Inj) 1 mg UD PRN SQ 09/10/16 20:30 10/10/16 20:29 Miscellaneous Information (Order Awaiting Action) 1 ea QS N/A 09/11/16 00:00 10/11/16 00:00 Levothyroxine Sodium (Synthroid Tab) 225 mcg DAILYBB PO 09/11/16 06:30 10/11/16 06:59 09/12/16 06:25 225 MCG Impression (1) End-stage renal disease on hemodialysis (2) Hypertension (3) Back pain (4) DM type 1 (diabetes mellitus, type 1) Arden Zayas is a 46-year-old male with end-stage renal disease on hemodialysis. Blood pressure, volume status and electrolytes are currently appropriate. P He is on dialysis Tuesday, Tuesday, Tuesday but missed treatment on Tuesday. Admitted with severe back pain however workup including MRI of lower back, abdomen pelvis CT scan as well as CTA chest was unremarkable. no explanation for the severe pain which patient still experiencing but getting relief with Dilaudid every 3 hours. Patient does have significant history of herniated disc however MRI reports that improvement from prior MRI which makes it difficult to explain his severe back pain. Recommendations -- plan for hemodialysis tomorrow as his regular schedule. -- Renal diet -- avoid IV fluid -- Medications appropriate for renal function --continue on current antihypertensive medications and low-salt diet. --continue on phosphate binders with meals
--- NOTE | 2016-09-12 13:37 | ORTHOPEDIC CONSULTATION ---
DATE OF CONSULTATION: 09/12/2016 CHIEF COMPLAINT: Left-sided low back pain. HISTORY OF PRESENT ILLNESS: This is a 46-year-old male with significant history notable for end-stage renal disease, on dialysis, hypertension, GERD, obesity, type 1 diabetes, with a history of [address] Talbert. He states that a few days ago he had developed acute onset of left-sided low back pain when attempting to bend. 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 He denies radiation of pain in the lower extremities. He denies numbness, weakness or radicular symptomatology. He has no incontinence. He has no fevers. He was worked up for possible nephrolithiasis and this was negative on a CAT scan. He is currently admitted for pain control. PAST SURGICAL HISTORY: Cardiac cath, knee arthroscopy, cholecystectomy, lumbar laminectomy x2. PAST MEDICAL HISTORY: See above. ALLERGIES: FLEXERIL. MEDICATIONS: See EMR. FAMILY HISTORY: Noncontributory. SOCIAL HISTORY: The patient is employed. He is . He is a nonsmoker. REVIEW OF SYSTEMS: Is as above. He denies current chest pain, shortness of breath, but he does report some pain with deep inspiration in the left flank area. PHYSICAL EXAMINATION: The patient is slightly overweight male who has stable vital signs. He is comfortable lying supine in bed. He can sit up independently. He does have costovertebral angle tenderness in the left. He has no tenderness to palpation over the lumbosacral junction or the spinous processes. Previous midline scar is noted. He has no obvious spasm. He is nontender. Range of motion of both lower extremities and negative straight leg raise bilaterally. He has normal strength in mini motor testing of both lower extremities with intact sensation to light touch in all dermatomes. He has diminished DTRs of the patella, 1-2 beats of clonus at each ankle. There is no edema. He has palpable distal pulses. MRI of the lumbar spine showed disc degeneration L3-L4 and L4-L5. There is no significant disk herniation. There is no significant neural compression. Prior laminectomy changes are noted. He did have a CT of the chest done which ruled out PE and no evidence of nephrolithiasis was noted on the CT of the abdomen and pelvis. ASSESSMENT AND PLAN: The patient has modest degenerative changes in lumbar spine without any significant anatomic derangement. There is no obvious disk herniation that would account for his symptoms. The location and distribution of his back pain is not typical for lumbosacral pain, it is more consistent with a retroperitoneal process based upon the location; however, he may have some paraspinal spasm that is contributing to the ongoing symptoms. From an anatomic standpoint in regards to his lumbar spine there is nothing to be treated surgically. Options for treatment are somewhat limited given his diabetes and inability to tolerate steroids and the fact that he does not tolerate muscle relaxants. I recommend ongoing symptomatic management, consultation of PT for massage and other modalities and mobilize as tolerated. Currently, he has no active surgical issues. Thank you for the consultation.
[2016-09-12 14:40] VITALS: BP 133/86; PULSE 69; TEMP 36.5; O2SAT 98
[2016-09-12] MEDS: AMLODIPINE BESYLATE 5 MG TAB PO SCH (20:42)
[2016-09-12] MEDS: MONTELUKAST SOD 10 MG TAB PO SCH (20:43)
[2016-09-12] MEDS: SIMVASTATIN 20 MG TAB PO SCH (20:43)
[2016-09-12] MEDS: INSULIN GLARGINE SOLOSTAR 100 UNITS/ML 3 ML PEN SC SCH (22:14)
--- NOTE | 2016-09-12 22:17 | Progress Note ---
Medicine Progress Note Date & Time of Visit: Sep 12, 2016 . Subjective Persistent lumbar pain requiring parenteral analgesics. Worse when sitting, better with ambulation. No fever. Voiding one or twice a day- no dysuria or hematuria. No complaints of chest pain, SOB, nausea, vomiting. . Objective Last 8 Hrs Date Time Temp Pulse Resp B/P (MAP) Pulse Ox O2 Delivery O2 Flow Rate FiO2 09/12/16 16:45 Room Air 09/12/16 14:40 36.5 69 18 133/86 (102) 98 Physical Exam: General- uncomfortable Neck- no JVD Lungs- clear Heart- RRR Abdomen- + BS, soft, nontender Back- left lumbar paraspinal tenderness; no back pain with bilat SLR Extremities- no pretibial edema or calf tenderness Neuro- alert; motor strength lower extr 5/5 proximally + distally . Laboratory Results: Last 24 Hours Test 09/12/16 06:21 09/12/16 07:23 09/12/16 11:36 09/12/16 16:06 White Blood Count 8.43 K/uL Red Blood Count 3.82 M/uL Hemoglobin 12.7 g/dL Hematocrit 37.1 % Mean Corpuscular Volume 97.1 fL Mean Corpuscular Hemoglobin 33.2 pg Mean Corpuscular Hemoglobin Concent 34.2 g/dl Platelet Count 169 K/uL Mean Platelet Volume 10.9 fL Neutrophils (%) (Auto) 69.1 % Lymphocytes (%) (Auto) 17.2 % Monocytes (%) (Auto) 8.8 % Eosinophils (%) (Auto) 3.7 % Basophils (%) (Auto) 0.5 % Neutrophils # (Auto) 5.83 K/uL Lymphocytes # (Auto) 1.45 K/uL Monocytes # (Auto) 0.74 K/uL Eosinophils # (Auto) 0.31 K/uL Basophils # (Auto) 0.04 K/uL RDW Standard Deviation 51.2 fL RDW Coefficient of Variation 14.4 % Immature Granulocyte % (Auto) 0.7 % Immature Granulocyte # (Auto) 0.06 K/uL Sodium Level 137 mmol/L Potassium Level 4.1 mmol/L Chloride Level 99 mmol/L Carbon Dioxide Level 29 mmol/L Anion Gap 9.0 mmol/L Blood Urea Nitrogen 41 mg/dl Creatinine 8.10 mg/dl Est Creatinine Clear Calc Drug Dose 11.1 ml/min Estimated GFR () 8.2 Estimated GFR (Non- 7.1 BUN/Creatinine Ratio 5.1 Random Glucose 108 mg/dl Calcium Level 8.9 mg/dl Magnesium Level 2.4 mg/dl Bedside Glucose 109 mg/dl 223 mg/dl 124 mg/dl Test 09/12/16 19:59 09/12/16 22:08 Bedside Glucose 105 mg/dl 179 mg/dl Assessment & Plan LOW BACK PAIN No acute orthopedic or infectious process per imaging by CT or MRI. Seen by Ortho. No need for surgical intervention. Continue analgesics. PT. Increase activity as tolerated HYPERTENSION Continue amlodipine. ASTHMA Stable. CKD V ON HEMODIALYSIS Nephrology consulted for management. DM TYPE 1 Well-controlled. Hgb A1C = 6.2. FBS today = 109. Continue Lantus + NovoLog. VTE PROPHYLAXIS SCD's. Ambulate. DISPOSITION Expected discharge to home. Family Medicine follow-up with Dr. Sanchez. . Current Inpatient Medications: Current Inpatient Medications Medications (Trade) Dose Ordered Sig/Rani Route Start Time Stop Time Status Last Admin Dose Admin Ioversol (Optiray 320) 100 ml UD PRN IV 09/10/16 16:15 09/14/16 16:14 Acetaminophen (Tylenol Tab) 650 mg Q4H PRN PO 09/10/16 18:45 10/10/16 18:44 Al Hydrox/Mg Hydrox/Simethicone (Maalox Max Susp) 15 ml Q4H PRN PO 09/10/16 18:45 10/10/16 18:44 Magnesium Hydroxide (Milk Of Magnesia Susp) 30 ml Q6H PRN PO 09/10/16 18:45 10/10/16 18:44 Polyethylene (Miralax Powder Packet) 17 gm DAILY PRN PO 09/10/16 19:30 10/10/16 19:29 Ondansetron HCl (Zofran Inj) 4 mg Q6H PRN IV 09/10/16 18:45 10/10/16 18:44 Albuterol (Ventolin Hfa Inhaler) 2 puffs Q6H PRN INH 09/10/16 18:45 10/10/16 18:44 Allopurinol (Zyloprim Tab) 200 mg DAILY PO 09/11/16 08:00 10/11/16 08:59 09/12/16 08:36 200 MG Amlodipine Besylate (Norvasc Tab) 5 mg HS PO 09/10/16 21:00 10/10/16 20:59 09/12/16 20:42 5 MG Calcitriol (Rocaltrol Cap) 0.25 mcg DAILY PO 09/11/16 08:00 10/11/16 08:59 09/12/16 08:36 0.25 MCG Furosemide (Lasix Tab) 40 mg DAILY@1200 PO 09/11/16 12:00 10/11/16 11:59 09/12/16 11:35 40 MG Montelukast Sodium (Singulair Tab) 10 mg HS PO 09/10/16 21:00 10/10/16 20:59 09/12/16 20:43 10 MG Multivitamins (Multivitamin Tab) 1 tab DAILY PO 09/11/16 08:00 10/11/16 08:59 09/12/16 08:36 1 TAB Simvastatin (Zocor Tab) 20 mg HS PO 09/10/16 21:00 10/10/16 20:59 09/12/16 20:43 20 MG Calcium Acetate (Phoslo Cap) 2,001 mg TIDM PO 09/11/16 08:00 10/11/16 07:59 09/12/16 16:56 2,001 MG Oxycodone/ Acetaminophen (Percocet 5-325mg Tab) 1 tab Q4H PRN PO 09/10/16 18:45 09/24/16 18:44 Hydromorphone HCl (Dilaudid Inj) 0.5 mg Q3HWA PRN IV 09/10/16 18:45 09/24/16 18:44 09/12/16 14:25 0.5 MG Insulin Glargine (Lantus Solostar Pen) 10 unit HS SC 09/10/16 21:00 10/10/16 20:59 09/12/16 22:14 10 UNIT Insulin Aspart (novoLOG ASPART) SLIDING SCALE G... ACHS SC 09/10/16 21:00 10/10/16 20:59 09/12/16 17:40 5 UNITS Furosemide (Lasix Tab) 80 mg AMHS PO 09/10/16 21:00 10/10/16 18:44 09/12/16 20:45 80 MG Aspirin (Ecotrin Tab) 81 mg DAILY PO 09/11/16 08:00 10/11/16 08:59 09/12/16 08:36 81 MG Multivitamins (Folbee Plus Cz Tab) 1 tab MoWeFr@1600 PO 09/13/16 16:00 10/13/16 15:59 Glucose (Glucose 40% Gel) 15-30 GRAMS 15 GRAMS... UD PRN PO 09/10/16 20:30 10/10/16 20:29 Glucose (Glucose Chew Tab) 4-8 Tablets 4 Tabl... UD PRN PO 09/10/16 20:30 10/10/16 20:29 Dextrose (Dextrose 50% 50ML Syringe) 25-50ML OF 50% DW IV FOR... UD PRN IV 09/10/16 20:30 10/10/16 20:29 Glucagon (Glucagon Inj) 1 mg UD PRN SQ 09/10/16 20:30 10/10/16 20:29 Miscellaneous Information (Order Awaiting Action) 1 ea QS N/A 09/11/16 00:00 10/11/16 00:00 Levothyroxine Sodium (Synthroid Tab) 225 mcg DAILYBB PO 09/11/16 06:30 10/11/16 06:59 09/12/16 06:25 225 MCG
[2016-09-12 23:47] VITALS: BP 133/73; PULSE 64; TEMP 36.6; O2SAT 96
[2016-09-13] VITALS (22 sets, daily range): BP systolic 110–163; BP diastolic 70–89; PULSE 65–78; TEMP 36.6–36.7; O2SAT 96–99
[2016-09-13] MEDS: HYDROmorphone INJ 0.5 MG/0.5 ML SYR IV PRN ×2 (03:27→07:40)
[2016-09-13] MEDS: LEVOTHYROXINE SODIUM TAB 200 MCG, LEVOTHYROXINE SODIUM TAB 25 MCG PO SCH ×2 (06:15)
[2016-09-13 07:30] LABS: BASO % 0.4 %; BASO ABS # 0.03 K/uL (0-0.2); COMPLETE YES; EOS % 4.5 %; HEMATOCRIT 32.8 % (42-52); IG% 0.8 %; LYMPH % 20.1 %; LYMPH ABS # 1.53 K/uL (1.2-3.4); MEAN CELL VOLUME 94.5 fL (80-100); MEAN CORPUSCULAR HEMOGLOBIN 33.7 pg (25-34); MEAN CORPUSCULAR HGB CONC 35.7 g/dl (32-36); MEAN PLATELET VOLUME 10.8 fL (7.4-10.4); MONO % 7.3 %; NEUT % 66.9 %; PLATELET COUNT 162 K/uL (130-400); RED BLOOD COUNT 3.47 M/uL (4.7-6.1); WHITE BLOOD COUNT 7.62 K/uL (4.8-10.8)
[2016-09-13] MEDS: CALCIUM ACETATE 667MG GELCAP PO SCH ×3 (07:40→16:40)
[2016-09-13] MEDS: FUROSEMIDE 80 MG TAB PO SCH ×2 (07:40→20:52)
[2016-09-13] MEDS: CALCITRIOL 0.25 MCG CAP PO SCH (07:40)
[2016-09-13] MEDS: ALLOPURINOL 100 MG TAB PO SCH (07:40)
[2016-09-13] MEDS: MULTIVITAMIN TAB PO SCH (07:40)
[2016-09-13] MEDS: ASPIRIN 81 MG ECTAB PO SCH (07:41)
[2016-09-13 08:17] LABS: BUN/CREATININE RATIO 5.9 (10-20); CALCIUM 8.8 mg/dl (8.5-10.1); MAGNESIUM 2.5 mg/dl (1.8-2.4)
--- NOTE | 2016-09-13 08:24 | Clinical Documentation Query ---
CLINICAL DOCUMENTATION QUERY Dr. CHINCHILLA, In your clinical opinion is this patient being managed for: ( ) Post laminectomy syndrome causing low back pain ( x ) Degenerative disc disease causing low back pain ( ) Other explanation of clinical findings (Please Explain) ( ) Unable to determine (Please Define) ( ) Need to Discuss ( ) Not Agree The medical record reflects the following clinical findings, treatment, and risk factors. Clinical Indicators: 46 yo male presenting with L flank pain. MRI spine showed mild broad based bulging disc L3-L4 and L central bulging disc with mild narrowing of the neuroforamina bilaterally L4-L5 however both levels are diminished in prominence from Dec 2014 study. Treatment: IV dilaudid prn, percocet prn, Orthopedic consult, MRI spine Risk Factors: age, DM, hx of 2 lumbar laminectomies, obesity Please clarify and document your clinical opinion in the progress notes and discharge summary. Terms such as "probable", "suspected", "likely", "questionable", "possible", or "still to be ruled out" are acceptable. IF IN AGREEMENT, YOU MUST DOCUMENT ABOVE DIAGNOSTIC STATEMENT IN DAILY PROGRESS NOTES AND DISCHARGE SUMMARY. This document is not part of the patient's record. Thank You, Gisele Thorne RN [phone]
[2016-09-13] MEDS: INSULIN ASPART 100 UNITS/ML 3 ML PEN SC SCH ×4 (08:26→21:53)
--- NOTE | 2016-09-13 11:01 | Dialysis Progress Note ---
Hemodialysis Note Date of Service Sep 13, 2016. Chief Complaint Follow-up for end-stage renal disease on hemodialysis. Sayra Castro was seen and examined during dialysis. He has been tolerating dialysis well, denies any shortness of breath or chest pain. Blood pressure has been stable. Continues to have back pain specially when he sits up lie down but feels better with standing or walking. Review of Systems A complete review of systems was performed. Pertinent positives are noted above. All other systems are negative. Vital Signs Last 8 Hrs Date Time Temp Pulse Resp B/P (MAP) Pulse Ox O2 Delivery O2 Flow Rate FiO2 09/13/16 10:45 67 130/86 09/13/16 10:30 74 119/73 09/13/16 10:15 73 134/85 09/13/16 10:00 75 133/83 09/13/16 09:45 67 118/78 09/13/16 09:30 71 121/77 09/13/16 09:15 66 132/83 09/13/16 09:06 66 157/83 09/13/16 09:00 Room Air 09/13/16 07:33 36.7 67 20 134/84 (101) 96 Room Air Last Recorded Weight Weight (Kilograms): 91.600 Physical Exam GENERAL: Middle-aged male, AAA x 3, pleasant, healthy-appearing, not in any distress. NECK: Supple, no JVD. RESPIRATORY: Normal breathing efforts, no accessory muscle use, clear to auscultation bilaterally, no wheezes or rales. CARDIOVASCULAR: S1, S2 normal, rate rhythm regular. EXTREMITY: trace bilateral lower extremity edema NEURO: speech fluent. PSYCHIATRY: Normal mood and judgment Social History Smoking Status: Never smoker Drug Use: none Marital Status: Housing Status: lives with family Occupation: employed Laboratory Results Past 24 Hours 09/13/16 07:08 Red Blood Count 3.47, Mean Corpuscular Volume 94.5, Mean Corpuscular Hemoglobin 33.7, Mean Corpuscular Hemoglobin Concent 35.7, Mean Platelet Volume 10.8, Neutrophils (%) (Auto) 66.9, Lymphocytes (%) (Auto) 20.1, Monocytes (%) (Auto) 7.3, Eosinophils (%) (Auto) 4.5, Basophils (%) (Auto) 0.4, Neutrophils # (Auto) 5.10, Lymphocytes # (Auto) 1.53, Monocytes # (Auto) 0.56, Eosinophils # (Auto) 0.34, Basophils # (Auto) 0.03 09/13/16 07:08 Test 09/12/16 11:36 09/12/16 16:06 09/12/16 19:59 09/12/16 22:08 Bedside Glucose 223 mg/dl (70-99) 124 mg/dl (70-99) 105 mg/dl (70-99) 179 mg/dl (70-99) Test 09/13/16 07:08 09/13/16 07:38 White Blood Count 7.62 K/uL (4.8-10.8) Red Blood Count 3.47 M/uL (4.7-6.1) Hemoglobin 11.7 g/dL (14.0-18.0) Hematocrit 32.8 % (42-52) Mean Corpuscular Volume 94.5 fL (80-100) Mean Corpuscular Hemoglobin 33.7 pg (25-34) Mean Corpuscular Hemoglobin Concent 35.7 g/dl (32-36) Platelet Count 162 K/uL (130-400) Mean Platelet Volume 10.8 fL (7.4-10.4) Neutrophils (%) (Auto) 66.9 % Lymphocytes (%) (Auto) 20.1 % Monocytes (%) (Auto) 7.3 % Eosinophils (%) (Auto) 4.5 % Basophils (%) (Auto) 0.4 % Neutrophils # (Auto) 5.10 K/uL (1.4-6.5) Lymphocytes # (Auto) 1.53 K/uL (1.2-3.4) Monocytes # (Auto) 0.56 K/uL (0.11-0.59) Eosinophils # (Auto) 0.34 K/uL (0-0.5) Basophils # (Auto) 0.03 K/uL (0-0.2) RDW Standard Deviation 48.2 fL (36.4-46.3) RDW Coefficient of Variation 14.0 % (11.5-14.5) Immature Granulocyte % (Auto) 0.8 % Immature Granulocyte # (Auto) 0.06 K/uL (0.00-0.02) Anion Gap 13.0 mmol/L (3-11) Est Creatinine Clear Calc Drug Dose 8.2 ml/min Estimated GFR () 5.7 Estimated GFR (Non- 4.9 BUN/Creatinine Ratio 5.9 (10-20) Calcium Level 8.8 mg/dl (8.5-10.1) Magnesium Level 2.5 mg/dl (1.8-2.4) Bedside Glucose 133 mg/dl (70-99) Allergies Coded Allergies: Milk (Verified Allergy, Unknown, 09/10/16) Cyclobenzaprine (Verified Adverse Reaction, Mild, FELT "AWFUL", 09/10/16) PT FELT AWFUL Medications Current Inpatient Medications Medications (Trade) Dose Ordered Sig/Rani Route Start Time Stop Time Status Last Admin Dose Admin Ioversol (Optiray 320) 100 ml UD PRN IV 09/10/16 16:15 09/14/16 16:14 Acetaminophen (Tylenol Tab) 650 mg Q4H PRN PO 09/10/16 18:45 10/10/16 18:44 Al Hydrox/Mg Hydrox/Simethicone (Maalox Max Susp) 15 ml Q4H PRN PO 09/10/16 18:45 10/10/16 18:44 Magnesium Hydroxide (Milk Of Magnesia Susp) 30 ml Q6H PRN PO 09/10/16 18:45 10/10/16 18:44 Polyethylene (Miralax Powder Packet) 17 gm DAILY PRN PO 09/10/16 19:30 10/10/16 19:29 Ondansetron HCl (Zofran Inj) 4 mg Q6H PRN IV 09/10/16 18:45 10/10/16 18:44 09/13/16 00:21 4 MG Albuterol (Ventolin Hfa Inhaler) 2 puffs Q6H PRN INH 09/10/16 18:45 10/10/16 18:44 Allopurinol (Zyloprim Tab) 200 mg DAILY PO 09/11/16 08:00 10/11/16 08:59 09/13/16 07:40 200 MG Amlodipine Besylate (Norvasc Tab) 5 mg HS PO 09/10/16 21:00 10/10/16 20:59 09/12/16 20:42 5 MG Calcitriol (Rocaltrol Cap) 0.25 mcg DAILY PO 09/11/16 08:00 10/11/16 08:59 09/13/16 07:40 0.25 MCG Furosemide (Lasix Tab) 40 mg DAILY@1200 PO 09/11/16 12:00 10/11/16 11:59 09/12/16 11:35 40 MG Montelukast Sodium (Singulair Tab) 10 mg HS PO 09/10/16 21:00 10/10/16 20:59 09/12/16 20:43 10 MG Multivitamins (Multivitamin Tab) 1 tab DAILY PO 09/11/16 08:00 10/11/16 08:59 09/13/16 07:40 1 TAB Simvastatin (Zocor Tab) 20 mg HS PO 09/10/16 21:00 10/10/16 20:59 09/12/16 20:43 20 MG Calcium Acetate (Phoslo Cap) 2,001 mg TIDM PO 09/11/16 08:00 10/11/16 07:59 09/13/16 07:40 2,001 MG Oxycodone/ Acetaminophen (Percocet 5-325mg Tab) 1 tab Q4H PRN PO 09/10/16 18:45 09/24/16 18:44 Hydromorphone HCl (Dilaudid Inj) 0.5 mg Q3HWA PRN IV 09/10/16 18:45 09/24/16 18:44 09/13/16 07:40 0.5 MG Insulin Glargine (Lantus Solostar Pen) 10 unit HS SC 09/10/16 21:00 10/10/16 20:59 09/12/16 22:14 10 UNIT Insulin Aspart (novoLOG ASPART) SLIDING SCALE G... ACHS SC 09/10/16 21:00 10/10/16 20:59 09/13/16 08:26 6 UNITS Furosemide (Lasix Tab) 80 mg AMHS PO 09/10/16 21:00 10/10/16 18:44 09/13/16 07:40 80 MG Aspirin (Ecotrin Tab) 81 mg DAILY PO 09/11/16 08:00 10/11/16 08:59 09/13/16 07:41 81 MG Multivitamins (Folbee Plus Cz Tab) 1 tab MoWeFr@1600 PO 09/13/16 16:00 10/13/16 15:59 Glucose (Glucose 40% Gel) 15-30 GRAMS 15 GRAMS... UD PRN PO 09/10/16 20:30 10/10/16 20:29 Glucose (Glucose Chew Tab) 4-8 Tablets 4 Tabl... UD PRN PO 09/10/16 20:30 10/10/16 20:29 Dextrose (Dextrose 50% 50ML Syringe) 25-50ML OF 50% DW IV FOR... UD PRN IV 09/10/16 20:30 10/10/16 20:29 Glucagon (Glucagon Inj) 1 mg UD PRN SQ 09/10/16 20:30 10/10/16 20:29 Miscellaneous Information (Order Awaiting Action) 1 ea QS N/A 09/11/16 00:00 10/11/16 00:00 Levothyroxine Sodium (Synthroid Tab) 225 mcg DAILYBB PO 09/11/16 06:30 10/11/16 06:59 09/13/16 06:15 225 MCG Impression (1) End-stage renal disease on hemodialysis (2) Hypertension (3) Back pain (4) DM type 1 (diabetes mellitus, type 1) Arden Zayas is a 46-year-old male with end-stage renal disease on hemodialysis. Blood pressure, volume status and electrolytes are currently appropriate. P He is on dialysis Tuesday, Tuesday, Tuesday but missed treatment on Tuesday. Admitted with severe back pain however workup including MRI of lower back, abdomen pelvis CT scan as well as CTA chest was unremarkable. no explanation for the severe pain which patient still experiencing but getting relief with Dilaudid every 3 hours. Patient does have significant history of herniated disc however MRI reports that improvement from prior MRI which makes it difficult to explain his severe back pain. Recommendations -- currently getting dialysis with 2 K bath, tolerating well, denies any symptoms. --continues to have back pain but MRI unremarkable, may need physical therapy or ortho evaluation. -- Renal diet -- avoid IV fluid -- Medications appropriate for renal function --continue on current antihypertensive medications and low-salt diet. --continue on phosphate binders with meals
[2016-09-13] MEDS: FUROSEMIDE 40 MG TAB PO SCH (12:06)
[2016-09-13] MEDS: OXYCODONE/ACETAMINOPHEN 5-325 TAB PO PRN ×2 (13:18→23:26)
[2016-09-13] MEDS: FOLBEE PLUS CZ (DIATX) 1 TAB PO SCH (15:35)
[2016-09-13] MEDS ORDERED: POLYETHYLENE (MIRALAX) 17 GM PACK PO PRN (18:00)
[2016-09-13] MEDS: SIMVASTATIN 20 MG TAB PO SCH (20:53)
[2016-09-13] MEDS: AMLODIPINE BESYLATE 5 MG TAB PO SCH (20:53)
[2016-09-13] MEDS: MONTELUKAST SOD 10 MG TAB PO SCH (20:53)
[2016-09-13] MEDS: INSULIN GLARGINE SOLOSTAR 100 UNITS/ML 3 ML PEN SC SCH (21:54)
--- NOTE | 2016-09-13 22:23 | Progress Note ---
Medicine Progress Note Date & Time of Visit: Sep 13, 2016 at 17:00 . Subjective Persistent severe low back pain. No radiation. Hemodialysis performed today. . Objective Last 8 Hrs Date Time Temp Pulse Resp B/P (MAP) Pulse Ox O2 Delivery O2 Flow Rate FiO2 09/13/16 17:00 Room Air 09/13/16 15:40 36.6 78 16 116/70 (85) 98 Room Air Physical Exam: General- no acute distress Back- left lumbar paraspinal tenderness Neuro- alert . Laboratory Results: Last 24 Hours Test 09/13/16 07:08 09/13/16 07:38 09/13/16 11:28 09/13/16 16:18 White Blood Count 7.62 K/uL Red Blood Count 3.47 M/uL Hemoglobin 11.7 g/dL Hematocrit 32.8 % Mean Corpuscular Volume 94.5 fL Mean Corpuscular Hemoglobin 33.7 pg Mean Corpuscular Hemoglobin Concent 35.7 g/dl Platelet Count 162 K/uL Mean Platelet Volume 10.8 fL Neutrophils (%) (Auto) 66.9 % Lymphocytes (%) (Auto) 20.1 % Monocytes (%) (Auto) 7.3 % Eosinophils (%) (Auto) 4.5 % Basophils (%) (Auto) 0.4 % Neutrophils # (Auto) 5.10 K/uL Lymphocytes # (Auto) 1.53 K/uL Monocytes # (Auto) 0.56 K/uL Eosinophils # (Auto) 0.34 K/uL Basophils # (Auto) 0.03 K/uL RDW Standard Deviation 48.2 fL RDW Coefficient of Variation 14.0 % Immature Granulocyte % (Auto) 0.8 % Immature Granulocyte # (Auto) 0.06 K/uL Sodium Level 136 mmol/L Potassium Level 4.0 mmol/L Chloride Level 98 mmol/L Carbon Dioxide Level 25 mmol/L Anion Gap 13.0 mmol/L Blood Urea Nitrogen 65 mg/dl Creatinine 11.00 mg/dl Est Creatinine Clear Calc Drug Dose 8.2 ml/min Estimated GFR () 5.7 Estimated GFR (Non- 4.9 BUN/Creatinine Ratio 5.9 Random Glucose 133 mg/dl Calcium Level 8.8 mg/dl Magnesium Level 2.5 mg/dl Bedside Glucose 133 mg/dl 132 mg/dl 248 mg/dl Test 09/13/16 20:08 Bedside Glucose 144 mg/dl Assessment & Plan LOW BACK PAIN No acute orthopedic or infectious process per imaging by CT or MRI. Underlying degenerative disc disease. Seen by Ortho. No need for surgical intervention. Continue analgesics. PT. Increase activity as tolerated HYPERTENSION Continue amlodipine. ASTHMA Stable. CKD V ON HEMODIALYSIS Nephrology consulted for management. DM TYPE 1 Well-controlled. Hgb A1C = 6.2. FBS today = 133. Continue Lantus + NovoLog. VTE PROPHYLAXIS SCD's. Ambulate. DISPOSITION Expected discharge to home. Family Medicine follow-up with Dr. Sanchez. . Current Inpatient Medications: Current Inpatient Medications Medications (Trade) Dose Ordered Sig/Rani Route Start Time Stop Time Status Last Admin Dose Admin Ioversol (Optiray 320) 100 ml UD PRN IV 09/10/16 16:15 09/14/16 16:14 Acetaminophen (Tylenol Tab) 650 mg Q4H PRN PO 09/10/16 18:45 10/10/16 18:44 Al Hydrox/Mg Hydrox/Simethicone (Maalox Max Susp) 15 ml Q4H PRN PO 09/10/16 18:45 10/10/16 18:44 Polyethylene (Miralax Powder Packet) 17 gm DAILY PRN PO 09/10/16 19:30 10/10/16 19:29 Ondansetron HCl (Zofran Inj) 4 mg Q6H PRN IV 09/10/16 18:45 10/10/16 18:44 09/13/16 00:21 4 MG Albuterol (Ventolin Hfa Inhaler) 2 puffs Q6H PRN INH 09/10/16 18:45 10/10/16 18:44 Allopurinol (Zyloprim Tab) 200 mg DAILY PO 09/11/16 08:00 10/11/16 08:59 09/13/16 07:40 200 MG Amlodipine Besylate (Norvasc Tab) 5 mg HS PO 09/10/16 21:00 10/10/16 20:59 09/13/16 20:53 5 MG Calcitriol (Rocaltrol Cap) 0.25 mcg DAILY PO 09/11/16 08:00 10/11/16 08:59 09/13/16 07:40 0.25 MCG Furosemide (Lasix Tab) 40 mg DAILY@1200 PO 09/11/16 12:00 7/24/17 11:59 09/13/16 12:06 40 MG Montelukast Sodium (Singulair Tab) 10 mg HS PO 09/10/16 21:00 10/10/16 20:59 09/13/16 20:53 10 MG Multivitamins (Multivitamin Tab) 1 tab DAILY PO 09/11/16 08:00 10/11/16 08:59 09/13/16 07:40 1 TAB Simvastatin (Zocor Tab) 20 mg HS PO 09/10/16 21:00 10/10/16 20:59 09/13/16 20:53 20 MG Calcium Acetate (Phoslo Cap) 2,001 mg TIDM PO 09/11/16 08:00 10/11/16 07:59 09/13/16 16:40 2,001 MG Oxycodone/ Acetaminophen (Percocet 5-325mg Tab) 1 tab Q4H PRN PO 09/10/16 18:45 09/24/16 18:44 09/13/16 13:18 1 TAB Hydromorphone HCl (Dilaudid Inj) 0.5 mg Q3HWA PRN IV 09/10/16 18:45 09/24/16 18:44 09/13/16 07:40 0.5 MG Insulin Glargine (Lantus Solostar Pen) 10 unit HS SC 09/10/16 21:00 10/10/16 20:59 09/13/16 21:54 10 UNIT Insulin Aspart (novoLOG ASPART) SLIDING SCALE G... ACHS SC 09/10/16 21:00 10/10/16 20:59 09/13/16 21:53 1 UNITS Furosemide (Lasix Tab) 80 mg AMHS PO 09/10/16 21:00 10/10/16 18:44 09/13/16 20:52 80 MG Aspirin (Ecotrin Tab) 81 mg DAILY PO 09/11/16 08:00 10/11/16 08:59 09/13/16 07:41 81 MG Multivitamins (Folbee Plus Cz Tab) 1 tab MoWeFr@1600 PO 09/13/16 16:00 10/13/16 15:59 09/13/16 15:35 1 TAB Glucose (Glucose 40% Gel) 15-30 GRAMS 15 GRAMS... UD PRN PO 09/10/16 20:30 10/10/16 20:29 Glucose (Glucose Chew Tab) 4-8 Tablets 4 Tabl... UD PRN PO 09/10/16 20:30 10/10/16 20:29 Dextrose (Dextrose 50% 50ML Syringe) 25-50ML OF 50% DW IV FOR... UD PRN IV 09/10/16 20:30 10/10/16 20:29 Glucagon (Glucagon Inj) 1 mg UD PRN SQ 09/10/16 20:30 10/10/16 20:29 Miscellaneous Information (Order Awaiting Action) 1 ea QS N/A 09/11/16 00:00 10/11/16 00:00 Levothyroxine Sodium (Synthroid Tab) 225 mcg DAILYBB PO 09/11/16 06:30 10/11/16 06:59 09/13/16 06:15 225 MCG Polyethylene (Miralax Powder Packet) 17 gm BID PRN PO 09/13/16 18:00 10/13/16 17:59
[2016-09-14] MEDS: HYDROmorphone INJ 0.5 MG/0.5 ML SYR IV PRN ×2 (02:04→23:46)
[2016-09-14] MEDS: LEVOTHYROXINE SODIUM TAB 200 MCG, LEVOTHYROXINE SODIUM TAB 25 MCG PO SCH ×2 (05:48)
[2016-09-14 08:06] VITALS: BP 129/84; PULSE 60; TEMP 36.4; O2SAT 96
[2016-09-14] MEDS: MULTIVITAMIN TAB PO SCH (08:09)
[2016-09-14] MEDS: CALCIUM ACETATE 667MG GELCAP PO SCH ×3 (08:09→17:27)
[2016-09-14] MEDS: ALLOPURINOL 100 MG TAB PO SCH (08:11)
[2016-09-14] MEDS: CALCITRIOL 0.25 MCG CAP PO SCH (08:11)
[2016-09-14] MEDS: FUROSEMIDE 80 MG TAB PO SCH ×2 (08:11→20:31)
[2016-09-14] MEDS: ASPIRIN 81 MG ECTAB PO SCH (08:12)
[2016-09-14] MEDS: INSULIN ASPART 100 UNITS/ML 3 ML PEN SC SCH ×4 (08:59→20:37)
[2016-09-14] MEDS: OXYCODONE/ACETAMINOPHEN 5-325 TAB PO PRN ×2 (09:07→23:52)
--- NOTE | 2016-09-14 10:25 | Nephrology Progress Note ---
Nephrology Progress Note Date of Service Sep 14, 2016. Chief Complaint Follow-up for end-stage renal disease on hemodialysis. Sayra Berrios was seen and examined in his room this morning. He was sitting in bed otherwise feeling well. He still has the pain in his lower back specially with prolong sitting and lying down however the intensity of the pain and requirement for pain medications seems to have a decreased. had dialysis yesterday, tolerated well, currently blood pressure volume status and electrolyte acceptable. Review of Systems A complete review of systems was performed. Pertinent positives are noted above. All other systems are negative. Vital Signs Last 8 Hrs Date Time Temp Pulse Resp B/P (MAP) Pulse Ox O2 Delivery O2 Flow Rate FiO2 09/14/16 08:06 36.4 60 18 129/84 (99) 96 Room Air Last Recorded Weight Weight (Kilograms): 92.300 Physical Exam GENERAL: Middle-aged male, AAA x 3, pleasant, healthy-appearing, not in any distress. NECK: Supple, no JVD. RESPIRATORY: Normal breathing efforts, no accessory muscle use, clear to auscultation bilaterally, no wheezes or rales. CARDIOVASCULAR: S1, S2 normal, rate rhythm regular. EXTREMITY: trace bilateral lower extremity edema NEURO: speech fluent. PSYCHIATRY: Normal mood and judgment Family History Depression SISTER Diabetes mellitus MOTHER SISTER FH: cancer FATHER (lung CA) AUNT (breast CA) SISTER (melanoma) UNCLE (melanoma) Social History Smoking Status: Never smoker Drug Use: none Marital Status: Housing Status: lives with family Occupation: employed Laboratory Results Past 24 Hours Test 09/13/16 11:28 09/13/16 16:18 09/13/16 20:08 09/14/16 07:54 Bedside Glucose 132 mg/dl (70-99) 248 mg/dl (70-99) 144 mg/dl (70-99) 136 mg/dl (70-99) Allergies Coded Allergies: Milk (Verified Allergy, Unknown, 09/10/16) Cyclobenzaprine (Verified Adverse Reaction, Mild, FELT "AWFUL", 09/10/16) PT FELT AWFUL Medications Current Inpatient Medications Medications (Trade) Dose Ordered Sig/Rani Route Start Time Stop Time Status Last Admin Dose Admin Ioversol (Optiray 320) 100 ml UD PRN IV 09/10/16 16:15 09/14/16 16:14 Acetaminophen (Tylenol Tab) 650 mg Q4H PRN PO 09/10/16 18:45 10/10/16 18:44 Al Hydrox/Mg Hydrox/Simethicone (Maalox Max Susp) 15 ml Q4H PRN PO 09/10/16 18:45 10/10/16 18:44 Polyethylene (Miralax Powder Packet) 17 gm DAILY PRN PO 09/10/16 19:30 10/10/16 19:29 Ondansetron HCl (Zofran Inj) 4 mg Q6H PRN IV 09/10/16 18:45 10/10/16 18:44 09/13/16 00:21 4 MG Albuterol (Ventolin Hfa Inhaler) 2 puffs Q6H PRN INH 09/10/16 18:45 10/10/16 18:44 Allopurinol (Zyloprim Tab) 200 mg DAILY PO 09/11/16 08:00 10/11/16 08:59 09/14/16 08:11 200 MG Amlodipine Besylate (Norvasc Tab) 5 mg HS PO 09/10/16 21:00 10/10/16 20:59 09/13/16 20:53 5 MG Calcitriol (Rocaltrol Cap) 0.25 mcg DAILY PO 09/11/16 08:00 10/11/16 08:59 09/14/16 08:11 0.25 MCG Furosemide (Lasix Tab) 40 mg DAILY@1200 PO 09/11/16 12:00 10/11/16 11:59 09/13/16 12:06 40 MG Montelukast Sodium (Singulair Tab) 10 mg HS PO 09/10/16 21:00 10/10/16 20:59 09/13/16 20:53 10 MG Multivitamins (Multivitamin Tab) 1 tab DAILY PO 09/11/16 08:00 10/11/16 08:59 09/14/16 08:09 1 TAB Simvastatin (Zocor Tab) 20 mg HS PO 09/10/16 21:00 10/10/16 20:59 09/13/16 20:53 20 MG Calcium Acetate (Phoslo Cap) 2,001 mg TIDM PO 09/11/16 08:00 10/11/16 07:59 09/14/16 08:09 2,001 MG Oxycodone/ Acetaminophen (Percocet 5-325mg Tab) 1 tab Q4H PRN PO 09/10/16 18:45 09/24/16 18:44 09/14/16 09:07 1 TAB Hydromorphone HCl (Dilaudid Inj) 0.5 mg Q3HWA PRN IV 09/10/16 18:45 09/24/16 18:44 09/14/16 02:04 0.5 MG Insulin Glargine (Lantus Solostar Pen) 10 unit HS SC 09/10/16 21:00 10/10/16 20:59 09/13/16 21:54 10 UNIT Insulin Aspart (novoLOG ASPART) SLIDING SCALE G... ACHS SC 09/10/16 21:00 10/10/16 20:59 09/14/16 08:59 6 UNITS Furosemide (Lasix Tab) 80 mg AMHS PO 09/10/16 21:00 10/10/16 18:44 09/14/16 08:11 80 MG Aspirin (Ecotrin Tab) 81 mg DAILY PO 09/11/16 08:00 10/11/16 08:59 09/14/16 08:12 81 MG Multivitamins (Folbee Plus Cz Tab) 1 tab MoWeFr@1600 PO 09/13/16 16:00 10/13/16 15:59 09/13/16 15:35 1 TAB Glucose (Glucose 40% Gel) 15-30 GRAMS 15 GRAMS... UD PRN PO 09/10/16 20:30 10/10/16 20:29 Glucose (Glucose Chew Tab) 4-8 Tablets 4 Tabl... UD PRN PO 09/10/16 20:30 10/10/16 20:29 Dextrose (Dextrose 50% 50ML Syringe) 25-50ML OF 50% DW IV FOR... UD PRN IV 09/10/16 20:30 10/10/16 20:29 Glucagon (Glucagon Inj) 1 mg UD PRN SQ 09/10/16 20:30 10/10/16 20:29 Miscellaneous Information (Order Awaiting Action) 1 ea QS N/A 09/11/16 00:00 10/11/16 00:00 Levothyroxine Sodium (Synthroid Tab) 225 mcg DAILYBB PO 09/11/16 06:30 10/11/16 06:59 09/14/16 05:48 225 MCG Polyethylene (Miralax Powder Packet) 17 gm BID PRN PO 09/13/16 18:00 10/13/16 17:59 09/14/16 08:16 17 GM Impression (1) End-stage renal disease on hemodialysis (2) Hypertension (3) Back pain (4) DM type 1 (diabetes mellitus, type 1) Arden Zayas is a 46-year-old male with end-stage renal disease on hemodialysis. Blood pressure, volume status and electrolytes are currently appropriate. P He is on dialysis Tuesday, Tuesday, Tuesday but missed treatment on Tuesday. Admitted with severe back pain however workup including MRI of lower back, abdomen pelvis CT scan as well as CTA chest was unremarkable. no explanation for the severe pain which patient still experiencing but getting relief with Dilaudid every 3 hours. Patient does have significant history of herniated disc however MRI reports that improvement from prior MRI which makes it difficult to explain his severe back pain. Recommendations -- currently otherwise doing well of some volume status and electrolyte acceptable, next dialysis tomorrow. -- Renal diet -- avoid IV fluid -- Medications appropriate for renal function --continue on current antihypertensive medications and low-salt diet. --continue on phosphate binders with meals -- evaluated by Ortho, recommended physical therapy, patient is waiting on the 1st physical therapy session.
[2016-09-14] MEDS: FUROSEMIDE 40 MG TAB PO SCH (12:24)
[2016-09-14 15:30] VITALS: BP 129/81; PULSE 67; TEMP 36.5; O2SAT 99
[2016-09-14] MEDS ORDERED: BISACODYL 5 MG TABEC PO ONE (19:00)
[2016-09-14] MEDS: MONTELUKAST SOD 10 MG TAB PO SCH (20:31)
[2016-09-14] MEDS: AMLODIPINE BESYLATE 5 MG TAB PO SCH (20:32)
[2016-09-14] MEDS: SIMVASTATIN 20 MG TAB PO SCH (20:32)
[2016-09-14] MEDS: INSULIN GLARGINE SOLOSTAR 100 UNITS/ML 3 ML PEN SC SCH (20:34)
[2016-09-14] MEDS: POLYETHYLENE (MIRALAX) 17 GM PACK PO SCH (20:37)
--- NOTE | 2016-09-14 23:21 | Progress Note ---
Medicine Progress Note Date & Time of Visit: Sep 14, 2016 at 14:10 . Subjective Persistent low back pain. Using Percocet PRN. Worked with PT and OT today. No bowel movement for about 5 days. . Objective Last 8 Hrs Date Time Temp Pulse Resp B/P (MAP) Pulse Ox O2 Delivery O2 Flow Rate FiO2 09/14/16 16:00 Room Air 09/14/16 15:30 36.5 67 16 129/81 (97) 99 Room Air Physical Exam: General- no acute distress Lungs- clear Heart- regular Abd- normal bowel sounds, soft, nontender Back- left lumbar paraspinal tenderness Extr- no pretibial edema or Tenderness Neuro- alert . Laboratory Results: Last 24 Hours Test 09/14/16 07:54 09/14/16 11:21 09/14/16 16:34 09/14/16 20:30 Bedside Glucose 136 mg/dl 195 mg/dl 99 mg/dl 118 mg/dl Assessment & Plan LOW BACK PAIN No acute orthopedic or infectious process per imaging by CT or MRI. Underlying degenerative disc disease. Seen by Ortho. No need for surgical intervention. Continue analgesics. PT, OT. Increase activity as tolerated HYPERTENSION Continue amlodipine. ASTHMA Stable. CKD V ON HEMODIALYSIS Nephrology consulted for management. DM TYPE 1 Well-controlled. Hgb A1C = 6.2. FBS today = 136. Continue Lantus + NovoLog. CONSTIPATION Bowel regimen as ordered. VTE PROPHYLAXIS SCD's. Ambulate. DISPOSITION Expected discharge to home. Family Medicine follow-up with Dr. Sanchez. . Current Inpatient Medications: Current Inpatient Medications Medications (Trade) Dose Ordered Sig/Rani Route Start Time Stop Time Status Last Admin Dose Admin Acetaminophen (Tylenol Tab) 650 mg Q4H PRN PO 09/10/16 18:45 10/10/16 18:44 Al Hydrox/Mg Hydrox/Simethicone (Maalox Max Susp) 15 ml Q4H PRN PO 09/10/16 18:45 10/10/16 18:44 Polyethylene (Miralax Powder Packet) 17 gm DAILY PRN PO 09/10/16 19:30 10/10/16 19:29 Ondansetron HCl (Zofran Inj) 4 mg Q6H PRN IV 09/10/16 18:45 10/10/16 18:44 09/13/16 00:21 4 MG Albuterol (Ventolin Hfa Inhaler) 2 puffs Q6H PRN INH 09/10/16 18:45 10/10/16 18:44 Allopurinol (Zyloprim Tab) 200 mg DAILY PO 09/11/16 08:00 10/11/16 08:59 09/14/16 08:11 200 MG Amlodipine Besylate (Norvasc Tab) 5 mg HS PO 09/10/16 21:00 10/10/16 20:59 09/14/16 20:32 5 MG Calcitriol (Rocaltrol Cap) 0.25 mcg DAILY PO 09/11/16 08:00 10/11/16 08:59 09/14/16 08:11 0.25 MCG Furosemide (Lasix Tab) 40 mg DAILY@1200 PO 09/11/16 12:00 10/11/16 11:59 09/14/16 12:24 40 MG Montelukast Sodium (Singulair Tab) 10 mg HS PO 09/10/16 21:00 10/10/16 20:59 09/14/16 20:31 10 MG Multivitamins (Multivitamin Tab) 1 tab DAILY PO 09/11/16 08:00 10/11/16 08:59 09/14/16 08:09 1 TAB Simvastatin (Zocor Tab) 20 mg HS PO 09/10/16 21:00 10/10/16 20:59 09/14/16 20:32 20 MG Calcium Acetate (Phoslo Cap) 2,001 mg TIDM PO 09/11/16 08:00 10/11/16 07:59 09/14/16 17:27 2,001 MG Oxycodone/ Acetaminophen (Percocet 5-325mg Tab) 1 tab Q4H PRN PO 09/10/16 18:45 09/24/16 18:44 09/14/16 09:07 1 TAB Hydromorphone HCl (Dilaudid Inj) 0.5 mg Q3HWA PRN IV 09/10/16 18:45 09/24/16 18:44 09/14/16 02:04 0.5 MG Insulin Glargine (Lantus Solostar Pen) 10 unit HS SC 09/10/16 21:00 10/10/16 20:59 09/14/16 20:34 10 UNIT Insulin Aspart (novoLOG ASPART) SLIDING SCALE G... ACHS SC 09/10/16 21:00 10/10/16 20:59 09/14/16 18:07 7 UNITS Furosemide (Lasix Tab) 80 mg AMHS PO 09/10/16 21:00 10/10/16 18:44 09/14/16 20:31 80 MG Aspirin (Ecotrin Tab) 81 mg DAILY PO 09/11/16 08:00 10/11/16 08:59 09/14/16 08:12 81 MG Multivitamins (Folbee Plus Cz Tab) 1 tab MoWeFr@1600 PO 09/13/16 16:00 10/13/16 15:59 09/13/16 15:35 1 TAB Glucose (Glucose 40% Gel) 15-30 GRAMS 15 GRAMS... UD PRN PO 09/10/16 20:30 10/10/16 20:29 Glucose (Glucose Chew Tab) 4-8 Tablets 4 Tabl... UD PRN PO 09/10/16 20:30 10/10/16 20:29 Dextrose (Dextrose 50% 50ML Syringe) 25-50ML OF 50% DW IV FOR... UD PRN IV 09/10/16 20:30 10/10/16 20:29 Glucagon (Glucagon Inj) 1 mg UD PRN SQ 09/10/16 20:30 10/10/16 20:29 Miscellaneous Information (Order Awaiting Action) 1 ea QS N/A 09/11/16 00:00 10/11/16 00:00 Levothyroxine Sodium (Synthroid Tab) 225 mcg DAILYBB PO 09/11/16 06:30 10/11/16 06:59 09/14/16 05:48 225 MCG Polyethylene (Miralax Powder Packet) 17 gm BID PO 09/14/16 20:00 10/13/16 17:59 09/14/16 20:37 17 GM
[2016-09-14] MEDS ORDERED: TRAMADOL HCL 50 MG TAB PO PRN (23:30)
[2016-09-14 23:43] VITALS: BP 150/96; PULSE 66; TEMP 36.7; O2SAT 98
[2016-09-15] VITALS (21 sets, daily range): BP systolic 99–163; BP diastolic 69–96; PULSE 59–71; TEMP 36.5–36.7; O2SAT 98
[2016-09-15] MEDS: HYDROmorphone INJ 0.5 MG/0.5 ML SYR IV PRN (03:58)
[2016-09-15] MEDS: LEVOTHYROXINE SODIUM TAB 200 MCG, LEVOTHYROXINE SODIUM TAB 25 MCG PO SCH ×2 (06:42)
[2016-09-15] MEDS: CALCITRIOL 0.25 MCG CAP PO SCH (07:19)
[2016-09-15] MEDS: CALCIUM ACETATE 667MG GELCAP PO SCH ×4 (07:19→20:56)
[2016-09-15] MEDS: INSULIN ASPART 100 UNITS/ML 3 ML PEN SC SCH ×4 (07:30→21:04)
[2016-09-15] MEDS: FUROSEMIDE 80 MG TAB PO SCH ×2 (08:00→20:59)
--- NOTE | 2016-09-15 11:34 | Dialysis Progress Note ---
Hemodialysis Note Date of Service Sep 15, 2016. Chief Complaint Follow-up for end-stage renal disease on hemodialysis. Sayra Castro was seen and examined during dialysis. He has been tolerating dialysis well, denies any shortness of breath or chest pain. Blood pressure has been stable. Continues to have back pain specially when he sits up or lie down but seems to be improving, getting PT since yesterday and this morning felt better than before. Review of Systems A complete review of systems was performed. Pertinent positives are noted above. All other systems are negative. Vital Signs Last 8 Hrs Date Time Temp Pulse Resp B/P (MAP) Pulse Ox O2 Delivery O2 Flow Rate FiO2 09/15/16 11:15 64 114/72 09/15/16 11:00 59 109/69 09/15/16 10:45 61 130/78 09/15/16 10:35 Room Air 09/15/16 10:30 62 125/75 09/15/16 10:15 64 136/86 09/15/16 10:00 64 133/77 09/15/16 09:45 60 117/74 09/15/16 09:30 68 131/73 09/15/16 09:15 61 125/72 09/15/16 09:00 65 148/82 09/15/16 08:54 67 133/77 09/15/16 08:40 36.7 71 148/83 (104) 09/15/16 07:56 36.5 68 18 163/96 (118) 98 Room Air Last Recorded Weight Weight (Kilograms): 95.000 Physical Exam GENERAL: Middle-aged male, AAA x 3, pleasant, healthy-appearing, not in any distress. NECK: Supple, no JVD. RESPIRATORY: Normal breathing efforts, no accessory muscle use, clear to auscultation bilaterally, no wheezes or rales. CARDIOVASCULAR: S1, S2 normal, rate rhythm regular. EXTREMITY: trace bilateral lower extremity edema NEURO: speech fluent. PSYCHIATRY: Normal mood and judgment Social History Smoking Status: Never smoker Drug Use: none Marital Status: Housing Status: lives with family Occupation: employed Laboratory Results Past 24 Hours Test 09/14/16 16:34 09/14/16 20:30 09/15/16 07:27 Bedside Glucose 99 mg/dl (70-99) 118 mg/dl (70-99) 138 mg/dl (70-99) Allergies Coded Allergies: Milk (Verified Allergy, Unknown, 09/10/16) Cyclobenzaprine (Verified Adverse Reaction, Mild, FELT "AWFUL", 09/10/16) PT FELT AWFUL Medications Current Inpatient Medications Medications (Trade) Dose Ordered Sig/Rani Route Start Time Stop Time Status Last Admin Dose Admin Acetaminophen (Tylenol Tab) 650 mg Q4H PRN PO 09/10/16 18:45 10/10/16 18:44 Al Hydrox/Mg Hydrox/Simethicone (Maalox Max Susp) 15 ml Q4H PRN PO 09/10/16 18:45 10/10/16 18:44 Polyethylene (Miralax Powder Packet) 17 gm DAILY PRN PO 09/10/16 19:30 10/10/16 19:29 Ondansetron HCl (Zofran Inj) 4 mg Q6H PRN IV 09/10/16 18:45 10/10/16 18:44 09/13/16 00:21 4 MG Albuterol (Ventolin Hfa Inhaler) 2 puffs Q6H PRN INH 09/10/16 18:45 10/10/16 18:44 Allopurinol (Zyloprim Tab) 200 mg DAILY PO 09/11/16 08:00 10/11/16 08:59 09/14/16 08:11 200 MG Amlodipine Besylate (Norvasc Tab) 5 mg HS PO 09/10/16 21:00 10/10/16 20:59 09/14/16 20:32 5 MG Calcitriol (Rocaltrol Cap) 0.25 mcg DAILY PO 09/11/16 08:00 10/11/16 08:59 09/15/16 07:19 0.25 MCG Furosemide (Lasix Tab) 40 mg DAILY@1200 PO 09/11/16 12:00 10/11/16 11:59 09/14/16 12:24 40 MG Montelukast Sodium (Singulair Tab) 10 mg HS PO 09/10/16 21:00 10/10/16 20:59 09/14/16 20:31 10 MG Multivitamins (Multivitamin Tab) 1 tab DAILY PO 09/11/16 08:00 10/11/16 08:59 09/14/16 08:09 1 TAB Simvastatin (Zocor Tab) 20 mg HS PO 09/10/16 21:00 10/10/16 20:59 09/14/16 20:32 20 MG Calcium Acetate (Phoslo Cap) 2,001 mg TIDM PO 09/11/16 08:00 10/11/16 07:59 09/15/16 07:19 2,001 MG Oxycodone/ Acetaminophen (Percocet 5-325mg Tab) 1 tab Q4H PRN PO 09/10/16 18:45 09/24/16 18:44 09/14/16 23:52 1 TAB Hydromorphone HCl (Dilaudid Inj) 0.5 mg Q3HWA PRN IV 09/10/16 18:45 09/24/16 18:44 09/15/16 03:58 0.5 MG Insulin Glargine (Lantus Solostar Pen) 10 unit HS SC 09/10/16 21:00 10/10/16 20:59 09/14/16 20:34 10 UNIT Insulin Aspart (novoLOG ASPART) SLIDING SCALE G... ACHS SC 09/10/16 21:00 10/10/16 20:59 09/15/16 07:30 6 UNITS Furosemide (Lasix Tab) 80 mg AMHS PO 09/10/16 21:00 10/10/16 18:44 09/14/16 20:31 80 MG Aspirin (Ecotrin Tab) 81 mg DAILY PO 09/11/16 08:00 10/11/16 08:59 09/14/16 08:12 81 MG Multivitamins (Folbee Plus Cz Tab) 1 tab MoWeFr@1600 PO 09/13/16 16:00 10/13/16 15:59 09/13/16 15:35 1 TAB Glucose (Glucose 40% Gel) 15-30 GRAMS 15 GRAMS... UD PRN PO 09/10/16 20:30 10/10/16 20:29 Glucose (Glucose Chew Tab) 4-8 Tablets 4 Tabl... UD PRN PO 09/10/16 20:30 10/10/16 20:29 Dextrose (Dextrose 50% 50ML Syringe) 25-50ML OF 50% DW IV FOR... UD PRN IV 09/10/16 20:30 10/10/16 20:29 Glucagon (Glucagon Inj) 1 mg UD PRN SQ 6/23/17 20:30 10/10/16 20:29 Miscellaneous Information (Order Awaiting Action) 1 ea QS N/A 09/11/16 00:00 10/11/16 00:00 Levothyroxine Sodium (Synthroid Tab) 225 mcg DAILYBB PO 09/11/16 06:30 10/11/16 06:59 09/15/16 06:42 225 MCG Polyethylene (Miralax Powder Packet) 17 gm BID PO 09/14/16 20:00 10/13/16 17:59 09/14/16 20:37 17 GM Tramadol HCl (Ultram Tab) 50 mg Q8H PRN PO 09/14/16 23:30 10/14/16 23:29 09/15/16 10:25 50 MG Impression (1) End-stage renal disease on hemodialysis (2) Hypertension (3) Back pain (4) DM type 1 (diabetes mellitus, type 1) Arden Zayas is a 46-year-old male with end-stage renal disease on hemodialysis. Blood pressure, volume status and electrolytes are currently appropriate. P He is on dialysis Tuesday, Tuesday, Tuesday but missed treatment on Tuesday. Admitted with severe back pain however workup including MRI of lower back, abdomen pelvis CT scan as well as CTA chest was unremarkable. no explanation for the severe pain which patient still experiencing but getting relief with Dilaudid every 3 hours. Patient does have significant history of herniated disc however MRI reports that improvement from prior MRI which makes it difficult to explain his severe back pain. Recommendations -- currently otherwise doing well and tolerating HD -- Renal diet -- avoid IV fluid -- Medications appropriate for renal function --continue on current antihypertensive medications and low-salt diet, phosphate binders with meals -- getting physical therapy.
[2016-09-15] MEDS: POLYETHYLENE (MIRALAX) 17 GM PACK PO SCH ×2 (13:50→20:58)
[2016-09-15] MEDS: OXYCODONE/ACETAMINOPHEN 5-325 TAB PO PRN (13:53)
[2016-09-15] MEDS: MULTIVITAMIN TAB PO SCH (13:54)
[2016-09-15] MEDS: FUROSEMIDE 40 MG TAB PO SCH (13:55)
[2016-09-15] MEDS: ALLOPURINOL 100 MG TAB PO SCH (13:55)
[2016-09-15] MEDS: ASPIRIN 81 MG ECTAB PO SCH (14:00)
--- NOTE | 2016-09-15 15:59 | Progress Note ---
Medicine Progress Note Date & Time of Visit: Sep 15, 2016 at 15:45 . Subjective Ongoing severe back pain, especially when lying in bed or sitting in chair. Undergoing hemodialysis was very difficult. Try tramadol without any benefit. Receiving intermittent dosing of Percocet and intravenous hydromorphone. Still constipated- no bowel movement for 5 or 6 days. . Objective Last 8 Hrs Date Time Temp Pulse Resp B/P (MAP) Pulse Ox O2 Delivery O2 Flow Rate FiO2 09/15/16 15:40 36.6 69 16 111/70 (84) 98 Room Air 09/15/16 13:01 36.5 59 130/77 (94) 09/15/16 12:45 62 107/71 09/15/16 12:30 64 124/75 09/15/16 12:15 66 102/72 09/15/16 12:00 61 105/69 09/15/16 11:45 62 99/74 09/15/16 11:30 61 114/73 09/15/16 11:15 64 114/72 09/15/16 11:00 59 109/69 09/15/16 10:45 61 130/78 09/15/16 10:35 Room Air 09/15/16 10:30 62 125/75 09/15/16 10:15 64 136/86 09/15/16 10:00 64 133/77 09/15/16 09:45 60 117/74 09/15/16 09:30 68 131/73 09/15/16 09:15 61 125/72 09/15/16 09:00 65 148/82 09/15/16 08:54 67 133/77 09/15/16 08:40 36.7 71 148/83 (104) Physical Exam: General- appears to be uncomfortable, no acute distress Lungs- clear Heart- regular Abd- normal bowel sounds, soft, nontender Back- left lumbar paraspinal tenderness Extr- no pretibial edema or tenderness Neuro- alert . Laboratory Results: Last 24 Hours Test 09/14/16 16:34 09/14/16 20:30 09/15/16 07:27 09/15/16 12:26 Bedside Glucose 99 mg/dl 118 mg/dl 138 mg/dl 128 mg/dl Assessment & Plan LOW BACK PAIN No acute orthopedic or infectious process per imaging by CT or MRI. Underlying degenerative disc disease. Seen by Ortho. No need for surgical intervention. Continue analgesics. Try adding lidocaine patch. PT, OT. Increase activity as tolerated HYPERTENSION Continue amlodipine. ASTHMA Stable. CKD V ON HEMODIALYSIS Nephrology consulted for management. DM TYPE 1 Well-controlled. Hgb A1C = 6.2. FBS today = 138. Continue Lantus + NovoLog. CONSTIPATION Bowel regimen as ordered. Consider Relistor if no bowel movement by tomorrow. VTE PROPHYLAXIS SCD's. Ambulate. DISPOSITION Expected discharge to home. Family Medicine follow-up with Dr. Sanchez. . Current Inpatient Medications: Current Inpatient Medications Medications (Trade) Dose Ordered Sig/Rani Route Start Time Stop Time Status Last Admin Dose Admin Acetaminophen (Tylenol Tab) 650 mg Q4H PRN PO 09/10/16 18:45 10/10/16 18:44 Al Hydrox/Mg Hydrox/Simethicone (Maalox Max Susp) 15 ml Q4H PRN PO 09/10/16 18:45 10/10/16 18:44 Polyethylene (Miralax Powder Packet) 17 gm DAILY PRN PO 09/10/16 19:30 10/10/16 19:29 Ondansetron HCl (Zofran Inj) 4 mg Q6H PRN IV 09/10/16 18:45 10/10/16 18:44 09/13/16 00:21 4 MG Albuterol (Ventolin Hfa Inhaler) 2 puffs Q6H PRN INH 09/10/16 18:45 10/10/16 18:44 Allopurinol (Zyloprim Tab) 200 mg DAILY PO 09/11/16 08:00 10/11/16 08:59 09/15/16 13:55 200 MG Amlodipine Besylate (Norvasc Tab) 5 mg HS PO 09/10/16 21:00 10/10/16 20:59 09/14/16 20:32 5 MG Calcitriol (Rocaltrol Cap) 0.25 mcg DAILY PO 09/11/16 08:00 10/11/16 08:59 09/15/16 07:19 0.25 MCG Furosemide (Lasix Tab) 40 mg DAILY@1200 PO 09/11/16 12:00 10/11/16 11:59 09/15/16 13:55 40 MG Montelukast Sodium (Singulair Tab) 10 mg HS PO 09/10/16 21:00 10/10/16 20:59 09/14/16 20:31 10 MG Multivitamins (Multivitamin Tab) 1 tab DAILY PO 09/11/16 08:00 10/11/16 08:59 09/15/16 13:54 1 TAB Simvastatin (Zocor Tab) 20 mg HS PO 09/10/16 21:00 10/10/16 20:59 09/14/16 20:32 20 MG Calcium Acetate (Phoslo Cap) 2,001 mg TIDM PO 09/11/16 08:00 10/11/16 07:59 09/15/16 13:54 2,001 MG Oxycodone/ Acetaminophen (Percocet 5-325mg Tab) 1 tab Q4H PRN PO 09/10/16 18:45 09/24/16 18:44 09/15/16 13:53 1 TAB Hydromorphone HCl (Dilaudid Inj) 0.5 mg Q3HWA PRN IV 09/10/16 18:45 09/24/16 18:44 09/15/16 03:58 0.5 MG Insulin Glargine (Lantus Solostar Pen) 10 unit HS SC 09/10/16 21:00 10/10/16 20:59 09/14/16 20:34 10 UNIT Insulin Aspart (novoLOG ASPART) SLIDING SCALE G... ACHS SC 09/10/16 21:00 10/10/16 20:59 09/15/16 14:03 6 UNITS Furosemide (Lasix Tab) 80 mg AMHS PO 09/10/16 21:00 10/10/16 18:44 09/14/16 20:31 80 MG Aspirin (Ecotrin Tab) 81 mg DAILY PO 09/11/16 08:00 10/11/16 08:59 09/15/16 14:00 81 MG Multivitamins (Folbee Plus Cz Tab) 1 tab MoWeFr@1600 PO 09/13/16 16:00 10/13/16 15:59 09/13/16 15:35 1 TAB Glucose (Glucose 40% Gel) 15-30 GRAMS 15 GRAMS... UD PRN PO 09/10/16 20:30 10/10/16 20:29 Glucose (Glucose Chew Tab) 4-8 Tablets 4 Tabl... UD PRN PO 09/10/16 20:30 10/10/16 20:29 Dextrose (Dextrose 50% 50ML Syringe) 25-50ML OF 50% DW IV FOR... UD PRN IV 09/10/16 20:30 10/10/16 20:29 Glucagon (Glucagon Inj) 1 mg UD PRN SQ 09/10/16 20:30 10/10/16 20:29 Miscellaneous Information (Order Awaiting Action) 1 ea QS N/A 09/11/16 00:00 10/11/16 00:00 Levothyroxine Sodium (Synthroid Tab) 225 mcg DAILYBB PO 09/11/16 06:30 10/11/16 06:59 09/15/16 06:42 225 MCG Polyethylene (Miralax Powder Packet) 17 gm BID PO 09/14/16 20:00 10/13/16 17:59 09/15/16 13:50 17 GM Tramadol HCl (Ultram Tab) 50 mg Q8H PRN PO 09/14/16 23:30 10/14/16 23:29 09/15/16 10:25 50 MG
[2016-09-15] MEDS: FOLBEE PLUS CZ (DIATX) 1 TAB PO SCH (16:37)
[2016-09-15] MEDS ORDERED: BISACODYL 5 MG TABEC ONE (17:57)
[2016-09-15] MEDS ORDERED: BISACODYL 5 MG TABEC PO ONE (19:00)
[2016-09-15] MEDS: SIMVASTATIN 20 MG TAB PO SCH (21:00)
[2016-09-15] MEDS: AMLODIPINE BESYLATE 5 MG TAB PO SCH (21:01)
[2016-09-15] MEDS: MONTELUKAST SOD 10 MG TAB PO SCH (21:01)
[2016-09-15] MEDS: INSULIN GLARGINE SOLOSTAR 100 UNITS/ML 3 ML PEN SC SCH (21:03)
[2016-09-16 00:05] VITALS: BP 128/79; PULSE 64; TEMP 36.6; O2SAT 96
[2016-09-16] MEDS: HYDROmorphone INJ 0.5 MG/0.5 ML SYR IV PRN ×2 (00:59→05:40)
[2016-09-16] MEDS: OXYCODONE/ACETAMINOPHEN 5-325 TAB PO PRN (01:00)
[2016-09-16] MEDS: LEVOTHYROXINE SODIUM TAB 200 MCG, LEVOTHYROXINE SODIUM TAB 25 MCG PO SCH ×2 (05:40)
[2016-09-16] MEDS ORDERED: LIDODERM (LIDOCAINE) PATCH 5% TD SCH (08:00)
[2016-09-16 08:05] VITALS: BP 132/82; PULSE 71; TEMP 36.4; O2SAT 100
[2016-09-16] MEDS: FUROSEMIDE 80 MG TAB PO SCH (08:10)
[2016-09-16] MEDS: ASPIRIN 81 MG ECTAB PO SCH (08:10)
[2016-09-16] MEDS: MULTIVITAMIN TAB PO SCH (08:11)
[2016-09-16] MEDS: CALCITRIOL 0.25 MCG CAP PO SCH (08:11)
[2016-09-16] MEDS: CALCIUM ACETATE 667MG GELCAP PO SCH ×3 (08:11→17:09)
[2016-09-16] MEDS: POLYETHYLENE (MIRALAX) 17 GM PACK PO SCH (08:12)
[2016-09-16] MEDS: INSULIN ASPART 100 UNITS/ML 3 ML PEN SC SCH ×3 (08:19→16:30)
[2016-09-16] MEDS: ALLOPURINOL 100 MG TAB PO SCH (08:44)
[2016-09-16] MEDS ORDERED: METHYLNALTREXONE BROMIDE INJ 12 MG/0.6 ML SYR SQ ONE (10:00)
--- NOTE | 2016-09-16 11:45 | Nephrology Progress Note ---
Nephrology Progress Note Date of Service Sep 16, 2016. Chief Complaint Follow-up for end-stage renal disease on hemodialysis. Sayra Bassett was seen and examined in his room this morning. He is otherwise feeling well. His back pain improve significantly however now his back pain bothers mainly when he stays for dialysis for 4 hours, he tried id analgesic patch yesterday which did not help much. He is still constipated and has been trying different stool softener and laxative but still not able to have bowel movement. blood pressure, volume status and electrolyte acceptable. Review of Systems A complete review of systems was performed. Pertinent positives are noted above. All other systems are negative. Vital Signs Last 8 Hrs Date Time Temp Pulse Resp B/P (MAP) Pulse Ox O2 Delivery O2 Flow Rate FiO2 09/16/16 08:05 36.4 71 16 132/82 (99) 100 Room Air Last Recorded Weight Weight (Kilograms): 91.900 Physical Exam GENERAL: Middle-aged male, AAA x 3, pleasant, healthy-appearing, not in any distress. NECK: Supple, no JVD. RESPIRATORY: Normal breathing efforts, no accessory muscle use, clear to auscultation bilaterally, no wheezes or rales. CARDIOVASCULAR: S1, S2 normal, rate rhythm regular. EXTREMITY: trace bilateral lower extremity edema NEURO: speech fluent. PSYCHIATRY: Normal mood and judgment Family History Depression SISTER Diabetes mellitus MOTHER SISTER FH: cancer FATHER (lung CA) AUNT (breast CA) SISTER (melanoma) UNCLE (melanoma) Social History Smoking Status: Never smoker Drug Use: none Marital Status: Housing Status: lives with family Occupation: employed Laboratory Results Past 24 Hours Test 09/15/16 12:26 09/15/16 16:28 09/15/16 20:28 09/16/16 07:37 Bedside Glucose 128 mg/dl (70-99) 175 mg/dl (70-99) 139 mg/dl (70-99) 121 mg/dl (70-99) Allergies Coded Allergies: Milk (Verified Allergy, Unknown, 09/10/16) Cyclobenzaprine (Verified Adverse Reaction, Mild, FELT "AWFUL", 09/10/16) PT FELT AWFUL Medications Current Inpatient Medications Medications (Trade) Dose Ordered Sig/Rani Route Start Time Stop Time Status Last Admin Dose Admin Acetaminophen (Tylenol Tab) 650 mg Q4H PRN PO 09/10/16 18:45 10/10/16 18:44 Al Hydrox/Mg Hydrox/Simethicone (Maalox Max Susp) 15 ml Q4H PRN PO 09/10/16 18:45 10/10/16 18:44 Polyethylene (Miralax Powder Packet) 17 gm DAILY PRN PO 09/10/16 19:30 10/10/16 19:29 Ondansetron HCl (Zofran Inj) 4 mg Q6H PRN IV 09/10/16 18:45 10/10/16 18:44 09/13/16 00:21 4 MG Albuterol (Ventolin Hfa Inhaler) 2 puffs Q6H PRN INH 09/10/16 18:45 10/10/16 18:44 Allopurinol (Zyloprim Tab) 200 mg DAILY PO 09/11/16 08:00 10/11/16 08:59 09/16/16 08:44 200 MG Amlodipine Besylate (Norvasc Tab) 5 mg HS PO 09/10/16 21:00 10/10/16 20:59 09/15/16 21:01 5 MG Calcitriol (Rocaltrol Cap) 0.25 mcg DAILY PO 09/11/16 08:00 10/11/16 08:59 09/16/16 08:11 0.25 MCG Furosemide (Lasix Tab) 40 mg DAILY@1200 PO 09/11/16 12:00 10/11/16 11:59 09/15/16 13:55 40 MG Montelukast Sodium (Singulair Tab) 10 mg HS PO 09/10/16 21:00 10/10/16 20:59 09/15/16 21:01 10 MG Multivitamins (Multivitamin Tab) 1 tab DAILY PO 09/11/16 08:00 10/11/16 08:59 09/16/16 08:11 1 TAB Simvastatin (Zocor Tab) 20 mg HS PO 09/10/16 21:00 10/10/16 20:59 09/15/16 21:00 20 MG Calcium Acetate (Phoslo Cap) 2,001 mg TIDM PO 09/11/16 08:00 10/11/16 07:59 09/16/16 08:11 2,001 MG Oxycodone/ Acetaminophen (Percocet 5-325mg Tab) 1 tab Q4H PRN PO 09/10/16 18:45 09/24/16 18:44 09/16/16 01:00 1 TAB Hydromorphone HCl (Dilaudid Inj) 0.5 mg Q3HWA PRN IV 09/10/16 18:45 09/24/16 18:44 09/16/16 05:40 0.5 MG Insulin Glargine (Lantus Solostar Pen) 10 unit HS SC 09/10/16 21:00 10/10/16 20:59 09/15/16 21:03 10 UNIT Insulin Aspart (novoLOG ASPART) SLIDING SCALE G... ACHS SC 09/10/16 21:00 10/10/16 20:59 09/16/16 08:19 5 UNITS Furosemide (Lasix Tab) 80 mg AMHS PO 09/10/16 21:00 10/10/16 18:44 09/16/16 08:10 80 MG Aspirin (Ecotrin Tab) 81 mg DAILY PO 09/11/16 08:00 10/11/16 08:59 09/16/16 08:10 81 MG Multivitamins (Folbee Plus Cz Tab) 1 tab MoWeFr@1600 PO 09/13/16 16:00 10/13/16 15:59 09/15/16 16:37 1 TAB Glucose (Glucose 40% Gel) 15-30 GRAMS 15 GRAMS... UD PRN PO 09/10/16 20:30 10/10/16 20:29 Glucose (Glucose Chew Tab) 4-8 Tablets 4 Tabl... UD PRN PO 09/10/16 20:30 10/10/16 20:29 Dextrose (Dextrose 50% 50ML Syringe) 25-50ML OF 50% DW IV FOR... UD PRN IV 09/10/16 20:30 10/10/16 20:29 Glucagon (Glucagon Inj) 1 mg UD PRN SQ 09/10/16 20:30 10/10/16 20:29 Miscellaneous Information (Order Awaiting Action) 1 ea QS N/A 09/11/16 00:00 10/11/16 00:00 Levothyroxine Sodium (Synthroid Tab) 225 mcg DAILYBB PO 09/11/16 06:30 10/11/16 06:59 09/16/16 05:40 225 MCG Polyethylene (Miralax Powder Packet) 17 gm BID PO 09/14/16 20:00 10/13/16 17:59 09/16/16 08:12 17 GM Tramadol HCl (Ultram Tab) 50 mg Q8H PRN PO 09/14/16 23:30 10/14/16 23:29 09/15/16 10:25 50 MG Lidocaine (Lidoderm Patch 5%) 1 patch QAM TD 09/16/16 08:00 10/16/16 07:59 09/16/16 08:10 1 PATCH Miscellaneous (Remove Lidoderm Patch) 1 ea DAILY@21 N/A 09/16/16 08:59 10/16/16 08:58 Methylnaltrexone [place] (Relistor Inj) 12 mg TODAY@1000 ONCE SQ 09/16/16 10:00 09/16/16 10:01 UNV Impression (1) End-stage renal disease on hemodialysis (2) Hypertension (3) Back pain (4) DM type 1 (diabetes mellitus, type 1) Arden Zayas is a 46-year-old male with end-stage renal disease on hemodialysis. Blood pressure, volume status and electrolytes are currently appropriate. P He is on dialysis Tuesday, Tuesday, Tuesday but missed treatment on Tuesday. Admitted with severe back pain however workup including MRI of lower back, abdomen pelvis CT scan as well as CTA chest was unremarkable. no explanation for the severe pain which patient still experiencing but getting relief with Dilaudid every 3 hours. Patient does have significant history of herniated disc however MRI reports that improvement from prior MRI which makes it difficult to explain his severe back pain. Recommendations -- currently otherwise doing well, blood pressure, volume status electrolyte acceptable. -- of Hemodialysis tomorrow -- suggest giving lactulose 30 ml once a twice a day as needed -- Renal diet -- avoid IV fluid -- Medications appropriate for renal function --continue on current antihypertensive medications and low-salt diet, phosphate binders with meals -- getting physical therapy and analgesic patch, may need to take it regularly before dialysis session
[2016-09-16] MEDS: FUROSEMIDE 40 MG TAB PO SCH (12:08)
--- NOTE | 2016-09-16 12:37 | Orthopedic Progress Note ---
Orthopedic Progress Note Date of Service Sep 16, 2016. Subjective Post OP Day: Reports: feeling well, pain controlled w PO medications Additional Notes: constipated, pain controlled during day, no radicular pain or numbness. no fevers. Objective calves soft nontender, N/V intact mild L paraspinal tightness. Date Time Temp Pulse Resp B/P (MAP) Pulse Ox O2 Delivery O2 Flow Rate FiO2 09/16/16 08:05 36.4 71 16 132/82 (99) 100 Room Air 09/16/16 08:00 Room Air 09/16/16 00:15 Room Air 09/16/16 00:05 36.6 64 18 128/79 (95) 96 Room Air 09/15/16 16:00 Room Air 09/15/16 15:40 36.6 69 16 111/70 (84) 98 Room Air 09/15/16 13:01 36.5 59 130/77 (94) 09/15/16 12:45 62 107/71 Assessment & Plan Assessment: improving LBP and paraspinal spasm Plan: Recommend outpatient PT for massage/modalities, f/u with pain managment for consideration for ENMA if pain persists.
[2016-09-16] MEDS ORDERED: BISACODYL 10 MG SUPP PR ONE (14:30)
[2016-09-16 15:26] VITALS: BP 160/81; PULSE 70; TEMP 36.9; O2SAT 98
[2016-09-16] MEDS ORDERED: BISA-16 PO (16:37)
[2016-09-16] MEDS ORDERED: OXYC2.5T4 PO ×2 (16:46→16:52)
[2016-09-16] MEDS ORDERED: LIDO1PAD2 EXT ×2 (16:46→16:52)
[2016-09-16] MEDS ORDERED: SENN-65 PO ×2 (16:46→16:52)
--- NOTE | 2016-09-16 17:03 | Discharge Instructions ---
Discharge Instructions Date of Service Sep 16, 2016. Admission Reason for Admission: severe back pain . Discharge Discharge Diagnosis / Problem: lumbar strain Discharge Goals Goal(s): Decrease discomfort, Improve function Activity Recommendations Activity Limitations: as noted below Lifting Limitations: no more than 10 pounds . Instructions / Follow-Up Instructions / Follow-Up APPOINTMENTS: FAMILY MEDICINE 09/20/2016 11:20 AM Tricia Sanchez MD ME[employer] Please call Dr. Tim's office for appointment. INSTRUCTIONS: Lidocaine patches may help your back pain without causing side effects like drowsiness and constipation. Place over painful area of back in the morning, remove after 12 hours. Take oxycodone/acetaminophen (generic Percocet) 2.5/325 as follows: 1 pill every 8 hours for moderately severe pain 2 pills every 8 hours for very severe pain (This is a lower dose of oxycodone than you received in the hospital, so you may need 2 pills when the pain is very severe.) Eat plenty of fiber-rich foods to keep you bowels moving. Take Senokot-S 1 or 2 pills twice a day as needed to keep your bowels moving. May use Dulcolax tablet 1 or 2 pills as needed, but don't take every day. Seek medical attention if you have: * temperature above 101 * chest pain or trouble breathing * abdominal pain, nausea, vomiting * diarrhea, dark stools or bloody stools * any unanswered questions or concerns Call 911 if symptoms are severe. Call if you have any questions or problems. My cell # is [phone]. You can also reach a [facility] hospitalist on duty at [facility] 24 hours a day by calling [phone]. Please take good care of yourself. Mateo Shay . Current Hospital Diet Patient's current hospital diet: Diabetes Type 1 Diet, Renal Diet Discharge Diet Recommended Diet: Diabetes Type 2 Diet, Renal Diet Pending Studies Studies pending at discharge: no Laboratory Results Hemoglobin A1c Test 09/11/16 06:45 Range/Units Estimated Average Glucose 131 mg/dl Hemoglobin A1c 6.2 H 4.5-5.6 % Medical Emergencies . Who to Call and When: Medical Emergencies: If at any time you feel your situation is an emergency, please call 911 immediately. . Non-Emergent Contact Non-Emergency issues call your: Primary Care Provider, Hospital Doctor, Sales Manager [place] . . "Provider Documentation" section prepared by Mateo Shay. . VTE Core Measure Inpt VTE Proph given/why not?: SCD's
[2016-09-16 17:28] VITALS: BP 160/81; PULSE 70; TEMP 36.9; O2SAT 98
--- NOTE | 2016-09-16 20:34 | Progress Note ---
Medicine Progress Note Date & Time of Visit: Sep 16, 2016 at 16:35 . Subjective Back pain generally better; still bothersome in certain positions. Bowel movement today after receiving methylnaltrexone injection followed by bisacodyl suppository. Ambulating. Ready for discharge. . Objective Last 8 Hrs Date Time Temp Pulse Resp B/P (MAP) Pulse Ox O2 Delivery O2 Flow Rate FiO2 09/16/16 15:26 36.9 70 16 160/81 (107) 98 Room Air Physical Exam: General- no acute distress Lungs- clear Heart- regular Abd- normal bowel sounds, soft, nontender Back- less left lumbar paraspinal tenderness Extr- no pretibial edema or tenderness Neuro- alert . Laboratory Results: Last 24 Hours Test 09/15/16 20:28 09/16/16 07:37 09/16/16 11:19 Bedside Glucose 139 mg/dl 121 mg/dl 154 mg/dl Assessment & Plan LOW BACK PAIN No acute orthopedic or infectious process per imaging by CT or MRI. Underlying degenerative disc disease. Seen by Ortho. Probable lumbar sprain. No need for surgical intervention. Received PT, OT. Tramadol not effective. Discharge on oxycodone / acetaminophen PRN + lidocaine patch. Outpatient PT / OT. HYPERTENSION Continue amlodipine. ASTHMA Stable. CKD V ON HEMODIALYSIS Nephrology consulted for management. DM TYPE 1 Well-controlled. Hgb A1C = 6.2. FBS today = 121. Continue Lantus + NovoLog. CONSTIPATION Severe constipation for several days. Eventual results after several doses of MiraLax and eventually methylnaltrexone and bisacodyl suppository. Discharge on docusate sodium / senna 1-2 BID + bisacodyl tabs PRN. VTE PROPHYLAXIS SCD's. Ambulate. DISPOSITION Discharge to home. Family Medicine follow-up with Dr. Sanchez. [place] [facility] . Current Inpatient Medications: Current Inpatient Medications Medications (Trade) Dose Ordered Sig/Rani Route Start Time Stop Time Status Last Admin Dose Admin Acetaminophen (Tylenol Tab) 650 mg Q4H PRN PO 09/10/16 18:45 10/10/16 18:44 Al Hydrox/Mg Hydrox/Simethicone (Maalox Max Susp) 15 ml Q4H PRN PO 09/10/16 18:45 10/10/16 18:44 Polyethylene (Miralax Powder Packet) 17 gm DAILY PRN PO 09/10/16 19:30 10/10/16 19:29 Ondansetron HCl (Zofran Inj) 4 mg Q6H PRN IV 09/10/16 18:45 10/10/16 18:44 09/13/16 00:21 4 MG Albuterol (Ventolin Hfa Inhaler) 2 puffs Q6H PRN INH 09/10/16 18:45 10/10/16 18:44 Allopurinol (Zyloprim Tab) 200 mg DAILY PO 09/11/16 08:00 10/11/16 08:59 09/16/16 08:44 200 MG Amlodipine Besylate (Norvasc Tab) 5 mg HS PO 09/10/16 21:00 10/10/16 20:59 09/15/16 21:01 5 MG Calcitriol (Rocaltrol Cap) 0.25 mcg DAILY PO 09/11/16 08:00 10/11/16 08:59 09/16/16 08:11 0.25 MCG Furosemide (Lasix Tab) 40 mg DAILY@1200 PO 09/11/16 12:00 10/11/16 11:59 09/16/16 12:08 40 MG Montelukast Sodium (Singulair Tab) 10 mg HS PO 09/10/16 21:00 10/10/16 20:59 09/15/16 21:01 10 MG Multivitamins (Multivitamin Tab) 1 tab DAILY PO 09/11/16 08:00 10/11/16 08:59 09/16/16 08:11 1 TAB Simvastatin (Zocor Tab) 20 mg HS PO 09/10/16 21:00 10/10/16 20:59 09/15/16 21:00 20 MG Calcium Acetate (Phoslo Cap) 2,001 mg TIDM PO 09/11/16 08:00 10/11/16 07:59 09/16/16 12:08 2,001 MG Oxycodone/ Acetaminophen (Percocet 5-325mg Tab) 1 tab Q4H PRN PO 09/10/16 18:45 09/24/16 18:44 09/16/16 01:00 1 TAB Hydromorphone HCl (Dilaudid Inj) 0.5 mg Q3HWA PRN IV 09/10/16 18:45 09/24/16 18:44 09/16/16 05:40 0.5 MG Insulin Glargine (Lantus Solostar Pen) 10 unit HS SC 09/10/16 21:00 10/10/16 20:59 09/15/16 21:03 10 UNIT Insulin Aspart (novoLOG ASPART) SLIDING SCALE G... ACHS SC 09/10/16 21:00 10/10/16 20:59 09/16/16 12:28 5 UNITS Furosemide (Lasix Tab) 80 mg AMHS PO 09/10/16 21:00 10/10/16 18:44 09/16/16 08:10 80 MG Aspirin (Ecotrin Tab) 81 mg DAILY PO 09/11/16 08:00 10/11/16 08:59 09/16/16 08:10 81 MG Multivitamins (Folbee Plus Cz Tab) 1 tab MoWeFr@1600 PO 09/13/16 16:00 10/13/16 15:59 09/15/16 16:37 1 TAB Glucose (Glucose 40% Gel) 15-30 GRAMS 15 GRAMS... UD PRN PO 09/10/16 20:30 10/10/16 20:29 Glucose (Glucose Chew Tab) 4-8 Tablets 4 Tabl... UD PRN PO 09/10/16 20:30 10/10/16 20:29 Dextrose (Dextrose 50% 50ML Syringe) 25-50ML OF 50% DW IV FOR... UD PRN IV 09/10/16 20:30 10/10/16 20:29 Glucagon (Glucagon Inj) 1 mg UD PRN SQ 09/10/16 20:30 10/10/16 20:29 Miscellaneous Information (Order Awaiting Action) 1 ea QS N/A 09/11/16 00:00 10/11/16 00:00 Levothyroxine Sodium (Synthroid Tab) 225 mcg DAILYBB PO 09/11/16 06:30 10/11/16 06:59 09/16/16 05:40 225 MCG Polyethylene (Miralax Powder Packet) 17 gm BID PO 09/14/16 20:00 10/13/16 17:59 09/16/16 08:12 17 GM Tramadol HCl (Ultram Tab) 50 mg Q8H PRN PO 09/14/16 23:30 10/14/16 23:29 09/15/16 10:25 50 MG Lidocaine (Lidoderm Patch 5%) 1 patch QAM TD 09/16/16 08:00 10/16/16 07:59 09/16/16 08:10 1 PATCH Miscellaneous (Remove Lidoderm Patch) 1 ea DAILY@21 N/A 09/16/16 08:59 10/16/16 08:58
--- NOTE | 2016-09-16 20:40 | Discharge Summary ---
Discharge Summary Date of Service Sep 16, 2016. Discharge Summary Admission Date: Sep 10, 2016 at 19:00 Discharge Date: Sep 16, 2016 Discharge Disposition: Home Principal Diagnosis: severe low back pain obstipation . Secondary Diagnoses/Problems: Chronic Medical Problems: (1) Anemia Status: Chronic (2) Asthma Status: Chronic (3) Diabetic retinopathy Status: Chronic (4) DM type 1 (diabetes mellitus, type 1) Permanent Comment: on insulin pump Status: Chronic (5) End-stage renal disease on hemodialysis Status: Chronic (6) GERD (gastroesophageal reflux disease) Status: Chronic (7) Gout Status: Chronic (8) Hypercholesteremia Status: Chronic (9) Hypertension Status: Chronic (10) Hypothyroidism Status: Chronic (11) S/p laser surgery of eye Status: Chronic Surgical Problems: (1) H/O arthroscopic knee surgery Status: Chronic (2) S/P cholecystectomy Status: Chronic (3) S/P lumbar laminectomy Permanent Comment: 09/[address] Talbert Status: Chronic . Procedures: CT abdomen and pelvis CT lumbar spine MRI lumbar spine PT OT . Medication Reconciliation New Medications: Lidocaine (Lidocaine) 5 % Pad 1 PATCH EXT DAILY PRN for back pain, #7 PATCH 2 Refills Apply to back in the morning. Remove after 12 hours. Oxycodone/Acetaminophen 2.5MG/325MG (Oxycodone/Acetaminophen 2.5MG/325MG) 1 Tab Tab 1-2 TABS PO Q8 PRN for severe pain, #20 TAB 1 pill for moderately severe pain 2 pills for very severe pain do not drive after taking Senna/Docusate Sod (Senokot S) 1 Tab Tab 1-2 TAB PO BID PRN for Constipation, #60 TAB Take 1 or 2 pills twice a day as needed for constipation. No prescription necessary. Continued Medications: Albuterol Hfa (Ventolin Hfa) 200 Puffs/67906 Mcg Aers 2-4 PUFFS INH Q6H, INHALER Allopurinol (Zyloprim) 100 Mg Tab 200 MG PO DAILY Amlodipine Besylate (Norvasc) 5 Mg Tab 5 MG PO HS, TAB Aspirin (Aspir-81) 81 Mg Tab 1 TAB PO DAILY for 90 Days, #90 TAB 1 Refill B-Complex W/ D-[id number] (Folbee Plus Cz) 1 Tab Tab 1 TAB PO MWF Take one tab in evening on dialysis days Bisacodyl (Dulcolax) 5 Mg Tab 2 TAB PO DAILY PRN for Constipation, TAB Calcitriol (Rocaltrol Cap) 0.25 Mcg Cap 0.25 MCG PO DAILY, CAP Calcium Acetate (Phosphate Bin (Calcium Acetate) 667 Mg Tab 2001 MG PO TIDM Furosemide (Lasix) 40 Mg Tab 80 MG PO am & pm, TAB Take 40 mg in afternoon and 40 mg before bed. Furosemide (Lasix) 40 Mg Tab 40 MG PO 1200, TAB Insulin Aspart (novoLOG INSULIN PUMP ) 1 Ea Inj 1 EA N/A UD, EA Total basal 19.85 units/day Goal 90-130 mg/dL Sensitivity factor=35 Carb ratio=1 unit per 8 grams Levocetirizine Dihydrochloride (Levocetirizine Dihydrochl) 5 Mg Tab 5 MG PO HS Levothyroxine Sodium (Synthroid) 200 Mcg Tab 225 MCG PO DAILY, #90 Montelukast Sod (Montelukast Sodium) 10 Mg Tab 1 TAB PO HS, #90 Multiple Vitamin (Multivitamin) 1 Tab Tab 1 TAB PO DAILY for 90 Days, #90 TAB 3 Refills Simvastatin (Zocor) 20 Mg Tab 20 MG PO HS, 0 Refills Admission Information HPI (per Admitting provider): HISTORY OF PRESENT ILLNESS: This is a 46-year-old male with past medical history significant for end-stage renal disease on dialysis, hypertension, GERD, obesity, hyperlipidemia, gout, type 1 diabetes, hypothyroidism, allergic rhinitis, presents with severe back pain. The patient says that he did not move his bowels for the last 2 days. Patient works in the hospital. At work today, could not bend his back and had a severe intractable back pain, brought tears to his eyes and he was brought into the ER. He says the pain was in the left back and slightly radiating to his groin. CAT scan of the abdomen and pelvis did not show any kidney stone. He had a small bowel movement in the morning, but otherwise he did not move bowels for the last 2 days. Denies any fevers, chills, no headaches. No blurred visions. Has some cough, was nauseous earlier. Currently, still has significant pain but is better than in the morning and he missed his dialysis today. Hemodynamically stable. . Physical Exam (per Admitting): GENERAL: The patient is obese, not in distress. VITAL SIGNS: Temperature 36.8, pulse 76, respiratory rate 18, blood pressure 134/77, oxygen 93% on room air. HEENT: No pallor, no icterus. Pupils equal, round, and reactive to light. NECK: No JVD, no neck masses, no carotid bruits. CARDIOVASCULAR: S1, S2 heard, regular rate and rhythm, no murmur, no gallop. RESPIRATORY SYSTEM: Clear to auscultation bilaterally. No wheezing, no crackles. ABDOMEN: Soft, bowel sounds present. Nontender. No distention. MUSCULOSKELETAL: Some point tenderness in the left lumbar paraspinal region. No erythema was seen. CENTRAL NERVOUS SYSTEM: Nonfocal. EXTREMITIES: No edema. No erythema. . Hospital Course LOW BACK PAIN Presented with severe low back pain. No associated trauma. No acute orthopedic or infectious process per imaging by CT or MRI. Underlying degenerative disc disease. Seen by Ortho. No need for surgical intervention. Received PT, OT. Tramadol not effective. Discharge on oxycodone / acetaminophen PRN + lidocaine patch. Outpatient PT / OT. HYPERTENSION Continue amlodipine. ASTHMA Stable. CKD V ON HEMODIALYSIS Nephrology consulted for management. DM TYPE 1 Well-controlled. Hgb A1C = 6.2. FBS day of discharge = 121. Continue Lantus + NovoLog. CONSTIPATION Severe constipation for several days. Eventual results after several doses of MiraLax and eventually methylnaltrexone and bisacodyl suppository. Discharge on docusate sodium / senna 1-2 BID + bisacodyl tabs PRN. VTE PROPHYLAXIS SCD's. Ambulate. DISPOSITION Discharge to home. Family Medicine follow-up with Dr. Sanchez. [place] [facility] [facility] . Total time spent on discharge = 35 min. This includes examination of the patient, discharge planning, medication reconciliation, and communication with other providers. . Discharge Instructions Date of Service Sep 16, 2016. Admission Reason for Admission: severe back pain . Discharge Discharge Diagnosis / Problem: lumbar strain Discharge Goals Goal(s): Decrease discomfort, Improve function Activity Recommendations Activity Limitations: as noted below Lifting Limitations: no more than 10 pounds . Instructions / Follow-Up Instructions / Follow-Up APPOINTMENTS: FAMILY MEDICINE 09/20/2016 11:20 AM Tricia Sanchez MD R[employer] DRILLER Please call Dr. Tim's office for appointment. INSTRUCTIONS: Lidocaine patches may help your back pain without causing side effects like drowsiness and constipation. Place over painful area of back in the morning, remove after 12 hours. Take oxycodone/acetaminophen (generic Percocet) 2.5/325 as follows: 1 pill every 8 hours for moderately severe pain 2 pills every 8 hours for very severe pain (This is a lower dose of oxycodone than you received in the hospital, so you may need 2 pills when the pain is very severe.) Eat plenty of fiber-rich foods to keep you bowels moving. Take Senokot-S 1 or 2 pills twice a day as needed to keep your bowels moving. May use Dulcolax tablet 1 or 2 pills as needed, but don't take every day. Seek medical attention if you have: * temperature above 101 * chest pain or trouble breathing * abdominal pain, nausea, vomiting * diarrhea, dark stools or bloody stools * any unanswered questions or concerns Call 911 if symptoms are severe. Call if you have any questions or problems. My cell # is [phone]. You can also reach a [facility] hospitalist on duty at [facility] 24 hours a day by calling [phone]. Please take good care of yourself. Mateo Shay . Current Hospital Diet Patient's current hospital diet: Diabetes Type 1 Diet, Renal Diet Discharge Diet Recommended Diet: Diabetes Type 2 Diet, Renal Diet Pending Studies Studies pending at discharge: no Laboratory Results Hemoglobin A1c Test 09/11/16 06:45 Range/Units Estimated Average Glucose 131 mg/dl Hemoglobin A1c 6.2 H 4.5-5.6 % Medical Emergencies . Who to Call and When: Medical Emergencies: If at any time you feel your situation is an emergency, please call 911 immediately. . Non-Emergent Contact Non-Emergency issues call your: Primary Care Provider, Hospital Doctor, Faucets Assembler . . "Provider Documentation" section prepared by Mateo Shay. . VTE Core Measure Inpt VTE Proph given/why not?: SCD's .
== END 2016-09-16 17:56 | disposition home or self-care (01) | DRG 551 ==
LOC: C.EDB 12:16 → C.MS4W 19:00 → ENRESERV 19:31
PROVIDERS: ADMIT Internal Medicine; ATTEND Hospitalist
DX: M54.9 Dorsalgia, unspecified (principal); N18.6 End stage renal disease; N25.81 Secondary hyperparathyroidism of renal origin; J45.901 Unspecified asthma with (acute) exacerbation; I12.0 Hypertensive chronic kidney disease with stage 5 chronic kidney disease or end stage renal disease; M96.1 Postlaminectomy syndrome, not elsewhere classified; M51.86 Other intervertebral disc disorders, lumbar region; D64.9 Anemia, unspecified; K59.00 Constipation, unspecified; K21.9 Gastro-esophageal reflux disease without esophagitis; E78.00 Pure hypercholesterolemia, unspecified; E03.9 Hypothyroidism, unspecified; E66.9 Obesity, unspecified; E11.22 Type 2 diabetes mellitus with diabetic chronic kidney disease; E11.319 Type 2 diabetes mellitus with unspecified diabetic retinopathy without macular edema; Z96.41 Presence of insulin pump (external) (internal); M10.9 Gout, unspecified; Z83.3 Family history of diabetes mellitus; Z79.82 Long term (current) use of aspirin; Z79.899 Other long term (current) drug therapy; Z99.2 Dependence on renal dialysis; Z79.4 Long term (current) use of insulin; Z68.35 Body mass index [BMI] 35.0-35.9, adult

== ENCOUNTER → 2016-09-30 | Outpatient (CLI) | payer OTHER ==
[~2016-09-30] MED LIST changes: -ALBUAER2 INH; +ASPI-232 PO; +BISA-16 PO; +LIDO1PAD2 EXT; -OXYC1TAB3 PO; +OXYC2.5T4 PO; +SENN-65 PO; +VNTHFA/IN INH
--- NOTE | 2016-09-30 09:58 | DIAGNOSTIC IMAGING REPORT ---
ABD/PELVIS NO IV OR ORAL CONT CLINICAL HISTORY: 46 years-old Male presenting with PRE TRANSPLANT. TECHNIQUE: Multidetector CT of the abdomen and pelvis was performed without the use of intravenous contrast. IV contrast: None. COMPARISON: 09/10/2016. CT DOSE: The estimated cumulative dose is 971.90 mGycm. FINDINGS: Press Offbearer topogram: Cholecystectomy clips noted. Lung bases: Lung bases clear. Aortic valve calcification. Normal heart size. No pericardial or pleural effusion. Liver: Normal morphology. No evidence of hepatic steatosis. Biliary: No gross evidence of biliary ductal dilatation. Gallbladder surgically absent. Pancreas: Normal. Spleen: Top normal in size. Adrenal glands: Normal. Kidneys and ureters: Atrophic bilaterally. No nephrolithiasis. No hydronephrosis. Gastrointestinal tract: Normal. No bowel obstruction. Peritoneal cavity: No free fluid or intraperitoneal gas. Bladder: Incompletely evaluated secondary to underdistention. Pelvic organs: Prostate and seminal vesicles normal. Vasculature: Normal noncontrast appearance of the aorta. The IVC is flattened, which could suggest a hypovolemic state. Lymph nodes: No enlarged lymph nodes in the abdomen or pelvis. Abdominal wall: Normal. Musculoskeletal: Normal. IMPRESSION: 1. Bilaterally atrophic kidneys consistent with chronic renal disease. No nephrolithiasis. 2. No evidence of hepatic steatosis. 3. No acute intra-abdominal pathology within the limitations of noncontrast technique. Electronically signed by: Tacos Crews M.D. 09/30/2016 9:57 AM Dictated Date/Time: 09/30/2016 9:50 AM
== END | disposition home or self-care (01) ==
LOC: C.CTS 09:26
PROVIDERS: ATTEND Transplant Surgery
DX: N18.6 End stage renal disease (principal)

== ENCOUNTER → 2016-10-12 | Outpatient (CLI) | payer OTHER ==
[2016-10-12 13:23] LABS: ESTIMATED AVERAGE GLUCOSE 128 mg/dl; HA1C FLAG Normal (Normal)
[2016-10-12 13:33] LABS: ALB/GLOB RATIO 0.9 (0.9-2); ALKALINE PHOSPHATASE 104 U/L (45-117); ALT/SGPT 34 U/L (12-78); AST/SGOT 24 U/L (15-37); BLOOD UREA NITROGEN 50 mg/dl (7-18); BUN/CREATININE RATIO 6.3 (10-20); CALCIUM 8.2 mg/dl (8.5-10.1); CARBON DIOXIDE 31 mmol/L (21-32); CHLORIDE 100 mmol/L (98-107); CHOLESTEROL 153 mg/dl (0-200); CHOLESTEROL/HDL RATIO 3.6; GLUCOSE 132 mg/dl (70-99); HDL CHOLESTEROL 43 mg/dl; LDL CHOLESTEROL CALCULATED 57 mg/dl; POTASSIUM 3.5 mmol/L (3.5-5.1); SODIUM 141 mmol/L (136-145); TRIGLYCERIDES 265 mg/dl (0-150); VERY LOW DENSITY LIPOPROT CALC 53 mg/dl
== END | disposition home or self-care (01) ==
LOC: C.LAB 06:01
PROVIDERS: ATTEND Nurse Practitioner Adult Health
DX: E03.9 Hypothyroidism, unspecified (principal); E10.21 Type 1 diabetes mellitus with diabetic nephropathy; E78.5 Hyperlipidemia, unspecified

== ENCOUNTER → 2016-10-14 | Outpatient (CLI) | payer OTHER ==
[~2016-10-14] MED LIST changes: +REGADENOSON 0.4 MG/5 ML SYR ONE
--- NOTE | 2016-10-14 17:57 | Myocardial Perfusion Study ---
Myocardial Perfusion Study Rpt Myocardial Perfusion Study Rpt Date of Service 10/14/2016 Myocardial Perfusion Study Rpt Procedure: 1. Myocardial perfusion study performed in multiple views/images 2. Lexiscan pharmacologic stress ECG Indications: 1. Pre transplant cardiac evaluation Consent: Informed written consent was obtained prior to the procedure. Ordering physician: Dr. Goode Procedural details: For the stress portion of the study, Lexiscan 0.4 mg was intravenously administered followed by a saline flush. This was followed by 33 mCi of technetium 99m Cardiolite, injected at 11:30 a.m. on 10/14/2016. 30 minutes following the injection, imaging of the heart was performed in multiple projections. For the rest portion of the study, 10.5 mCi technetium 99m Cardiolite was injected intravenously at 9:40 a.m. on 10/14/2016. 1 hour following the injection, imaging of the heart was performed in the same projections. Lexiscan stress ECG: Resting ECG demonstrated: NSR at 70 bpm Maximum heart rate: 90 bpm Resting blood pressure: 147/82 mmHg Maximum blood pressure: 147/82 mmHg Maximal, age-predicted heart rate: 52 % Significant ST changes: None Arrhythmia: None Symptoms: Shortness of breath, which spontaneously resolved. Findings: Rotating raw imaging demonstrated no significant lung uptake. There is no significant motion artifact. Heart size appeared normal. Myocardial perfusion was normal without significant reversible or fixed defect. Ejection fraction: 67 % Wall motion: Normal No significant transient ischemic dilation. Impression: 1. Normal myocardial perfusion study. 2. Normal wall motion and LV systolic function. EF 67%. 3. No arrhythmia. 4. Lexiscan induced shortness of breath. 5. Nondiagnostic Lexiscan ECG.
== END | disposition home or self-care (01) ==
LOC: C.NUCL 09:08
PROVIDERS: ATTEND Internal Medicine Cardiovascular Disease
DX: Z01.810 Encounter for preprocedural cardiovascular examination (principal); N18.6 End stage renal disease

== ENCOUNTER → 2016-12-30 | Outpatient (CLI) | payer OTHER ==
[~2016-12-30] MED LIST changes: -REGADENOSON 0.4 MG/5 ML SYR ONE
[2016-12-30 08:29] LABS: THYROID STIMULATING HORMONE 0.025 uIu/ml (0.300-4.500)
[2016-12-30 14:38] LABS: ESTIMATED AVERAGE GLUCOSE 128 mg/dl; HA1C FLAG Normal (Normal)
== END | disposition home or self-care (01) ==
LOC: C.LAB 05:22
PROVIDERS: ATTEND Nurse Practitioner Adult Health
DX: E10.21 Type 1 diabetes mellitus with diabetic nephropathy (principal); E03.9 Hypothyroidism, unspecified

== ENCOUNTER → 2017-04-13 | Outpatient (CLI) | payer OTHER ==
[~2017-04-13] MED LIST changes: -OXYC2.5T4 PO; -SENN-65 PO
== END | disposition home or self-care (01) ==
LOC: C.LAB 05:41
PROVIDERS: ATTEND Internal Medicine Endocrinology, Diabetes & Metabolism
DX: E03.9 Hypothyroidism, unspecified (principal); E06.3 Autoimmune thyroiditis

== ENCOUNTER → 2017-07-21 | Outpatient (CLI) | payer OTHER ==
[2017-07-21 15:38] LABS: HEMATOCRIT 32.8 % (42-52); HEMOGLOBIN 11.5 g/dL (14.0-18.0)
[2017-07-22 06:27] LABS: HEMOGLOBIN A1C 5.8 % (4.5-5.6)
== END | disposition home or self-care (01) ==
LOC: C.LAB 14:16
PROVIDERS: ATTEND Nurse Practitioner Adult Health
DX: E03.9 Hypothyroidism, unspecified (principal)

== ENCOUNTER → 2017-11-01 | Outpatient (CLI) | payer OTHER ==
[~2017-11-01] MED LIST changes: +REGADENOSON 0.4 MG/5 ML SYR ONE
--- NOTE | 2017-11-01 08:26 | DIAGNOSTIC IMAGING REPORT ---
ABDOMEN COMPLETE (US) CLINICAL HISTORY: 47 years-old Male presenting with EVAL Liver, gallbladder, PANCREAS, Spleen, and [place] [facility]. TECHNIQUE: Real-time grayscale and limited color Doppler ultrasound imaging of the abdomen was performed. COMPARISON: 10/03/[address] from 09/30/2016. FINDINGS: Pancreas: Largely obscured due to overlying bowel gas. Liver: Normal echogenicity and echotexture. The liver measures 16.4 cm in maximal sagittal dimension. No sonographic evidence of hepatic mass. Main portal vein patent with normal directional flow. Biliary: No intrahepatic biliary ductal dilatation. Common bile duct measures up to 8 mm in diameter. Gallbladder: Surgically absent. Spleen: Normal in echogenicity though slightly enlarged, measuring 13.5 cm in length. Kidneys: Hyperechogenicity of renal parenchyma with cortical thinning consistent with chronic atrophy. Right kidney measures 8.2 cm, and left kidney measures 8.7 cm. No hydronephrosis. Vasculature: Visualized portions of the IVC and abdominal aorta normal. Ascites: None. Other: None. IMPRESSION: 1. Mild splenomegaly. 2. Chronic medical renal disease. No hydronephrosis. 3. Nonvisualization of the pancreas due to bowel gas. 4. No sonographic evidence of hepatic steatosis. 5. Mild extra hepatic biliary ductal dilatation likely a reservoir effect in the post cholecystectomy state. Electronically signed by: Tacos Crews M.D. 11/01/2017 8:25 AM Dictated Date/Time: 11/01/2017 8:21 AM
--- NOTE | 2017-11-01 08:32 | DIAGNOSTIC IMAGING REPORT ---
CHEST 2 VIEWS ROUTINE CLINICAL HISTORY: Anemia. End-stage renal disease. COMPARISON STUDY: Chest CT September 10, 2016. FINDINGS: Lung volumes are normal. There is no consolidation or evidence for pulmonary edema. Cardiomediastinal silhouette is normal. There is no pneumothorax or pleural effusion. The appearance of the chest is unchanged. IMPRESSION: No acute cardiopulmonary findings. Electronically signed by: Franky Montero M.D. 11/01/2017 8:30 AM Dictated Date/Time: 11/01/2017 8:29 AM
--- NOTE | 2017-11-02 14:54 | MYOCARDIAL PERFUSION SCAN ---
NAME OF STUDY: A 1-Day Nuclear Medicine Technetium-99M Cardiolite myocardial perfusion scan. CLINICAL HISTORY: This stress test is being performed as a preoperative evaluation. The patient is in a renal transplantation list. COMPARISON: None. TECHNIQUE: For the stress portion of the study, 33 mCi of Technetium 99 m Cardiolite IV was injected at 9:30 a.m. on 11/01/2017. 30 minutes following the injection, imaging of the heart was performed in multiple projection. For the rest portion of the study, 9.8 mCi of Technetium 99 m Cardiolite was injected IV at 7:50 a.m. One hour following the injection, imaging of the heart was performed in the same projections. For the stress portion of the study, 0.4 mg of Lexiscan was injected intravenously as per protocol. Baseline EKG notes sinus rhythm without abnormalities. There are no ST segment changes seen during the infusion. Patient did not experience chest discomfort. Following the study, patient was hemodynamically stable without complaints. FINDINGS: Short axis, long axis, and horizontal long axis images were reviewed in detail. There is normal myocardial perfusion uptake at both stress and rest. This excludes a prior myocardial infarction and evidence of myocardial induced ischemia. The left ventricle demonstrates normal systolic function with an ejection fraction of 60%. There are no wall motion abnormalities. CONCLUSIONS: 1. No scintigraphic evidence of a prior myocardial infarction or stress induced myocardial ischemia. 2. No Lexiscan induced chest pain. 3. No Lexiscan induced EKG changes. 4. Normal left ventricular systolic function without wall motion abnormalities. Left ventricular ejection fraction is 60%.
== END | disposition home or self-care (01) ==
LOC: C.ULTR 06:33
PROVIDERS: ATTEND Transplant Surgery
DX: N18.6 End stage renal disease (principal)

== ENCOUNTER 2020-04-28 12:40 | Inpatient (IN) ==
[2020-04-28] MEDS ORDERED: DEXAMETHASONE SOD INJ 10 MG/ML VIAL IV ONE (13:08)
--- NOTE | 2020-04-28 13:11 | Emergency Department Note ---
Impression & Plan Pneumonia due to 2019-nCoV, Hypoxia ED Provider Note NAME: MAJO PEREA AGE: 50 SEX: M : 1970 ARRIVES VIA: Walk-In INFORMANT: Patient, ED PROVIDER(S): Zhao Raines DO CHIEF COMPLAINT: Shortness of breath HPI: Patient is a 50-year-old male with a past medical history of a renal transplant secondary to diabetes who started with symptoms this past Tuesday. He started with a cough, shortness of breath, congestion as well as diarrhea. He also admits to diffuse weakness. He is having fevers in the past 24 hours. Using a pulse ox at home was it 87% and he was sent in. He is significantly dyspneic with any kind of exertion. He has been in contact with [facility] infectious disease who recommend that he come in for admission. ROS: See above HPI for pertinent positives & negatives. A total of 10 systems reviewed and were otherwise negative. PAST MEDICAL HISTORY:See Below PAST SURGICAL HISTORY:See Below FAMILY HISTORY:See Below SOCIAL HISTORY:See Below HOME MEDICATIONS:See Below ALLERGIES:See Below VITALS:See Below PHYSICAL EXAMINATION: GENERAL: Sitting up in bed, alert, dyspneic with any exertion, ill-appearing EYE EXAM: normal conjunctiva. PERRL and EOM's grossly intact. OROPHARYNX: no exudate, no erythema, lips, buccal mucosa, and tongue normal and mucous membranes are moist NECK: supple, no nuchal rigidity, no adenopathy, non-tender LUNGS: Clear to auscultation. Normal chest wall mechanics HEART: no murmurs, S1 normal and S2 normal ABDOMEN: abdomen soft, non-tender, normo-active bowel sounds, no masses, no rebound or guarding. UPPER EXTREMITIES: upper extremities are grossly normal. LOWER EXTREMITIES: No pitting edema. Calves are equal bilateral NEURO EXAM: Normal sensorium, cranial nerves II-XII grossly intact, normal speech, no gross weakness of arms, no gross weakness of legs. MEDICAL DECISION MAKING: Patient is a 50-year-old male who is Covid positive the presents the ER for shortness of breath with a pulse ox at home of 87% referred in by infectious disease. IV was established blood work was obtained. He was found to be hypoxic upon presentation at 88 to 89% with minimal exertion.Labs show no significant leukocytosis or anemia. D-dimer was mildly elevated at 850. Will defer to hospitalist for CT angio of the I favor this is likely secondary to Covid as opposed to true PEs in Pt with renal transplants. BMP with a creatinine of 1.5 consistent with previous. Troponin was negative. LFTs bilirubin lipase was unremarkable. Chest x-ray with bilateral infiltrates.He was given Tylenol fluids and steroids. He was updated bedside. Discussed with hospitalist for further evaluation. Triage Nursing notes reviewed. Limited review of prior medical records performed Vital Signs: reviewed and remarkable for febrile and hypoxic Differential diagnosis: Differential diagnoses includes but is not limited to pneumonia, bronchitis, COPD/Asthma exacerbation, pneumothorax, pulmonary embolism, congestive heart failure, acute coronary syndrome ER treatment provided: See below Diagnostics interpreted by me: ECG: Sinus rhythm rate of 77 Normal axis No PVCs QTC 420 Cardiac Monitoring: An order was placed for continuous cardiac monitoring. The monitor shows a rate of 77 with sinus rhythm. Laboratory studies: As stated above and show below. Imaging studies: Portable AP upright 1 view of the chest shows bilateral infiltrates Consultation(s): Discussed with hospitalist for further evaluation Procedures: none Critical Care: None Past Med/Surg History Medical History Back pain End-stage renal disease on hemodialysis ESRD (end stage renal disease) on dialysis Hypercholesteremia Intractable back pain Surgical History H/O arthroscopic knee surgery S/P cholecystectomy S/P lumbar laminectomy "09/[address] Talbert" Social History Smoking Status: Never smoker Hx Alcohol Use: No Preferred Language: Greek Communication Ability: Effective marital status: Current Living Situation: Spouse current occupational status: employed current occupation: [employer] Feels Safe at Home: Yes Allergies Allergies Allergy/AdvReac Type Severity Reaction Status Date / Time milk Allergy Unknown Unknown Verified 04/28/20 14:19 cyclobenzaprine AdvReac Mild FELT Verified 04/28/20 14:19 "AWFUL" Home Meds Home Medications Medication Instructions Recorded Confirmed amlodipine 10 mg tablet 10 mg PO DAILY #30 tab 11/21/18 04/28/20 insulin glargine 100 unit/mL 15 units SQ HS ml 11/21/18 04/28/20 subcutaneous solution insulin syringe-needle U-100 0.3 #10 ea 11/21/18 03/27/20 mL 31 gauge x 5/16" lancets #50 ea 11/21/18 03/27/20 levocetirizine 5 mg tablet 5 mg PO DAILY 11/21/18 04/28/20 metoprolol tartrate 25 mg tablet 25 mg PO BID #60 tab 11/21/18 04/28/20 montelukast 10 mg tablet 10 mg PO DAILY #90 tab 11/21/18 04/28/20 multivitamin 1 tab PO DAILY 11/21/18 04/28/20 mycophenolate mofetil 250 mg 1,000 mg PO BID cap 11/21/18 04/28/20 capsule pravastatin 80 mg tablet 80 mg PO DAILY 03/20/19 04/28/20 aspirin 81 mg PO DAILY 04/22/20 04/28/20 tacrolimus 5 mg PO Q12H 04/28/20 04/28/20 Previous Rx's Medication Instructions Recorded insulin lispro 100 unit/mL 80 units CONTINUOUS SUBCUTANEOUS 09/18/19 subcutaneous solution INFUSION DAILY 90 Days #72 ml blood sugar diagnostic #400 ea 12/10/19 levothyroxine 200 mcg tablet 200 mcg PO DAILY #90 tab 01/28/20 Results & Data (ED) Vital Signs Vital Signs - 24 hr 04/28/20 12:56 04/28/20 13:15 04/28/20 13:28 Temperature 38.0 C H Temperature Source Temporal Artery Scan Pulse Rate 80 77 Pulse Rate from SpO2 Sensor 78 Respiratory Rate 18 21 Respiratory Effort / Characteristics Non-Labored Spontaneous Respiratory Depth Normal Respiratory Pattern Regular Blood Pressure 149/74 H Blood Pressure Mean 99 Pulse Oximetry 93 89 L 94 Oxygen Delivery Method Room Air Room Air Room Air Sepsis Recent Fever Within 48 Hours No Sepsis New/Unexplained Change in Mental Status No Sepsis Action Taken by Nursing No Action Required 04/28/20 13:30 04/28/20 13:36 04/28/20 13:40 Temperature Temperature Source Pulse Rate 80 83 79 Pulse Rate from SpO2 Sensor 80 82 79 Respiratory Rate 18 22 17 Respiratory Effort / Characteristics Respiratory Depth Respiratory Pattern Blood Pressure 154/95 H Blood Pressure Mean 114 Pulse Oximetry 93 93 93 Oxygen Delivery Method Room Air Room Air Room Air Sepsis Recent Fever Within 48 Hours Sepsis New/Unexplained Change in Mental Status Sepsis Action Taken by Nursing 04/28/20 13:44 04/28/20 13:50 04/28/20 14:00 Temperature Temperature Source Pulse Rate 79 79 Pulse Rate from SpO2 Sensor 79 80 Respiratory Rate 24 19 Respiratory Effort / Characteristics Non-Labored Respiratory Depth Normal Respiratory Pattern Regular Blood Pressure 161/70 H Blood Pressure Mean 100 Pulse Oximetry 93 95 Oxygen Delivery Method Room Air Room Air Room Air Sepsis Recent Fever Within 48 Hours Sepsis New/Unexplained Change in Mental Status Sepsis Action Taken by Nursing 04/28/20 14:01 04/28/20 14:10 04/28/20 14:20 Temperature Temperature Source Pulse Rate 81 87 78 Pulse Rate from SpO2 Sensor 81 85 78 Respiratory Rate 18 21 17 Respiratory Effort / Characteristics Respiratory Depth Respiratory Pattern Blood Pressure Blood Pressure Mean Pulse Oximetry 94 94 93 Oxygen Delivery Method Room Air Room Air Room Air Sepsis Recent Fever Within 48 Hours Sepsis New/Unexplained Change in Mental Status Sepsis Action Taken by Nursing 04/28/20 14:30 04/28/20 14:31 04/28/20 14:40 Temperature Temperature Source Pulse Rate 84 83 81 Pulse Rate from SpO2 Sensor 85 83 81 Respiratory Rate 23 17 19 Respiratory Effort / Characteristics Respiratory Depth Respiratory Pattern Blood Pressure 169/80 H Blood Pressure Mean 109 Pulse Oximetry 94 94 95 Oxygen Delivery Method Room Air Room Air Room Air Sepsis Recent Fever Within 48 Hours Sepsis New/Unexplained Change in Mental Status Sepsis Action Taken by Nursing 04/28/20 14:50 04/28/20 15:00 04/28/20 15:01 Temperature Temperature Source Pulse Rate 79 77 76 Pulse Rate from SpO2 Sensor 79 77 77 Respiratory Rate 18 25 H 24 Respiratory Effort / Characteristics Respiratory Depth Respiratory Pattern Blood Pressure 163/84 H Blood Pressure Mean 110 Pulse Oximetry 94 93 94 Oxygen Delivery Method Room Air Room Air Room Air Sepsis Recent Fever Within 48 Hours Sepsis New/Unexplained Change in Mental Status Sepsis Action Taken by Nursing 04/28/20 15:10 04/28/20 15:20 04/28/20 15:30 Temperature Temperature Source Pulse Rate 81 78 75 Pulse Rate from SpO2 Sensor 82 78 75 Respiratory Rate 18 22 18 Respiratory Effort / Characteristics Respiratory Depth Respiratory Pattern Blood Pressure 155/81 H Blood Pressure Mean 105 Pulse Oximetry 93 94 94 Oxygen Delivery Method Room Air Room Air Room Air Sepsis Recent Fever Within 48 Hours Sepsis New/Unexplained Change in Mental Status Sepsis Action Taken by Nursing 04/28/20 15:31 04/28/20 15:40 04/28/20 15:50 Temperature Temperature Source Pulse Rate 74 75 74 Pulse Rate from SpO2 Sensor 74 76 74 Respiratory Rate 17 22 32 H Respiratory Effort / Characteristics Respiratory Depth Respiratory Pattern Blood Pressure Blood Pressure Mean Pulse Oximetry 93 94 92 Oxygen Delivery Method Room Air Room Air Room Air Sepsis Recent Fever Within 48 Hours Sepsis New/Unexplained Change in Mental Status Sepsis Action Taken by Nursing 04/28/20 16:00 Temperature Temperature Source Pulse Rate 78 Pulse Rate from SpO2 Sensor 78 Respiratory Rate 28 H Respiratory Effort / Characteristics Respiratory Depth Respiratory Pattern Blood Pressure Blood Pressure Mean Pulse Oximetry 94 Oxygen Delivery Method Room Air Sepsis Recent Fever Within 48 Hours Sepsis New/Unexplained Change in Mental Status Sepsis Action Taken by Nursing Laboratory Data Result diagrams: 04/28/20 13:36 04/28/20 13:36 Lab Results 04/28/20 04/28/20 04/28/20 Range/Units 13:36 13:36 13:36 WBC 7.91 (4.8-10.8) K/uL RBC 4.14 L (4.7-6.1) M/uL Hgb 12.5 L (14.0-18.0) g/dL Hct 37.3 L (42-52) % MCV 90.1 (80-100) fL MCH 30.2 (25-34) pg MCHC 33.5 (32-36) g/dL RDW Std Deviation 43.6 (36.4-46.3) fL RDW Coeff of Tete 13.3 (11.5-14.5) % Plt Count 224 (130-400) K/uL MPV 10.8 H (7.4-10.4) fL Immature Gran % (Auto) 0.4 % Neut % (Auto) 87.3 % Lymph % (Auto) 5.9 % Wolfe % (Auto) 6.3 % Eos % (Auto) 0.1 % Baso % (Auto) 0.0 % Neut # (Auto) 6.90 H (1.4-6.5) K/uL Lymph # (Auto) 0.47 L (1.2-3.4) K/uL Wolfe # (Auto) 0.50 (0.11-0.59) K/uL Eos # (Auto) 0.01 (0-0.5) K/uL Baso # (Auto) 0.00 (0-0.2) K/uL Immature Gran # (Auto) 0.03 H (0.00-0.02) K/uL D-Dimer 850 H* (0-500) ug/L FEU Sodium 137 (136-145) mmol/L Potassium 4.4 (3.5-5.1) mmol/L Chloride 105 (98-107) mmol/L Carbon Dioxide 24 (21-32) mmol/L Anion Gap 8.0 (3-11) BUN 19 H (7-18) mg/dl Creatinine 1.50 H (0.6-1.4) mg/dl Est Cr Clr Drug Dosing 59.8 ml/min Est GFR ( Amer) 61.2 Est GFR (Non-Af Amer) 52.8 BUN/Creatinine Ratio 12.8 (10-20) Glucose 207 H (70-99) mg/dl Calcium 9.6 (8.5-10.1) mg/dl Total Bilirubin 0.6 (0.2-1) mg/dl AST 16 (15-37) U/L ALT 32 (12-78) U/L Alkaline Phosphatase 62 (45-117) U/L Troponin I < 0.015 (0-0.045) ng/ml Total Protein 7.2 (6.4-8.2) gm/dl Albumin 3.0 L (3.4-5.0) gm/dl Globulin 4.2 H (2.5-4.0) gm/dl Albumin/Globulin Ratio 0.7 L (0.9-2) Lipase 89 (73-393) U/L Administered Medications Discontinued Medications Acetaminophen (Acetaminophen 500 Mg Tab) 1,000 mg PO NOW STA Stop: 04/28/20 15:38 Last Admin: 04/28/20 16:01 Dose: 1,000 mg Documented by: [id number] Dexamethasone (Dexamethasone Sod Inj 10 Mg/Ml Vial) 6 mg IV NOW ONE Stop: 04/28/20 13:09 Last Admin: 04/28/20 13:36 Dose: 6 mg Documented by: [id number] Discharge Plan Visit Data Chief Complaint: Shortness of Breath/Dyspnea Stated Complaint: covid+, sob ED Provider: Zhao Raines Discharge Problem: Pneumonia due to 2019-nCoV, Hypoxia Discharge Instructions Interventions: ED Discharge Assessment Last Done: 04/28/20 17:37
[2020-04-28 13:45] LABS: Eosinophils # (auto) 0.01 K/uL (0-0.5); Eosinophils % (auto) 0.1 %; Hematocrit (blood only) 37.3 % (42-52); Hemoglobin 12.5 g/dL (14.0-18.0); Immature Granulocytes # (auto) 0.03 K/uL (0.00-0.02); Immature Granulocytes % (auto) 0.4 %; Lymphocytes # (auto) 0.47 K/uL (1.2-3.4); Lymphocytes % (auto) 5.9 %; Mean Corpuscular Hemoglobin 30.2 pg (25-34); Mean Corpuscular Hgb Conc 33.5 g/dL (32-36); Mean Corpuscular Volume 90.1 fL (80-100); Mean Platelet Volume 10.8 fL (7.4-10.4); Monocytes % (auto) 6.3 %; Neutrophils % (auto) 87.3 %; Platelet Count 224 K/uL (130-400); RDW Coefficient of Variation 13.3 % (11.5-14.5); RDW Standard Deviation 43.6 fL (36.4-46.3); Red Blood Count 4.14 M/uL (4.7-6.1); White Blood Count 7.91 K/uL (4.8-10.8)
[2020-04-28 14:02] LABS: D Dimer 850 ug/L FEU (0-500)
[2020-04-28 14:03] LABS: Alanine Aminotransferase 32 U/L (12-78); Aspartate Aminotransferase 16 U/L (15-37); BUN Creatinine Ratio 12.8 (10-20); Blood Urea Nitrogen 19 mg/dl (7-18); Calcium 9.6 mg/dl (8.5-10.1); Carbon Dioxide 24 mmol/L (21-32); Chloride 105 mmol/L (98-107); Creatinine Clr Calc Pharmacy 59.8 ml/min; Est GFR (African American) 61.2; Est GFR (Non-African American) 52.8; Glucose 207 mg/dl (70-99); Lipase 89 U/L (73-393); Potassium 4.4 mmol/L (3.5-5.1); Sodium 137 mmol/L (136-145)
[2020-04-28 14:08] LABS: Albumin Globulin Ratio 0.7 (0.9-2); Alkaline Phosphatase 62 U/L (45-117); Bilirubin,Total 0.6 mg/dl (0.2-1); Globulin 4.2 gm/dl (2.5-4.0); Total Protein 7.2 gm/dl (6.4-8.2); Troponin I < 0.015 ng/ml (0-0.045)
--- NOTE | 2020-04-28 14:11 | XRay Report ---
XR chest 1V portable CLINICAL HISTORY: Atypical chest pain COMPARISON STUDY: 04/25/2020 FINDINGS: The heart is mildly enlarged. There is slight progression in the bilateral pulmonary airspa ce opacities suspicious for a multifocal pneumonia.[There are no significant pleural effusions. IMPRESSION: Slight progression in the bilateral pulmonary airspace opacities suspicious for a multifo maxine pneumonia ACT 112: Negative or not required by law. Electronically signed by: Albino Adams M.D. 04/28/2020 2:09 PM
[2020-04-28] MEDS ORDERED: ACETAMINOPHEN 500 MG TAB PO STA (15:37)
--- NOTE | 2020-04-28 15:45 | History & Physical Report ---
Date of Service April 28, 2020 Assessment & Plan (1) COVID-19: Pneumonia seen on chest x-ray reports hypoxia at home worsening dyspnea on exertion here patient with severe percent dexamethasone convalescent plasma. Respiration rate is 20% with possible acute respiratory failure with hypoxia (2) Type 1 diabetes mellitus with retinopathy, with long-term current use of insulin: Patient typically on glargine plus an insulin pump. Given the fact and obesity dexamethasone will hold his insulin pump and continue sliding scale insulin with glycemic management oversight as well as continue glargine (3) Status post kidney transplant: Spoke to student teaching coordinator continuing tacrolimus and mycophenolate as ordered His creatinine is stable at 1.5 this typically is ranged with the covers about (4) Hypertension: Patient is on amlodipine and metoprolol be to be continued (5) Hypothyroidism: Synthroid 200 with recent TSH and T4 check showing good repletion (6) DVT prophylaxis: 1 5 subcu twice daily for Covid DVT prevention History of Present Illness Primary Care Provider: Ilya Hooks MD Patient is a 50-year-old male with history of renal transplant at [facility] and longstanding type 1 diabetes who presents with Covid pneumonia. Patient began having symptoms however at first, presented on April 22 problem with diarrhea congestion shortness of breath. Not hypoxic. Patient states however at home he was 87% however he was not hypoxic here he is markedly dyspneic with exertion and he states that he persists to be 87% at home with exertion. He does have progression of chest x-ray from the second till today the eighth with increased interstitial infiltrates consistent with multifocal inflammation. I did personally call student teaching coordinator [facility] who he had no recommendations to adjust any of his rejection medications as long as his renal function is stable and has no limitations on any of the Covid related treatment such as remdesivir dexamethasone or convalescent plasma Allergies Allergy/AdvReac Type Severity Reaction Status Date / Time milk Allergy Unknown Unknown Verified 04/28/20 14:19 cyclobenzaprine AdvReac Mild FELT Verified 04/28/20 14:19 "AWFUL" Home Medications Medication Instructions Recorded Confirmed Type amlodipine 10 mg tablet 10 mg PO DAILY #30 tab 11/21/18 04/28/20 History insulin glargine 100 unit/mL 15 units SQ HS ml 11/21/18 04/28/20 History subcutaneous solution insulin syringe-needle U-100 0.3 #10 ea 11/21/18 03/27/20 History mL 31 gauge x 5/16" lancets #50 ea 11/21/18 03/27/20 History levocetirizine 5 mg tablet 5 mg PO DAILY 11/21/18 04/28/20 History metoprolol tartrate 25 mg tablet 25 mg PO BID #60 tab 11/21/18 04/28/20 History montelukast 10 mg tablet 10 mg PO DAILY #90 tab 11/21/18 04/28/20 History multivitamin 1 tab PO DAILY 11/21/18 04/28/20 History mycophenolate mofetil 250 mg 1,000 mg PO BID cap 11/21/18 04/28/20 History capsule pravastatin 80 mg tablet 80 mg PO DAILY 03/20/19 04/28/20 History insulin lispro 100 unit/mL 80 units CONTINUOUS SUBCUTANEOUS 09/18/19 04/28/20 Rx subcutaneous solution INFUSION DAILY 90 Days #72 ml blood sugar diagnostic #400 ea 12/10/19 03/27/20 Rx levothyroxine 200 mcg tablet 200 mcg PO DAILY #90 tab 01/28/20 04/28/20 Rx aspirin 81 mg PO DAILY 04/22/20 04/28/20 History tacrolimus 5 mg PO Q12H 04/28/20 04/28/20 History Past Med/Surg History Medical History Back pain End-stage renal disease on hemodialysis ESRD (end stage renal disease) on dialysis Hypercholesteremia Intractable back pain Surgical History H/O arthroscopic knee surgery S/P cholecystectomy S/P lumbar laminectomy "09/[address] Talbert" Social History Smoking Status: Never smoker Hx Alcohol Use: No Preferred Language: Chilean Communication Ability: Effective marital status: Current Living Situation: Spouse current occupational status: employed current occupation: [employer] services Feels Safe at Home: Yes Review of Systems Review of Systems: Mild distress and fatigue no headache, blurry or double vision no speech or swallowing issues no loss of taste or smell no pleuritic chest pain, pressure or palpitations Is not breath especially with exertion no abdominal pain, nausea or vomiting, persistent diarrhea no dysuria, hematuria or frequency no focal joint pain or swelling no back pain, CVA tenderness or radicular pain no bruising, bleeding or rashes no focal signs of weakness or numbness or altered sensation no complaints of anxiety or depression.. Physical Exam Physical Exam: The patient appeared well nourished and normally developed. Vital signs as documented. Head exam is normocephalic atraumatic no scleral icterus Neck is without JVD, thyromegaly, or carotid bruits. Lungs are coarse bibasilar rales Cardiac exam, Rhythm is regular.. No murmurs, rubs or gallops. Abdominal exam reveals normal bowel sounds, soft non tender, no masses Extremities are nonedematous and both pedal pulses are present Neurologic exam is alert and oriented, no focal loss of strength or sensation Skin is without bruises or rashes well-healed mid thoracic scar from spinal surgery is present Psychologically is without concerns for anxiety or depression Results & Data Results & Data ([facility]) Vital Signs (Past 12 Hours) Vital Signs Temp Pulse Resp BP Pulse Ox 04/28/20 15:10 81 18 93 04/28/20 15:01 76 24 94 04/28/20 15:00 77 25 H 163/84 H 93 04/28/20 14:50 79 18 94 04/28/20 14:40 81 19 95 04/28/20 14:31 83 17 94 04/28/20 14:30 84 23 169/80 H 94 04/28/20 14:20 78 17 93 04/28/20 14:10 87 21 94 04/28/20 14:01 81 18 94 04/28/20 14:00 79 19 161/70 H 95 04/28/20 13:50 79 24 93 04/28/20 13:40 79 17 93 04/28/20 13:36 83 22 154/95 H 93 04/28/20 13:30 80 18 93 04/28/20 13:28 77 21 94 04/28/20 13:15 89 L 04/28/20 12:56 100.4 F H 80 18 149/74 H 93 chest x-ray shows slight progression of bilateral pulmonary airspace opacities suspicious for multifocal pneumonia PG Care Time/CCT Total # of Minutes Spent Total Time Spent with Patient: Total time spent is greater than 50% in coordination of care (as documented) at patient's floor/unit and/or counseling patient: Coding Level of Care Code 57276 Initial Inpt Care Lvl 3 Diagnoses COVID-19 U07.1 Type 1 diabetes mellitus with retinopathy, with long-term current use of insulin E10.319 Status post kidney transplant Z94.0 Hypertension I10 Hypothyroidism E03.9 DVT prophylaxis Z29.9
--- NOTE | 2020-04-28 16:04 | Electrocardiogram Report ---
Test Reason : Blood Pressure : / mmHG Vent. Rate : 077 BPM Atrial Rate : 077 BPM P-R Int : 114 ms QRS Dur : 092 ms QT Int : 372 ms P-R-T Axes : 032 031 040 degrees QTc Int : 420 ms Normal sinus rhythm Normal ECG When compared with ECG of 22-APR-2020 14:58, No significant change was found Confirmed by Roscoe Eisenberg ([id number]) on 04/28/2020 4:04:21 PM Referred By: Confirmed By:Roscoe Eisenberg
[2020-04-28] MEDS ORDERED: GLUCAGON FOR INJ 1 MG VIAL SQ PRN (18:50)
[2020-04-28] MEDS ORDERED: GLUCOSE 10 TABS/TUBE PO PRN (18:50)
[2020-04-28] MEDS ORDERED: DEXAMETHASONE SOD INJ 10 MG/ML VIAL IV SCH (18:50)
[2020-04-28] MEDS ORDERED: CARBOHYDRATES FOR HYPOGLYCEMIA PO PRN (18:50)
[2020-04-28] MEDS ORDERED: GLUCOSE 40% GEL 15 GM TUBE PO PRN (18:50)
[2020-04-28] MEDS ORDERED: DEXTROSE 50% 50 ML SYRINGE IV PRN (18:50)
[2020-04-28] MEDS ORDERED: ONDANSETRON INJ 2 MG/ML 2 ML VIAL IV PRN (18:50)
[2020-04-28] MEDS ORDERED: PHARMACY GLYCEMIC MGMT CONSULT PRN (18:52)
[2020-04-28] MEDS ORDERED: REMDESIVIR 200 MG in SODIUM CHLORIDE 0.9% 210 ML IV ONE (19:30)
[2020-04-28] MEDS ORDERED: INSULIN GLARGINE SOLOSTAR 100 UNITS/ML 3 ML PEN SC ONE (20:00)
[2020-04-28] MEDS: MYCOPHENOLATE MOFETIL 250 MG CAP PO SCH (20:14)
[2020-04-28] MEDS: SODIUM CHLORIDE 0.9% 10ML FLUSH IV SCH (20:14)
[2020-04-28] MEDS: TACROLIMUS 1 MG CAP PO SCH (20:15)
[2020-04-28] MEDS: METOPROLOL TARTRATE 25 MG TAB PO SCH (20:16)
[2020-04-28] MEDS: ENOXAPARIN INJ 60 MG/0.6 ML SYR SQ SCH (20:16)
[2020-04-28] MEDS: INSULIN ASPART 100 UNITS/ML 3 ML PEN SC SCH ×2 (20:32→21:21)
[2020-04-29] MEDS: INSULIN ASPART 100 UNITS/ML 3 ML PEN SC SCH ×6 (00:08→21:13)
[2020-04-29] MEDS: LEVOTHYROXINE SODIUM 200 MCG TABLET PO SCH (06:17)
[2020-04-29 06:25] LABS: Estimated Average Glucose 180 mg/dl; Hemoglobin A1C 7.9 % (4.5-5.6)
[2020-04-29] MEDS: ASPIRIN 81 MG ECTAB PO SCH (08:30)
[2020-04-29] MEDS: MULTIVITAMIN TAB PO SCH (08:30)
[2020-04-29] MEDS: MONTELUKAST SODIUM 10 MG TABLET PO SCH (08:30)
[2020-04-29] MEDS: amLODIPine BESYLATE 5 MG TAB PO SCH (08:30)
[2020-04-29] MEDS: MYCOPHENOLATE MOFETIL 250 MG CAP PO SCH ×2 (08:31→20:25)
[2020-04-29] MEDS: dexAMETHasone 6 MG in SYRINGE 0 ML IV SCH (08:31)
[2020-04-29] MEDS: TACROLIMUS 1 MG CAP PO SCH ×2 (08:31→20:28)
[2020-04-29] MEDS: METOPROLOL TARTRATE 25 MG TAB PO SCH ×2 (08:31→20:25)
[2020-04-29] MEDS: ENOXAPARIN INJ 60 MG/0.6 ML SYR SQ SCH ×2 (08:32→20:33)
[2020-04-29 08:34] LABS: BUN Creatinine Ratio 21.5 (10-20); Calcium 9.4 mg/dl (8.5-10.1); Est GFR (African American) 69.5; Est GFR (Non-African American) 59.9; Potassium 4.3 mmol/L (3.5-5.1)
[2020-04-29] MEDS ORDERED: INSULIN GLARGINE SOLOSTAR 100 UNITS/ML 3 ML PEN SC ONE ×2 (09:00)
[2020-04-29] MEDS ORDERED: PRAVASTATIN SOD 40 MG TAB PO SCH (09:00)
--- NOTE | 2020-04-29 12:31 | Pharmacy Report ---
Pharmacy Glycemic Short Note 2 - Date of Service April 29, 2020 - Glycemic Short BSG Results (Last 24 hours): 04/28/20 04/28/20 04/29/20 13:36 19:45 00:04 Glucose 207 H POC Glucose 246 H 326 H* 04/29/20 04/29/20 04/29/20 04:07 05:50 07:38 Glucose 261 H POC Glucose 309 H* 192 H 04/29/20 11:46 Glucose POC Glucose 223 H OUTPATIENT ANTIDIABETIC REGIMEN: * Humalog pump TDD 67-77 units/day * A.9% 04/29/20 ASSESSMENT: * T1 diabetic admitted for COVID-19 pneumonia, receiving IV dexamethasone. Insulin pump turned off last night and transitioned to basal/bolus. * Patient is tolerating a diet * Will attempt to utilize mostly once daily lantus dosing. Morning dose of Lantus was stressed based on outpatient basal dose and IV steroid use/COVID pneumonia. Will add on a very conservative Lantus scale this evening to supplement morning dose if necessary. * BSG much improved this morning, will continue current novolog scale for today to gather more data before making further changes PLAN FOR INPATIENT GLYCEMIC CONTROL: * Hold outpatient oral diabetes medications * Basal insulin * Lantus 50 units SQ this morning * 0 or 10 units this evening based on BSG- See MAR for details * Bolus insulin * NovoLog per scale ACHS or Q6hrs while NPO and overnight checks * Goal Range: Low 110 mg/dL - High 140 mg/dL * Correction Factor: 15 mg/dL/unit * Nutritional / Prandial insulin per carb ratio of 1 unit per 5 grams CHO consumed
--- NOTE | 2020-04-29 16:56 | Hospitalist Progress Note ---
Date of Service April 29, 2020 Assessment & Plan (1) COVID-19: Pneumonia seen on chest x-ray, reports hypoxia at home to 87% with exertion Continues with significant ZAPATA here -continue dexamethasone, Remdesevir, and awaiting convalescent plasma (2) Type 1 diabetes mellitus with retinopathy, with long-term current use of insulin: Patient typically on glargine plus an insulin pump. With hyperglycemia here secondary to dexamethasone Glycemic control from pharmacy consultation is placed and they are managing with basal bolus insulin His insulin pump has been removed Hemoglobin A1c 7.9% (3) Status post kidney transplant: Spoke to hospital unit coordinator upon admission-okay to continue tacrolimus and mycophenolate as ordered His creatinine is stable at 1.5 this is around his baseline (4) Hypertension: Blood pressures are controlled Continue amlodipine and metoprolol (5) Hypothyroidism: TSH normal in 03/2020 -continue Synthroid 200 (6) GERD (gastroesophageal reflux disease): with exacerbation currently on decadron -start pepcid 20mg qhs (7) Gout: No acute issues (8) Hypercholesteremia: Continue pravastatin, aspirin (9) DVT prophylaxis: Lovenox Disposition-continued stay in PCU Admission and Anticipated Discharge Date Admission Date: April 28, 2020 Subjective Feeling better but still very SOB with minimal exertion. No chest pain , no nausea, is eating and drinking. Is having a lot of indigestion especially last night, acid brash in throat. Tele with NSR, rates 70s Review of Systems Review of Systems: All systems reviewed & are unremarkable except as noted in HPI & below Physical Exam Constitutional: WD/WN, vitals as above Eyes: + anicteric sclerae Neck: trachea midline, no thyromegaly Respiratory: normal respiratory effort, lungs clear to auscultation Cardiovascular: RRR, no murmur, no edema Chest (Breasts): Chest: normal inspection of chest Gastrointestinal (Abdomen): normal bowel sounds, soft, nontender, no hepatosplenomegaly Musculoskeletal: Extremities: extremities normal to inspection; no cyanosis and no clubbing Skin: no rashes, warm and dry Neurologic: moves all extremities and awake; no focal motor deficits Psychiatric: A+Ox3, euthymic affect Lymphatic: no lymphedema Results & Data Results & Data ([facility]) Vital Signs (Past 12 Hours) Vital Signs Temp Pulse Pulse Resp BP Pulse Ox 04/29/20 15:46 36.5 C 75 21 129/63 93 04/29/20 11:47 36.6 C 71 23 142/67 H 95 04/29/20 08:00 84 04/29/20 07:35 37.1 C 78 22 151/70 H 95 Laboratory Results 04/29/20 04/29/20 04/29/20 Range/Units 16:36 11:46 07:38 Sodium (136-145) mmol/L Potassium (3.5-5.1) mmol/L Chloride (98-107) mmol/L Carbon Dioxide (21-32) mmol/L Anion Gap (3-11) BUN (7-18) mg/dl Creatinine (0.6-1.4) mg/dl Est Cr Clr Drug Dosing ml/min Est GFR ( Amer) Est GFR (Non-Af Amer) BUN/Creatinine Ratio (10-20) Glucose (70-99) mg/dl POC Glucose 277 H 223 H 192 H (70-99) mg/dl Estimat Average Glucose mg/dl Hemoglobin A1c (4.5-5.6) % Calcium (8.5-10.1) mg/dl Blood Type Antibody Screen 04/29/20 04/29/20 04/29/20 Range/Units 05:50 05:48 04:07 Sodium 140 (136-145) mmol/L Potassium 4.3 (3.5-5.1) mmol/L Chloride 109 H (98-107) mmol/L Carbon Dioxide 22 (21-32) mmol/L Anion Gap 8.0 (3-11) BUN 29 H D (7-18) mg/dl Creatinine 1.35 (0.6-1.4) mg/dl Est Cr Clr Drug Dosing 67.0 ml/min Est GFR ( Amer) 69.5 Est GFR (Non-Af Amer) 59.9 BUN/Creatinine Ratio 21.5 H (10-20) Glucose 261 H (70-99) mg/dl POC Glucose 309 H* (70-99) mg/dl Estimat Average Glucose 180 mg/dl Hemoglobin A1c 7.9 H (4.5-5.6) % Calcium 9.4 (8.5-10.1) mg/dl Blood Type Antibody Screen 04/29/20 04/28/20 04/28/20 Range/Units 00:04 19:45 19:22 Sodium (136-145) mmol/L Potassium (3.5-5.1) mmol/L Chloride (98-107) mmol/L Carbon Dioxide (21-32) mmol/L Anion Gap (3-11) BUN (7-18) mg/dl Creatinine (0.6-1.4) mg/dl Est Cr Clr Drug Dosing ml/min Est GFR ( Amer) Est GFR (Non-Af Amer) BUN/Creatinine Ratio (10-20) Glucose (70-99) mg/dl POC Glucose 326 H* 246 H (70-99) mg/dl Estimat Average Glucose mg/dl Hemoglobin A1c (4.5-5.6) % Calcium (8.5-10.1) mg/dl Blood Type A Positive Antibody Screen NEGATIVE PG Care Time/CCT Total # of Minutes Spent Total Time Spent with Patient: Total time spent is greater than 50% in coordination of care (as documented) at patient's floor/unit and/or counseling patient: Coding Level of Care Code 53979 Subseq Hosp Care Lvl 3 Diagnoses COVID-19 U07.1 Type 1 diabetes mellitus with retinopathy, with long-term current use of insulin E10.319 Status post kidney transplant Z94.0 Hypertension I10 Hypothyroidism E03.9 GERD (gastroesophageal reflux disease) K21.9 Gout M10.9 Hypercholesteremia E78.00 DVT prophylaxis Z29.9
[2020-04-29] MEDS: REMDESIVIR 100 MG in SODIUM CHLORIDE 0.9% 230 ML IV SCH (20:12)
[2020-04-29] MEDS: PRAVASTATIN SOD 40 MG TAB PO SCH (20:27)
[2020-04-29] MEDS: SODIUM CHLORIDE 0.9% 10ML FLUSH IV SCH (20:30)
[2020-04-29] MEDS ORDERED: INSULIN GLARGINE SOLOSTAR 100 UNITS/ML 3 ML PEN SC SCH (21:00)
[2020-04-29] MEDS ORDERED: INSULIN HUMAN REGULAR PER UNIT 10 UNITS in SYRINGE 9.9 ML IV ONE (21:00)
[2020-04-29] MEDS ORDERED: FAMOTIDINE 20 MG in SYRINGE 3 ML IV SCH (21:00)
[2020-04-29] MEDS: LIDOCAINE 5% 1 PATCH TD SCH (23:52)
[2020-04-30] MEDS: INSULIN ASPART 100 UNITS/ML 3 ML PEN SC SCH ×6 (00:17→21:01)
[2020-04-30] MEDS: ACETAMINOPHEN 325 MG TAB PO PRN (04:27)
[2020-04-30] MEDS: LEVOTHYROXINE SODIUM 200 MCG TABLET PO SCH (05:20)
[2020-04-30] MEDS ORDERED: METOCLOPRAMIDE HCL INJ 5 MG/ML 2 ML VIAL IV ONE ×3 (05:41→21:45)
[2020-04-30 06:16] LABS: Hematocrit (blood only) 36.5 % (42-52); Hemoglobin 12.5 g/dL (14.0-18.0); Immature Granulocytes # (auto) 0.05 K/uL (0.00-0.02); Immature Granulocytes % (auto) 0.6 %; Lymphocytes # (auto) 0.31 K/uL (1.2-3.4); Lymphocytes % (auto) 3.5 %; Mean Corpuscular Hemoglobin 30.3 pg (25-34); Mean Corpuscular Hgb Conc 34.2 g/dL (32-36); Mean Corpuscular Volume 88.4 fL (80-100); Mean Platelet Volume 10.8 fL (7.4-10.4); Monocytes # (auto) 1.02 K/uL (0.11-0.59); Monocytes % (auto) 11.5 %; Neutrophils # (auto) 7.47 K/uL (1.4-6.5); Neutrophils % (auto) 84.4 %; Platelet Count 280 K/uL (130-400); RDW Standard Deviation 42.4 fL (36.4-46.3); Red Blood Count 4.13 M/uL (4.7-6.1); White Blood Count 8.85 K/uL (4.8-10.8)
[2020-04-30 06:54] LABS: Albumin Level 2.7 gm/dl (3.4-5.0); BUN Creatinine Ratio 32.3 (10-20); Calcium 9.2 mg/dl (8.5-10.1); Creatinine Clr Calc Pharmacy 71.8 ml/min; Est GFR (African American) 75.5; Est GFR (Non-African American) 65.1; Potassium 4.2 mmol/L (3.5-5.1)
[2020-04-30 06:57] LABS: Albumin Globulin Ratio 0.7 (0.9-2); Bilirubin,Total 0.5 mg/dl (0.2-1); Globulin 4.1 gm/dl (2.5-4.0); Total Protein 6.8 gm/dl (6.4-8.2)
[2020-04-30] MEDS: ENOXAPARIN INJ 60 MG/0.6 ML SYR SQ SCH ×2 (08:27→20:59)
[2020-04-30] MEDS: LIDOCAINE 5% 1 PATCH TD SCH (08:28)
[2020-04-30] MEDS: amLODIPine BESYLATE 5 MG TAB PO SCH (08:31)
[2020-04-30] MEDS: MULTIVITAMIN TAB PO SCH (08:31)
[2020-04-30] MEDS: MYCOPHENOLATE MOFETIL 250 MG CAP PO SCH ×2 (08:31→20:11)
[2020-04-30] MEDS: ASPIRIN 81 MG ECTAB PO SCH (08:31)
[2020-04-30] MEDS: METOPROLOL TARTRATE 25 MG TAB PO SCH ×2 (08:32→20:12)
[2020-04-30] MEDS: dexAMETHasone 6 MG in SYRINGE 0 ML IV SCH (08:32)
[2020-04-30] MEDS: TACROLIMUS 1 MG CAP PO SCH ×2 (08:32→20:59)
[2020-04-30] MEDS: INSULIN GLARGINE SOLOSTAR 100 UNITS/ML 3 ML PEN SC SCH (08:38)
[2020-04-30] MEDS: MONTELUKAST SODIUM 10 MG TABLET PO SCH (08:41)
[2020-04-30] MEDS ORDERED: MELATONIN 3 MG TAB PO PRN (10:23)
--- NOTE | 2020-04-30 13:26 | Pharmacy Report ---
Pharmacy Glycemic Short Note 2 - Date of Service April 30, 2020 - Glycemic Short BSG Results (Last 24 hours): 04/29/20 04/29/20 04/29/20 16:36 20:43 20:44 Glucose POC Glucose 277 H 362 H* 372 H* 04/30/20 04/30/20 04/30/20 00:02 04:43 05:37 Glucose 123 H POC Glucose 200 H 122 H 04/30/20 04/30/20 07:20 11:22 Glucose POC Glucose 133 H 207 H OUTPATIENT ANTIDIABETIC REGIMEN: * Humalog pump TDD 67-77 units/day * A.9% 04/29/20 ASSESSMENT: 04/30 * Fasting BSG well controlled today with 60 units of basal insulin. Will continue with 55 units Lantus daily * Post prandials were still significantly elevated yesterday, improved today after NovoLog scale was tightened last evening. Will monitor to see if further tightening is needed. * Diet was switched to a T1DM today to assist with glycemic control. * Patient remains on IV dexamethasone 04/29 * T1 diabetic admitted for COVID-19 pneumonia, receiving IV dexamethasone. Insulin pump turned off last night and transitioned to basal/bolus. * Patient is tolerating a diet * Will attempt to utilize mostly once daily lantus dosing. Morning dose of Lantus was stressed based on outpatient basal dose and IV steroid use/COVID pneumonia. Will add on a very conservative Lantus scale this evening to supplement morning dose if necessary. * BSG much improved this morning, will continue current novolog scale for today to gather more data before making further changes PLAN FOR INPATIENT GLYCEMIC CONTROL: * Hold outpatient oral diabetes medications * Basal insulin * Lantus 55 units SQ this morning * Bolus insulin * NovoLog per scale ACHS or Q6hrs while NPO and overnight checks * Goal Range: Low 110 mg/dL - High 140 mg/dL * Correction Factor: 12 mg/dL/unit * Nutritional / Prandial insulin per carb ratio of 1 unit per 4 grams CHO consumed
[2020-04-30] MEDS: REMDESIVIR 100 MG in SODIUM CHLORIDE 0.9% 230 ML IV SCH (20:09)
[2020-04-30] MEDS: PRAVASTATIN SOD 40 MG TAB PO SCH (20:10)
[2020-04-30] MEDS: FAMOTIDINE 20 MG TAB PO SCH (20:11)
--- NOTE | 2020-04-30 21:24 | Hospitalist Progress Note ---
Date of Service April 30, 2020 Assessment & Plan (1) COVID-19: Pneumonia seen on chest x-ray, reports hypoxia at home to 87% with exertion as well as here in the room Continues with significant ZAPATA here but slightly improved from previous -continue dexamethasone, Remdesevir, and has received convalescent plasma on the filling station attendant of 04/30 (2) Type 1 diabetes mellitus with retinopathy, with long-term current use of insulin: Patient typically on glargine plus an insulin pump. With hyperglycemia here secondary to dexamethasone which is now improved Glycemic control from pharmacy consultation is placed and they are managing with basal bolus insulin His insulin pump has been removed Hemoglobin A1c 7.9% (3) Status post kidney transplant: Admitting hospitalist spoke to permit coordinator upon admission-okay to continue tacrolimus and mycophenolate as ordered His creatinine is improved from admission at 1.26 Follow BMP Follow urine output (4) Hypertension: Blood pressures are controlled Continue amlodipine and metoprolol (5) Hypothyroidism: TSH normal in 03/2020 -continue Synthroid 200 (6) GERD (gastroesophageal reflux disease): with exacerbation currently on decadron, now improved with starting Pepcid -Continue pepcid 20mg qhs (7) Gout: No acute issues (8) Hypercholesteremia: Continue pravastatin, aspirin (9) Hallucinations: Had visual and auditory hallucinations that his cats were in his room- likely secondary to IV Decadron as well as very poor sleep and acute illness Supportive care and continue to treat underlying issues Encourage sleep-we will start melatonin 3 mg at bedtime as needed insomnia Not bothersome to him, no need to treat (10) Hiccups: Reglan worked well for him-continue as needed (11) DVT prophylaxis: Lovenox Disposition-continued stay in PCU Admission and Anticipated Discharge Date Admission Date: April 28, 2020 Subjective Patient feeling a little bit better today, but still short of breath and pulse ox drops to 85% with walking across the room. Still having some loose stools, no abdominal pains. No nausea. He is eating well. His acid reflux is much improved last night, however he has been having some hiccups which were greatly relieved with 1 dose of Reglan this morning. Also he reports thinking that he saw his house cats in his room last night but knew that it was not real. He also reported hearing his cats scratch on the curtains like they do at home but also knew that that was not real. He did not get much sleep at all last night as he was up frequently with getting his convalescent plasma and did not get much sleep. Telemetry with normal sinus rhythm, normal rates Review of Systems Review of Systems: All systems reviewed & are unremarkable except as noted in HPI & below Physical Exam Constitutional: WD/WN, vitals as above Eyes: + anicteric sclerae Neck: trachea midline, no thyromegaly Respiratory: normal respiratory effort, lungs clear to auscultation Cardiovascular: RRR, no murmur, no edema Chest (Breasts): Chest: normal inspection of chest Gastrointestinal (Abdomen): normal bowel sounds, soft, nontender, no hepatosplenomegaly Musculoskeletal: Extremities: extremities normal to inspection; no cyanosis and no clubbing Skin: no rashes, warm and dry Neurologic: moves all extremities and awake; no focal motor deficits Psychiatric: A+Ox3, euthymic affect Lymphatic: no lymphedema Results & Data Results & Data ([facility]) Vital Signs (Past 12 Hours) Vital Signs Temp Pulse Pulse Resp BP Pulse Ox Pulse Ox 04/30/20 19:00 37.1 C 74 23 141/67 H 94 04/30/20 18:39 94 04/30/20 15:34 36.8 C 67 19 154/73 H 94 04/30/20 15:00 63 04/30/20 11:04 36.5 C 62 19 138/71 95 Laboratory Results 04/30/20 04/30/20 04/30/20 Range/Units 20:33 16:27 11:22 WBC (4.8-10.8) K/uL RBC (4.7-6.1) M/uL Hgb (14.0-18.0) g/dL Hct (42-52) % MCV (80-100) fL MCH (25-34) pg MCHC (32-36) g/dL RDW Std Deviation (36.4-46.3) fL RDW Coeff of Tete (11.5-14.5) % Plt Count (130-400) K/uL MPV (7.4-10.4) fL Immature Gran % (Auto) % Neut % (Auto) % Lymph % (Auto) % [place]imble % (Auto) % Eos % (Auto) % Baso % (Auto) % Neut # (Auto) (1.4-6.5) K/uL Lymph # (Auto) (1.2-3.4) K/uL Tr[place]ble # (Auto) (0.11-0.59) K/uL Eos # (Auto) (0-0.5) K/uL Baso # (Auto) (0-0.2) K/uL Immature Gran # (Auto) (0.00-0.02) K/uL Sodium (136-145) mmol/L Potassium (3.5-5.1) mmol/L Chloride (98-107) mmol/L Carbon Dioxide (21-32) mmol/L Anion Gap (3-11) BUN (7-18) mg/dl Creatinine (0.6-1.4) mg/dl Est Cr Clr Drug Dosing ml/min Est GFR ( Amer) Est GFR (Non-Af Amer) BUN/Creatinine Ratio (10-20) Glucose (70-99) mg/dl POC Glucose 259 H 239 H 207 H (70-99) mg/dl Calcium (8.5-10.1) mg/dl Total Bilirubin (0.2-1) mg/dl AST (15-37) U/L ALT (12-78) U/L Alkaline Phosphatase (45-117) U/L Total Protein (6.4-8.2) gm/dl Albumin (3.4-5.0) gm/dl Globulin (2.5-4.0) gm/dl Albumin/Globulin Ratio (0.9-2) 04/30/20 04/30/20 04/30/20 Range/Units 07:20 05:37 05:37 WBC 8.85 (4.8-10.8) K/uL RBC 4.13 L (4.7-6.1) M/uL Hgb 12.5 L (14.0-18.0) g/dL Hct 36.5 L (42-52) % MCV 88.4 (80-100) fL MCH 30.3 (25-34) pg MCHC 34.2 (32-36) g/dL RDW Std Deviation 42.4 (36.4-46.3) fL RDW Coeff of Tete 13.0 (11.5-14.5) % Plt Count 280 (130-400) K/uL MPV 10.8 H (7.4-10.4) fL Immature Gran % (Auto) 0.6 % Neut % (Auto) 84.4 % Lymph % (Auto) 3.5 % Trimble % (Auto) 11.5 % Eos % (Auto) 0.0 % Baso % (Auto) 0.0 % Neut # (Auto) 7.47 H (1.4-6.5) K/uL Lymph # (Auto) 0.31 L (1.2-3.4) K/uL Trimble # (Auto) 1.02 H (0.11-0.59) K/uL Eos # (Auto) 0.00 (0-0.5) K/uL Baso # (Auto) 0.00 (0-0.2) K/uL Immature Gran # (Auto) 0.05 H (0.00-0.02) K/uL Sodium 142 (136-145) mmol/L Potassium 4.2 (3.5-5.1) mmol/L Chloride 111 H (98-107) mmol/L Carbon Dioxide 23 (21-32) mmol/L Anion Gap 8.0 (3-11) BUN 41 H (7-18) mg/dl Creatinine 1.26 (0.6-1.4) mg/dl Est Cr Clr Drug Dosing 71.8 ml/min Est GFR ( Amer) 75.5 Est GFR (Non-Af Amer) 65.1 BUN/Creatinine Ratio 32.3 H (10-20) Glucose 123 H (70-99) mg/dl POC Glucose 133 H (70-99) mg/dl Calcium 9.2 (8.5-10.1) mg/dl Total Bilirubin 0.5 (0.2-1) mg/dl AST 21 (15-37) U/L ALT 41 (12-78) U/L Alkaline Phosphatase 66 (45-117) U/L Total Protein 6.8 (6.4-8.2) gm/dl Albumin 2.7 L (3.4-5.0) gm/dl Globulin 4.1 H (2.5-4.0) gm/dl Albumin/Globulin Ratio 0.7 L (0.9-2) 04/30/20 04/30/20 Range/Units 04:43 00:02 WBC (4.8-10.8) K/uL RBC (4.7-6.1) M/uL Hgb (14.0-18.0) g/dL Hct (42-52) % MCV (80-100) fL MCH (25-34) pg MCHC (32-36) g/dL RDW Std Deviation (36.4-46.3) fL RDW Coeff of Tete (11.5-14.5) % Plt Count (130-400) K/uL MPV (7.4-10.4) fL Immature Gran % (Auto) % Neut % (Auto) % Lymph % (Auto) % [place] % (Auto) % Eos % (Auto) % Baso % (Auto) % Neut # (Auto) (1.4-6.5) K/uL Lymph # (Auto) (1.2-3.4) K/uL Tr[place]ble # (Auto) (0.11-0.59) K/uL Eos # (Auto) (0-0.5) K/uL Baso # (Auto) (0-0.2) K/uL Immature Gran # (Auto) (0.00-0.02) K/uL Sodium (136-145) mmol/L Potassium (3.5-5.1) mmol/L Chloride (98-107) mmol/L Carbon Dioxide (21-32) mmol/L Anion Gap (3-11) BUN (7-18) mg/dl Creatinine (0.6-1.4) mg/dl Est Cr Clr Drug Dosing ml/min Est GFR ( Amer) Est GFR (Non-Af Amer) BUN/Creatinine Ratio (10-20) Glucose (70-99) mg/dl POC Glucose 122 H 200 H (70-99) mg/dl Calcium (8.5-10.1) mg/dl Total Bilirubin (0.2-1) mg/dl AST (15-37) U/L ALT (12-78) U/L Alkaline Phosphatase (45-117) U/L Total Protein (6.4-8.2) gm/dl Albumin (3.4-5.0) gm/dl Globulin (2.5-4.0) gm/dl Albumin/Globulin Ratio (0.9-2) PG Care Time/CCT Total # of Minutes Spent Total Time Spent with Patient: Total time spent is greater than 50% in coordination of care (as documented) at patient's floor/unit and/or counseling patient: Coding Level of Care Code 93038 Subseq Hosp Care Lvl 3 Diagnoses COVID-19 U07.1 Type 1 diabetes mellitus with retinopathy, with long-term current use of insulin E10.319 Status post kidney transplant Z94.0 Hypertension I10 Hypothyroidism E03.9 GERD (gastroesophageal reflux disease) K21.9 Gout M10.9 Hypercholesteremia E78.00 Hallucinations R44.3 Hiccups R06.6 DVT prophylaxis Z29.9
[2020-04-30] MEDS: SODIUM CHLORIDE 0.9% 10ML FLUSH IV SCH (21:54)
[2020-05-01] MEDS: INSULIN ASPART 100 UNITS/ML 3 ML PEN SC SCH ×6 (00:10→20:52)
[2020-05-01] MEDS: LEVOTHYROXINE SODIUM 200 MCG TABLET PO SCH (05:37)
[2020-05-01 06:28] LABS: Hematocrit (blood only) 38.3 % (42-52); Hemoglobin 13.1 g/dL (14.0-18.0); Immature Granulocytes # (auto) 0.09 K/uL (0.00-0.02); Immature Granulocytes % (auto) 0.9 %; Lymphocytes # (auto) 0.84 K/uL (1.2-3.4); Lymphocytes % (auto) 8.8 %; Mean Corpuscular Hemoglobin 30.4 pg (25-34); Mean Corpuscular Hgb Conc 34.2 g/dL (32-36); Mean Corpuscular Volume 88.9 fL (80-100); Mean Platelet Volume 11.1 fL (7.4-10.4); Monocytes # (auto) 0.34 K/uL (0.11-0.59); Monocytes % (auto) 3.6 %; Neutrophils # (auto) 8.23 K/uL (1.4-6.5); Neutrophils % (auto) 86.7 %; Platelet Count 300 K/uL (130-400); RDW Coefficient of Variation 13.1 % (11.5-14.5); RDW Standard Deviation 42.5 fL (36.4-46.3); Red Blood Count 4.31 M/uL (4.7-6.1)
[2020-05-01 07:22] LABS: Albumin Level 2.9 gm/dl (3.4-5.0); BUN Creatinine Ratio 31.6 (10-20); Calcium 8.9 mg/dl (8.5-10.1); Creatinine Clr Calc Pharmacy 71.4 ml/min; Est GFR (African American) 74.8; Est GFR (Non-African American) 64.5; Potassium 4.3 mmol/L (3.5-5.1)
[2020-05-01 07:23] LABS: Albumin Globulin Ratio 0.7 (0.9-2); Bilirubin,Total 0.6 mg/dl (0.2-1); Globulin 4.2 gm/dl (2.5-4.0); Total Protein 7.1 gm/dl (6.4-8.2)
[2020-05-01] MEDS: dexAMETHasone 6 MG in SYRINGE 0 ML IV SCH (07:29)
[2020-05-01] MEDS: ACETAMINOPHEN 325 MG TAB PO PRN (07:29)
[2020-05-01] MEDS: amLODIPine BESYLATE 5 MG TAB PO SCH (07:30)
[2020-05-01] MEDS: MYCOPHENOLATE MOFETIL 250 MG CAP PO SCH ×2 (07:30→21:04)
[2020-05-01] MEDS: ENOXAPARIN INJ 60 MG/0.6 ML SYR SQ SCH ×2 (07:30→21:04)
[2020-05-01] MEDS: METOPROLOL TARTRATE 25 MG TAB PO SCH ×2 (07:30→21:03)
[2020-05-01] MEDS: MULTIVITAMIN TAB PO SCH (07:30)
[2020-05-01] MEDS: ASPIRIN 81 MG ECTAB PO SCH (07:30)
[2020-05-01] MEDS: MONTELUKAST SODIUM 10 MG TABLET PO SCH (07:31)
[2020-05-01] MEDS: PRAVASTATIN SOD 40 MG TAB PO SCH (07:31)
[2020-05-01] MEDS: TACROLIMUS 1 MG CAP PO SCH ×2 (08:04→21:04)
[2020-05-01] MEDS: INSULIN GLARGINE SOLOSTAR 100 UNITS/ML 3 ML PEN SC SCH (08:04)
[2020-05-01] MEDS: LIDOCAINE 5% 1 PATCH TD SCH (09:29)
--- NOTE | 2020-05-01 11:53 | Pharmacy Report ---
Pharmacy Glycemic Short Note 2 - Date of Service May 01, 2020 - Glycemic Short BSG Results (Last 24 hours): 04/30/20 04/30/20 04/30/20 16:27 20:33 23:58 Glucose POC Glucose 239 H 259 H 158 H 05/01/20 05/01/20 05/01/20 04:11 05:53 07:36 Glucose 121 H POC Glucose 126 H 141 H 05/01/20 11:36 Glucose POC Glucose 203 H OUTPATIENT ANTIDIABETIC REGIMEN: * Humalog pump TDD 67-77 units/day * A.9% 04/29/20 ASSESSMENT: 05/01 * Fasting BSG remains well controlled on 55 units of basal insulin * Novolog scale tightened again last evening. Will monitor the postprandial eff ects of this change throughout the day today before making further changes. * Patient remains on steroids and is tolerating a diet. 04/30 * Fasting BSG well controlled today with 60 units of basal insulin. Will continue with 55 units Lantus daily * Post prandials were still significantly elevated yesterday, improved today after NovoLog scale was tightened last evening. Will monitor to see if further tightening is needed. * Diet was switched to a T1DM today to assist with glycemic control. * Patient remains on IV dexamethasone 04/29 * T1 diabetic admitted for COVID-19 pneumonia, receiving IV dexamethasone. Insulin pump turned off last night and transitioned to basal/bolus. * Patient is tolerating a diet * Will attempt to utilize mostly once daily lantus dosing. Morning dose of Lantus was stressed based on outpatient basal dose and IV steroid use/COVID pneumonia. Will add on a very conservative Lantus scale this evening to supplement morning dose if necessary. * BSG much improved this morning, will continue current novolog scale for today to gather more data before making further changes PLAN FOR INPATIENT GLYCEMIC CONTROL: * Hold outpatient oral diabetes medications * Basal insulin * Lantus 55 units SQ this morning * Bolus insulin * NovoLog per scale ACHS or Q6hrs while NPO and overnight checks * Goal Range: Low 100 mg/dL - High 140 mg/dL * Correction Factor: 10 mg/dL/unit * Nutritional / Prandial insulin per carb ratio of 1 unit per 3 grams CHO consumed
[2020-05-01] MEDS ORDERED: BACLOFEN 10 MG TAB PO PRN (17:54)
--- NOTE | 2020-05-01 18:03 | Hospitalist Progress Note ---
Date of Service May 01, 2020 Assessment & Plan (1) COVID-19: Pneumonia seen on chest x-ray, reports hypoxia at home to 87% with exertion as well as here in the room ZAPATA is much improved today, pulse ox only dropped to 90% with ambulation -continue dexamethasone x10-day course -Continue Remdesevir x5-day course -received convalescent plasma on the early childhood specialist of 04/30 -We will perform two-step walk test prior to discharge to see if needs oxygen upon discharge (2) Type 1 diabetes mellitus with retinopathy, with long-term current use of insulin: Patient typically on glargine plus an insulin pump. With hyperglycemia here secondary to dexamethasone which is now improved Glycemic control from pharmacy consultation is placed and they are managing with basal bolus insulin His insulin pump has been removed Hemoglobin A1c 7.9% (3) Status post kidney transplant: Admitting hospitalist spoke to data entry coordinator upon admission-okay to continue tacrolimus and mycophenolate as ordered His creatinine is improved from admission at 1.26 Follow BMP Follow urine output (4) Hypertension: Blood pressures are fairly well controlled Continue amlodipine and metoprolol (5) Hypothyroidism: TSH normal in 03/2020 -continue Synthroid 200 (6) GERD (gastroesophageal reflux disease): with exacerbation currently on decadron, now resolved with starting Pepcid -Continue pepcid 20mg qhs (7) Gout: No acute issues (8) Hypercholesteremia: Continue pravastatin, aspirin (9) Hallucinations: Had visual and auditory hallucinations that his cats were in his room on the night of 04/29-likely secondary to IV Decadron as well as very poor sleep and acute illness Supportive care and continue to treat underlying issues Encourage sleep-started melatonin 3 mg at bedtime as needed for insomnia This issue seems to have resolved Not bothersome to him, no need to treat (10) Hiccups: Persistent, temporarily relieved with Reglan -Trial of baclofen as needed low-dose (11) DVT prophylaxis: Lovenox Disposition-continued stay in PCU, but improving, may be able to be discharged in the next 1 to 2 days Admission and Anticipated Discharge Date Admission Date: April 28, 2020 Subjective Patient feeling much better today like he is turning the corner. His pulse ox is only dropping to 90% with ambulation around the room and at times he has been up to 98% on his pulse ox with rest. He feels much less short of breath. His heartburn is completely resolved. He continues to have intermittent intractable hiccups that are temporarily relieved with Reglan. Denies nausea but appetite is still low. Still with loose stool but seems to be more well formed. Telemetry with sinus bradycardia normal sinus rhythm with rates in the 50s to 60s. Review of Systems Review of Systems: All systems reviewed & are unremarkable except as noted in HPI & below Physical Exam Constitutional: WD/WN, vitals as above Eyes: + anicteric sclerae Neck: trachea midline, no thyromegaly Respiratory: normal respiratory effort, lungs clear to auscultation Cardiovascular: RRR, no murmur, no edema Chest (Breasts): Chest: normal inspection of chest Gastrointestinal (Abdomen): normal bowel sounds, soft, nontender, no hepatosplenomegaly Musculoskeletal: Extremities: extremities normal to inspection; no cyanosis and no clubbing Skin: no rashes, warm and dry Neurologic: moves all extremities and awake; no focal motor deficits Psychiatric: A+Ox3, euthymic affect Lymphatic: no lymphedema Results & Data Results & Data ([facility]) Vital Signs (Past 12 Hours) Vital Signs Temp Pulse Pulse Resp BP Pulse Ox 05/01/20 15:11 36.6 C 61 20 149/69 H 96 05/01/20 15:00 64 05/01/20 11:07 36.8 C 63 20 131/65 95 05/01/20 10:00 99 H 05/01/20 07:22 36.8 C 64 20 152/75 H 94 05/01/20 06:18 62 Laboratory Results 05/01/20 05/01/20 05/01/20 Range/Units 16:46 11:36 07:36 WBC (4.8-10.8) K/uL RBC (4.7-6.1) M/uL Hgb (14.0-18.0) g/dL Hct (42-52) % MCV (80-100) fL MCH (25-34) pg MCHC (32-36) g/dL RDW Std Deviation (36.4-46.3) fL RDW Coeff of Tete (11.5-14.5) % Plt Count (130-400) K/uL MPV (7.4-10.4) fL Immature Gran % (Auto) % Neut % (Auto) % Lymph % (Auto) % [place] % (Auto) % Eos % (Auto) % Baso % (Auto) % Neut # (Auto) (1.4-6.5) K/uL Lymph # (Auto) (1.2-3.4) K/uL [place] # (Auto) (0.11-0.59) K/uL Eos # (Auto) (0-0.5) K/uL Baso # (Auto) (0-0.2) K/uL Immature Gran # (Auto) (0.00-0.02) K/uL Sodium (136-145) mmol/L Potassium (3.5-5.1) mmol/L Chloride (98-107) mmol/L Carbon Dioxide (21-32) mmol/L Anion Gap (3-11) BUN (7-18) mg/dl Creatinine (0.6-1.4) mg/dl Est Cr Clr Drug Dosing ml/min Est GFR ( Amer) Est GFR (Non-Af Amer) BUN/Creatinine Ratio (10-20) Glucose (70-99) mg/dl POC Glucose 253 H 203 H 141 H (70-99) mg/dl Calcium (8.5-10.1) mg/dl Magnesium (1.8-2.4) mg/dl Total Bilirubin (0.2-1) mg/dl AST (15-37) U/L ALT (12-78) U/L Alkaline Phosphatase (45-117) U/L Total Protein (6.4-8.2) gm/dl Albumin (3.4-5.0) gm/dl Globulin (2.5-4.0) gm/dl Albumin/Globulin Ratio (0.9-2) 05/01/20 05/01/20 05/01/20 Range/Units 05:53 05:53 04:11 WBC 9.50 (4.8-10.8) K/uL RBC 4.31 L (4.7-6.1) M/uL Hgb 13.1 L (14.0-18.0) g/dL Hct 38.3 L (42-52) % MCV 88.9 (80-100) fL MCH 30.4 (25-34) pg MCHC 34.2 (32-36) g/dL RDW Std Deviation 42.5 (36.4-46.3) fL RDW Coeff of Tete 13.1 (11.5-14.5) % Plt Count 300 (130-400) K/uL MPV 11.1 H (7.4-10.4) fL Immature Gran % (Auto) 0.9 % Neut % (Auto) 86.7 % Lymph % (Auto) 8.8 % [place] % (Auto) 3.6 % Eos % (Auto) 0.0 % Baso % (Auto) 0.0 % Neut # (Auto) 8.23 H (1.4-6.5) K/uL Lymph # (Auto) 0.84 L (1.2-3.4) K/uL [place] # (Auto) 0.34 (0.11-0.59) K/uL Eos # (Auto) 0.00 (0-0.5) K/uL Baso # (Auto) 0.00 (0-0.2) K/uL Immature Gran # (Auto) 0.09 H (0.00-0.02) K/uL Sodium 143 (136-145) mmol/L Potassium 4.3 (3.5-5.1) mmol/L Chloride 111 H (98-107) mmol/L Carbon Dioxide 24 (21-32) mmol/L Anion Gap 8.0 (3-11) BUN 40 H (7-18) mg/dl Creatinine 1.27 (0.6-1.4) mg/dl Est Cr Clr Drug Dosing 71.4 ml/min Est GFR ( Amer) 74.8 Est GFR (Non-Af Amer) 64.5 BUN/Creatinine Ratio 31.6 H (10-20) Glucose 121 H (70-99) mg/dl POC Glucose 126 H (70-99) mg/dl Calcium 8.9 (8.5-10.1) mg/dl Magnesium 2.0 (1.8-2.4) mg/dl Total Bilirubin 0.6 (0.2-1) mg/dl AST 23 (15-37) U/L ALT 50 (12-78) U/L Alkaline Phosphatase 74 (45-117) U/L Total Protein 7.1 (6.4-8.2) gm/dl Albumin 2.9 L (3.4-5.0) gm/dl Globulin 4.2 H (2.5-4.0) gm/dl Albumin/Globulin Ratio 0.7 L (0.9-2) 04/30/20 04/30/20 Range/Units 23:58 20:33 WBC (4.8-10.8) K/uL RBC (4.7-6.1) M/uL Hgb (14.0-18.0) g/dL Hct (42-52) % MCV (80-100) fL MCH (25-34) pg MCHC (32-36) g/dL RDW Std Deviation (36.4-46.3) fL RDW Coeff of Tete (11.5-14.5) % Plt Count (130-400) K/uL MPV (7.4-10.4) fL Immature Gran % (Auto) % Neut % (Auto) % Lymph % (Auto) % [place] % (Auto) % Eos % (Auto) % Baso % (Auto) % Neut # (Auto) (1.4-6.5) K/uL Lymph # (Auto) (1.2-3.4) K/uL [place] # (Auto) (0.11-0.59) K/uL Eos # (Auto) (0-0.5) K/uL Baso # (Auto) (0-0.2) K/uL Immature Gran # (Auto) (0.00-0.02) K/uL Sodium (136-145) mmol/L Potassium (3.5-5.1) mmol/L Chloride (98-107) mmol/L Carbon Dioxide (21-32) mmol/L Anion Gap (3-11) BUN (7-18) mg/dl Creatinine (0.6-1.4) mg/dl Est Cr Clr Drug Dosing ml/min Est GFR ( Amer) Est GFR (Non-Af Amer) BUN/Creatinine Ratio (10-20) Glucose (70-99) mg/dl POC Glucose 158 H 259 H (70-99) mg/dl Calcium (8.5-10.1) mg/dl Magnesium (1.8-2.4) mg/dl Total Bilirubin (0.2-1) mg/dl AST (15-37) U/L ALT (12-78) U/L Alkaline Phosphatase (45-117) U/L Total Protein (6.4-8.2) gm/dl Albumin (3.4-5.0) gm/dl Globulin (2.5-4.0) gm/dl Albumin/Globulin Ratio (0.9-2) PG Care Time/CCT Total # of Minutes Spent Total Time Spent with Patient: Total time spent is greater than 50% in coordination of care (as documented) at patient's floor/unit and/or counseling patient: Coding Level of Care Code 43574 Subseq Hosp Care Lvl 3 Diagnoses COVID-19 U07.1 Type 1 diabetes mellitus with retinopathy, with long-term current use of insulin E10.319 Status post kidney transplant Z94.0 Hypertension I10 Hypothyroidism E03.9 GERD (gastroesophageal reflux disease) K21.9 Gout M10.9 Hypercholesteremia E78.00 Hallucinations R44.3 Hiccups R06.6 DVT prophylaxis Z29.9
[2020-05-01] MEDS: FAMOTIDINE 20 MG TAB PO SCH (21:03)
[2020-05-01] MEDS: SODIUM CHLORIDE 0.9% 10ML FLUSH IV SCH (21:05)
[2020-05-01] MEDS: REMDESIVIR 100 MG in SODIUM CHLORIDE 0.9% 230 ML IV SCH (21:06)
[2020-05-02] MEDS: INSULIN ASPART 100 UNITS/ML 3 ML PEN SC SCH ×5 (00:02→17:20)
[2020-05-02] MEDS: LEVOTHYROXINE SODIUM 200 MCG TABLET PO SCH (05:30)
[2020-05-02 07:36] LABS: Albumin Level 3.1 gm/dl (3.4-5.0); BUN Creatinine Ratio 32.4 (10-20); Calcium 9.3 mg/dl (8.5-10.1); Creatinine Clr Calc Pharmacy 74.3 ml/min; Est GFR (African American) 78.5; Est GFR (Non-African American) 67.7; Potassium 4.4 mmol/L (3.5-5.1)
[2020-05-02 07:38] LABS: Albumin Globulin Ratio 0.8 (0.9-2); Bilirubin,Total 0.6 mg/dl (0.2-1); Globulin 3.8 gm/dl (2.5-4.0); Total Protein 6.9 gm/dl (6.4-8.2)
[2020-05-02] MEDS: INSULIN GLARGINE SOLOSTAR 100 UNITS/ML 3 ML PEN SC SCH (08:33)
[2020-05-02] MEDS: LIDOCAINE 5% 1 PATCH TD SCH (08:34)
[2020-05-02] MEDS: TACROLIMUS 1 MG CAP PO SCH (08:35)
[2020-05-02] MEDS: MYCOPHENOLATE MOFETIL 250 MG CAP PO SCH (08:36)
[2020-05-02] MEDS: MULTIVITAMIN TAB PO SCH (08:36)
[2020-05-02] MEDS: METOPROLOL TARTRATE 25 MG TAB PO SCH (08:36)
[2020-05-02] MEDS: ASPIRIN 81 MG ECTAB PO SCH (08:37)
[2020-05-02] MEDS: amLODIPine BESYLATE 5 MG TAB PO SCH (08:37)
[2020-05-02] MEDS: MONTELUKAST SODIUM 10 MG TABLET PO SCH (08:37)
[2020-05-02] MEDS: dexAMETHasone 6 MG in SYRINGE 0 ML IV SCH (08:44)
[2020-05-02] MEDS: ENOXAPARIN INJ 60 MG/0.6 ML SYR SQ SCH (08:44)
[2020-05-02] MEDS ORDERED: INSULIN HUMAN NPH SC SCH (09:00)
--- NOTE | 2020-05-02 12:02 | Pharmacy Report ---
Pharmacy Glycemic Short Note 2 - Date of Service May 02, 2020 - Glycemic Short BSG Results (Last 24 hours): 05/01/20 05/01/20 05/01/20 16:46 20:40 23:56 Glucose POC Glucose 253 H 205 H 159 H 05/02/20 05/02/20 05/02/20 04:24 05:55 07:29 Glucose 96 POC Glucose 116 H 106 H 05/02/20 11:13 Glucose POC Glucose 175 H OUTPATIENT ANTIDIABETIC REGIMEN: * Humalog pump TDD 67-77 units/day * A.9% 04/29/20 ASSESSMENT: 05/02 * Fasting BSG continues to be within goal range, may need to decrease if further downtrend * Prandial BSGs remained elevated throughout the day yesterday, will trial small NPH dose in the morning with dexamethasone today (~.15 units/kg) rather than tightening carb ratio/correction * Reassess in AM for additional changes 05/01 * Fasting BSG remains well controlled on 55 units of basal insulin * Novolog scale tightened again last evening. Will monitor the postprandial effects of this change throughout the day today before making further changes. * Patient remains on steroids and is tolerating a diet. 04/30 * Fasting BSG well controlled today with 60 units of basal insulin. Will continue with 55 units Lantus daily * Post prandials were still significantly elevated yesterday, improved today after NovoLog scale was tightened last evening. Will monitor to see if further tightening is needed. * Diet was switched to a T1DM today to assist with glycemic control. * Patient remains on IV dexamethasone 04/29 * T1 diabetic admitted for COVID-19 pneumonia, receiving IV dexamethasone. Insulin pump turned off last night and transitioned to basal/bolus. * Patient is tolerating a diet * Will attempt to utilize mostly once daily lantus dosing. Morning dose of Lantus was stressed based on outpatient basal dose and IV steroid use/COVID pneumonia. Will add on a very conservative Lantus scale this evening to supplement morning dose if necessary. * BSG much improved this morning, will continue current novolog scale for today to gather more data before making further changes PLAN FOR INPATIENT GLYCEMIC CONTROL: * Hold outpatient oral diabetes medications * Basal insulin * Lantus 55 units SQ this morning * 15 units NPH with dexamethasone to help w/ prandial BSGs * Bolus insulin * NovoLog per scale ACHS or Q6hrs while NPO and overnight checks * Goal Range: Low 100 mg/dL - High 140 mg/dL * Correction Factor: 10 mg/dL/unit * Nutritional / Prandial insulin per carb ratio of 1 unit per 3 grams CHO consumed
[2020-05-02] MEDS ORDERED: INSULIN HUMAN LISPRO (humaLOG) 100 UNITS/ML VIAL SC PRN (15:15)
[2020-05-02] MEDS: REMDESIVIR 100 MG in SODIUM CHLORIDE 0.9% 230 ML IV SCH (15:36)
--- NOTE | 2020-05-02 16:38 | Discharge Summary ---
Date of Service May 02, 2020 Admission HPI Per Admitting Provider Patient is a 50-year-old male with history of renal transplant at [facility] and longstanding type 1 diabetes who presents with Covid pneumonia. Patient began having symptoms however at first, presented on April 22 problem with diarrhea congestion shortness of breath. Not hypoxic. Patient states however at home he was 87% however he was not hypoxic here he is markedly dyspneic with exertion and he states that he persists to be 87% at home with exertion. He does have progression of chest x-ray from the second till today the eighth with increased interstitial infiltrates consistent with multif ocal inflammation. I did personally call program coordinator for residence life [facility] who he had no recommendations to adjust any of his rejection medications as long as his renal function is stable and has no limitations on any of the Covid related treatment such as remdesivir dexamethasone or convalescent plasma Principal Diagnosis COVID-19 Pneumonia, Acute respiratory failure with hypoxia Discharge Exam Constitutional WD/WN, vitals as above Eyes + anicteric sclerae ENMT Ears: no hearing impairment Nose: no external nose abnormality Neck trachea midline, no thyromegaly Respiratory normal respiratory effort, lungs clear to auscultation Cardiovascular RRR, no murmur, no edema Chest (Breasts) Chest: normal inspection of chest Gastrointestinal (Abdomen) normal bowel sounds, soft, nontender, no hepatosplenomegaly Musculoskeletal Extremities: extremities normal to inspection; no cyanosis and no clubbing Skin no rashes, warm and dry Neurologic moves all extremities and awake; no focal motor deficits Psychiatric A+Ox3, euthymic affect Lymphatic no lymphedema Discharge Data Allergies Allergy/AdvReac Type Severity Reaction Status Date / Time milk Allergy Unknown Unknown Verified 05/01/20 15:37 cyclobenzaprine AdvReac Mild FELT Verified 04/28/20 14:19 "AWFUL" Consultations 04/28/20 14:27 ED Decision to Admit Stat Ordered Studies CXR Hospital Course (1) COVID-19: Pneumonia seen on chest x-ray, reports hypoxia at home to 87% with exertion as well as here which resolved prior to discharge. Lowest POx was 90% with ambulation on day of dsicahrge and ZAPATA much improved -continue dexamethasone x10-day course-needs 5 more days after dc -completed Remdesevir x5-day course -received convalescent plasma on the improvement leader of 04/30 -passed a 2 step walk test (2) Type 1 diabetes mellitus with retinopathy, with long-term current use of insulin: Patient typically on glargine plus an insulin pump. With hyperglycemia here secondary to dexamethasone which is now improved Glycemic control from pharmacy consultation is placed and they are managing with basal bolus insulin His insulin pump has been removed but he will replace upon discharge and manage glucose at home Hemoglobin A1c 7.9% (3) Status post kidney transplant: Admitting hospitalist spoke to program coordinator for residence life upon admission-okay to continue tacrolimus and mycophenolate as ordered His creatinine is improved from admission at 1.26 Follow BMP as outpt (4) Hypertension: Blood pressures are fairly well controlled Continue amlodipine and metoprolol (5) Hypothyroidism: TSH normal in 03/2020 -continue Synthroid 200 (6) GERD (gastroesophageal reflux disease): with exacerbation currently on decadron, now resolved with starting Pepcid -Continue pepcid 20mg qhs x 1 month (7) Gout: No acute issues (8) Hypercholesteremia: Continue pravastatin, aspirin (9) Hallucinations: Had visual and auditory hallucinations that his cats were in his room on the night of 04/29-likely secondary to IV Decadron as well as very poor sleep and acute illness Supportive care and continue to treat underlying issues Encourage sleep-started melatonin 3 mg at bedtime as needed for insomnia This issue seems to have resolved Not bothersome to him, no need to treat (10) Hiccups: resolved with Reglan and baclofen (11) DVT prophylaxis: Lovenox Disposition-dc to home Total Time Total Time Spent Total Time Spent (In Minutes): 35 min Total Time Includes: Examination of the Patient, Discharge Planning and Medication Reconciliation Discharge Plan Discharge Items Patient Disposition: Home - Self-Care Reason For Visit: COVID PNEUMONIA Discharge Diagnosis: COVID-19 Pneumonia, Acute respiratory failure with hypoxia Condition on Discharge: Good Activity: As commented below Lifting: Gradually increase as tolerated Bathing: No limitations Exercise/Sports: Gradually increase as tolerated Driving/Machine Use: No limitations Weightbearing: Full weightbearing Non-emergency contact: Primary Care Provider Call non-emergency contact if: you have any medication questions, your symptoms worsen and you have a fever Follow-up/Referrals: Ilya Hooks MD [Primary Care Provider] - (Follow up within 1-2 weeks after discharge.) Diet: Carb Count or DM1 and Heart Healthy Addtl Attending Provider Instructions: Please finish out 5 more days of dexamethasone 6mg once daily. You should turn your insulin pump back on when you get home and expect your glucose readings will be higher than usual for the next 5-6 days because of the steroids. You did not require any oxygen at the time of discharge. Please continue on the Pepcid (famotidine) x 1 month for acid reflux. You can use the albuterol inhaler as needed for shortness of breath. Please remain out of work and on a total 20 day quarantine through May 11. You can return to work on 05/12/20. It was a pleasure taking care of you, Bela Short M.D. Pending Studies at Discharge: No Stand-Alone Forms: [facility], Work/School Release (Inpt) Medications and DC Order Prescriptions: New famotidine 20 mg Tablet 20 mg PO HS Qty: 30 RF: 0 dexamethasone 6 mg tablet 6 mg PO DAILY Qty: 5 RF: 0 albuterol sulfate 90 mcg/actuation HFA aerosol inhaler 1 inh inhalation Q6H PRN (Reason: shortness of breath or wheezing) Qty: 18 RF: 0 Continued insulin lispro [Humalog U-100 Insulin] 100 unit/mL solution 80 units continuous subcutaneous infusion DAILY 90 Days Qty: 72 RF: 3 (DME) Accu-Chek Guide test strips Strip See Dose Instructions .ROUTE .MEDSUPPLY Qty: 400 RF: 3 levothyroxine 200 mcg tablet 200 mcg PO DAILY Qty: 90 RF: 3 pravastatin 80 mg tablet 80 mg PO DAILY RF: 0 (DME) lancets [Accu-Chek Fastclix Lancet Drum] misc See Dose Instructions .ROUTE .MEDSUPPLY Qty: 50 RF: 0 amlodipine 10 mg tablet 10 mg PO DAILY Qty: 30 RF: 0 (DME) insulin syringe-needle U-100 [BD Insulin Syringe Ultra-Fine] 0.3 mL 31 gauge x 5/16" syringe See Dose Instructions .ROUTE .MEDSUPPLY Qty: 10 RF: 0 Lantus U-100 Insulin 100 unit/mL solution 15 units SQ HS RF: 0 metoprolol tartrate 25 mg tablet 25 mg PO BID Qty: 60 RF: 0 montelukast 10 mg tablet 10 mg PO DAILY Qty: 90 RF: 0 multivitamin tablet 1 tab PO DAILY RF: 0 mycophenolate mofetil 250 mg capsule 1,000 mg PO BID RF: 0 levocetirizine [Xyzal] 5 mg tablet 5 mg PO DAILY RF: 0 tacrolimus 5 mg Capsule 5 mg PO Q12H RF: 0 aspirin 81 mg Tablet,Delayed Release (Dr/Ec) 81 mg PO DAILY RF: 0 Discharge Orders: Discharge Order (Routine); Ordered 05/02/20 Ordered By: Bela Paredes/Other Patient Handouts: Managing Type 1 Diabetes Admission Data Admit Date/Time: 04/28/20 16:02 Attending Provider: Bela Short Admit Provider: Octavio Martinez Primary Care Provider: Ilya Hooks V. Other Providers: Octavio Martinez Coding Level of Care Code D/C Day Management >30 mins Diagnoses COVID-19 U07.1 Type 1 diabetes mellitus with retinopathy, with long-term current use of insulin E10.319 Status post kidney transplant Z94.0 Hypertension I10 Hypothyroidism E03.9 GERD (gastroesophageal reflux disease) K21.9 Gout M10.9 Hypercholesteremia E78.00 Hallucinations R44.3 Hiccups R06.6 DVT prophylaxis Z29.9
== END 2020-05-02 18:34 | disposition home or self-care (01) | DRG 177 ==
LOC: ED 12:40 → 2E 16:02 → SUATTDRO 16:02 → 2E 17:37